=== PATIENT | female | born 1955 | race Caucasian/White ===

== ENCOUNTER 2016-08-27 16:52 | Inpatient (IN) | payer OTHER, MEDICARE ==
[~2016-08-27 16:52] MED LIST: ASEN5TAB SL; AUGM500T7 PO; BUSP5 PO; KCL10 PO; LEVO.125 PO; LIOT25 PO; PRED10 PO; PROT40TA PO; SYMB160A INH; TIGA300C2 PO; TRAZ50TA4 PO; VENL-39 PO
[2016-08-27 17:00] VITALS: BP 125/74; PULSE 86; RESP 18; TEMP 98.4; O2SAT 100
[2016-08-27] MEDS ORDERED: METOCLOPRAMIDE HCL 10 MG/2 ML VIAL IV PUSH ONE (17:30)
[2016-08-27] MEDS ORDERED: THIAMINE HCL 200 MG/2 ML VIAL IM ONE (17:30)
[2016-08-27] MEDS ORDERED: SODIUM CHLORIDE 0.9% FLUSH 10 ML FLUSH IVF PRN (17:30)
[2016-08-27] MEDS ORDERED: SODIUM CHLORID 0.9% 500 ML INJ 500 ML IV ONE (17:30)
--- NOTE | 2016-08-27 17:30 | PD ---
HPI Chief Complaint: Headache Time Seen by Provider: 17:30 Travel History International Travel<30 days: No Contact w/Intl Traveler<30days: No Traveled to known affect area: No PFSH Past Medical History Autoimmune Disease: No Blood Disorders: No Bipolar Disorder: Yes Anxiety: Yes Depression: Yes Cancer: No Cardiovascular Problems: No High Cholesterol: Yes COPD: Yes Diabetes: No Diminished Hearing: No Endocrine: Yes (HYPOTHYROIDISM) Gastrointestinal Disorders: Yes GERD: Yes Genitourinary: Yes Headaches: Yes (MIGRAINES) Hiatal Hernia: Yes Immune Disorder: No Implanted Vascular Access Dvce: Yes Musculoskeletal: Yes Neurologic: Yes Psychiatric: Yes (ETOH ABUSE) Reproductive: No Respiratory: Yes Thyroid Disease: Yes Triglycerides - High: Yes Menopausal: Yes Past Surgical History Abdominal Surgery: Yes (HERNIA REPAIR) AICD: No Appendectomy: Yes Arteriovenous Shunt: No Cardiac Surgery: No Ear Surgery: No Endocrine Surgery: No Eye Surgery: No Genitourinary Surgery: No Gynecologic Surgery: No Insulin Pump: No Joint Replacement: Yes (LEFT KNEE) Oral Surgery: No Pacemaker: No Thoracic Surgery: No Social History Alcohol Use: Yes (1 LITER VODKA Q DAY) Tobacco Use: Yes Substance Use: No Allergies-Medications (Allergen,Severity, Reaction): Coded Allergies: Pamelor (Verified Allergy, Severe, UNKNOWN, 01/28/15) Vistaril (Verified Allergy, Severe, HALLUCINATIONS, 01/28/15) Buspar (Verified Allergy, Intermediate, UNKNOWN, 01/28/15) Reported Meds & Prescriptions Reported Meds & Active Scripts Active Buspar 5 Mg Tab (Buspirone HCl) 5 Mg Tab 5 Mg PO DAILY 7 Days Klor-Con 10 (Potassium Chloride) 10 Meq Tabcr 40 Meq PO Q12HR 7 Days Deltasone 10 Mg Tab (Prednisone) 10 Mg Tab 10 Mg PO DAILY 7 Days Protonix (Pantoprazole Sodium) 40 Mg Tabdr 40 Mg PO Q12HR 30 Days Cytomel (Liothyronine Sodium) 25 Mcg Tab 25 Mcg PO DAILY Synthroid (Levothyroxine Sodium) 125 Mcg Tab 125 Mcg PO DAILY@0600 30 Days Symbicort (Budesonide/Formoterol Fumarate) 60 Puff Aero 2 Puff INH Q12HR 30 Days Augmentin 500MG/125MG (Amoxicillin/Clavulanate Potassium) 500 Mg Tab 500 Mg PO Q8HR 5 Days Reported Buspar 5 Mg Tab (Buspirone HCl) 5 Mg Tab 5 Mg PO BID Tigan (Trimethobenzamide HCl) 300 Mg Cap 300 Mg PO Trazodone Hcl (Trazodone HCl) 50 Mg Tab 50 Mg PO BID Saphris 5 mg (Asenapine Maleate 5 mg) 5 Mg Sub 1 Tab SL BID Venlafaxine Hcl Er 75 Mg Tab (Venlafaxine HCl) 75 Mg Tee 75 Mg PO DAILY Data Data Orders Electrocardiogram (08/27/16 17:29) Prothrombin Time / Inr (Pt) (08/27/16 17:29) Complete Blood Count With Diff (08/27/16 17:29) Comprehensive Metabolic Panel (08/27/16:29) Drug Screen, Random Urine (08/27/16:29) Troponin I (08/27/16 17:29) Urinalysis - C+S If Indicated (08/27/16 17:29) Ct Brain W/O Iv Contrast(Rout) (08/27/16 17:29) Chest, Single Ap (08/27/16 17:29) Ecg Monitoring (08/27/16 17:29) Iv Access Insert/Monitor (08/27/16 17:29) Oximetry (08/27/16 17:29) Sodium Chloride 0.9% Flush (Ns Flush) (08/27/16 17:30) Alcohol (Ethanol) (08/27/16 17:29) Metoclopramide Inj (Reglan Inj) (08/27/16 17:30) Lipase (08/27/16 17:29) Thiamine Inj (Thiamine Inj) (08/27/16 17:30) Ns (Bolus) Inj (08/27/16 17:30) Richie Lemus Aug 27, 2016 17:30
[2016-08-27 17:45] VITALS: BP 125/74; PULSE 86; RESP 18; TEMP 98.4; O2SAT 98; O2SAT 99
--- NOTE | 2016-08-27 17:54 | RADRPT ---
EXAM DATE/TIME: 08/27/2016 17:27 [facility] COMPARISON: CHEST SINGLE AP, February 02, 2015, 3:11. INDICATIONS : Short of breath MEDICAL HISTORY : Cerebrovascular disease. Chronic obstructive pulmonary disease. Asthma SURGICAL HISTORY : None. ENCOUNTER: Initial ACUITY: 2 months PAIN SCORE: 0/10 LOCATION: chest FINDINGS: Mild left lung base atelectasis and/or infiltrate is seen. There is no appreciable pleural effusion f or technique. Heart and mediastinum are unremarkable. There is lucency overlapping the right hemidia phragm probably the patient's colon interposed at this site and there may be slight atelectasis in th e right lung base as well. CONCLUSION: Mild left lung base atelectasis and/or infiltrate is seen. Evgeny Barba MD on August 27, 2016 at 17:51 Board Certified Radiologist. This report was verified electronically.
[2016-08-27 18:26] LABS: AUTOMATED NEUTROPHIL # 4.6 TH/MM3 (1.8-7.7); BASOPHIL % 0.8 % (0.0-2.0); EOSINOPHIL % 0.4 % (0.0-4.0); HEMATOCRIT 41.6 % (35.0-46.0); LYMPH % 19.6 % (9.0-44.0); LYMPHOCYTE # 1.2 TH/MM3 (1.0-4.8); MEAN CELL VOLUME 101.6 FL (80.0-100.0); MEAN CORPUSCULAR HEMOGLOBIN 34.7 PG (27.0-34.0); MEAN CORPUSCULAR HGB CONC 34.2 % (32.0-36.0); MONO % 5.9 % (0.0-8.0); NEUT % 73.3 % (16.0-70.0); PLATELET COUNT 86 TH/MM3 (150-450); RED BLOOD COUNT 4.09 MIL/MM3 (4.00-5.30); RED CELL DISTRIBUTION WIDTH 15.9 % (11.6-17.2); WHITE BLOOD COUNT 6.2 TH/MM3 (4.0-11.0)
[2016-08-27 18:29] LABS: BLOOD, URINE NEG (NEG); GLUCOSE,URINE NEG (NEG); KETONE, URINE NEG (NEG); NITRITE,URINE NEG (NEG); SQUAMOUS EPITHELIAL CELL URINE 1 /hpf (0-5); URINE COLOR LIGHT-YELLOW (YELLW/STRAW)
[2016-08-27 18:29] LABS: HEMO FLAGS AUTO DIFF
[2016-08-27 18:33] LABS: AMPHETAMINE, URINE NEG (NEG); BARBITURATES, URINE NEG (NEG); COCAINE, URINE NEG (NEG)
[2016-08-27 18:35] LABS: COMMENT (UR) CATH-CULT NOT IND; CULTURE IF INDICATED CATH CULTURE NOT IND
[2016-08-27 18:37] LABS: INTERNATIONAL NORMALIZED RATIO 1.1 RATIO
--- NOTE | 2016-08-27 18:37 | RADRPT ---
EXAM DATE/TIME: 08/27/2016 18:17 [facility] COMPARISON: CT BRAIN W/O CONTRAST, January 29, 2015, 10:45. INDICATIONS : Cephalgia. RADIATION DOSE: 46.03 CTDIvol (mGy) MEDICAL HISTORY : None SURGICAL HISTORY : None. ENCOUNTER: Initial ACUITY: 1 day PAIN SCALE: 5/10 LOCATION: cranial TECHNIQUE: Multiple contiguous axial images were obtained of the head. Using automated exposure control and adj ustment of the mA and/or kV according to patient size, radiation dose was kept as low as reasonably a chievable to obtain optimal diagnostic quality images. FINDINGS: There is no evidence for intracranial hemorrhage, mass effect, mass lesions, edema, or extra-axial fl uid collections. The visualized bony structures appear intact. The ventricles are normal size for t he patient's age. There are no signs of acute infarction for technique. CONCLUSION: Unremarkable study. Evgeny Barba MD on August 27, 2016 at 18:34 Board Certified Radiologist. This report was verified electronically.
[2016-08-27 18:49] LABS: ALKALINE PHOSPHATASE 161 U/L (45-117); ALT (GPT) 108 U/L (10-53); ANION GAP 13 MEQ/L (5-15); AST (GOT) 295 U/L (15-37); BICARBONATE 30.7 MEQ/L (21.0-32.0); BLOOD UREA NITROGEN 2 MG/DL (7-18); CHLORIDE 83 MEQ/L (98-107); GLOMERULAR FILTRATION RATE 98 ML/MIN (>89); SODIUM (NA) 127 MEQ/L (136-145); TOTAL BILIRUBIN ADULT 0.9 MG/DL (0.2-1.0)
[2016-08-27] MEDS ORDERED: LACTTAB8 PO (19:19)
[2016-08-27] MEDS ORDERED: BUPR75TA PO (19:19)
[2016-08-27] MEDS ORDERED: OLAN20TA PO (19:19)
[2016-08-27] MEDS ORDERED: FLUO40CA PO (19:19)
[2016-08-27] MEDS ORDERED: LOVA40TA PO (19:19)
[2016-08-27] MEDS ORDERED: GABA600T PO (19:19)
[2016-08-27] MEDS ORDERED: MOBI7.5T PO (19:19)
--- NOTE | 2016-08-27 19:19 | PD ---
HPI Chief Complaint: General Weakness Time Seen by Provider: 17:29 Travel History International Travel<30 days: No Contact w/Intl Traveler<30days: No Traveled to known affect area: No History of Present Illness HPI 60-year-old female came to the emergency room for multiple complaints that are been going on for past couple months. However, her most recent complaint is nausea and vomiting and generalized weakness. Patient was having some slurred speech while she was talking and when I asked if she has been drinking alcohol she said she had some tonight. She says she has not seen her primary care in many years but has an appointment with him tomorrow. Vital signs were relatively stable. PFSH Past Medical History Narrative Medical List of her past medical, surgical, social and family history was reviewed from the nursing note. Autoimmune Disease: No Blood Disorders: No Bipolar Disorder: Yes Anxiety: Yes Depression: Yes Cancer: No Cardiovascular Problems: No High Cholesterol: Yes COPD: Yes Diabetes: No Diminished Hearing: No Endocrine: Yes (HYPOTHYROIDISM) Gastrointestinal Disorders: Yes GERD: Yes Genitourinary: Yes Headaches: Yes (MIGRAINES) Hiatal Hernia: Yes Immune Disorder: No Implanted Vascular Access Dvce: Yes Musculoskeletal: Yes Neurologic: Yes Psychiatric: Yes (ETOH ABUSE) Reproductive: No Respiratory: Yes Thyroid Disease: Yes Triglycerides - High: Yes ?: Not Menopausal: Yes Past Surgical History Abdominal Surgery: Yes (HERNIA REPAIR) AICD: No Appendectomy: Yes Arteriovenous Shunt: No Cardiac Surgery: No Ear Surgery: No Endocrine Surgery: No Eye Surgery: No Genitourinary Surgery: No Gynecologic Surgery: No Insulin Pump: No Joint Replacement: Yes (LEFT KNEE) Neurologic Surgery: No Oral Surgery: No Pacemaker: No Thoracic Surgery: No Other Surgery: No Social History Alcohol Use: Yes (1 LITER VODKA Q DAY) Tobacco Use: Yes Substance Use: No Allergies-Medications (Allergen,Severity, Reaction): Coded Allergies: Pamelor (Verified Allergy, Severe, UNKNOWN, 08/27/16) Vistaril (Verified Allergy, Severe, HALLUCINATIONS, 08/27/16) Buspar (Verified Allergy, Intermediate, UNKNOWN, 08/27/16) Comments List of her allergies reviewed from the nursing note. Reported Meds & Prescriptions Reported Meds & Active Scripts Active Reported Lactobacillus Acidophilus 1 Tab Tab 1 Tab PO DAILY Take with food Bupropion HCl 75 Mg Tab 75 Mg PO DAILY Fluoxetine (Fluoxetine HCl) 40 Mg Cap 40 Cap PO DAILY Olanzapine 20 Mg Tab 20 Mg PO HS Gabapentin 600 Mg Tab 600 Mg PO TID Lovastatin 40 Mg Tab 40 Mg PO DAILY Mobic (Meloxicam) 7.5 Mg Tab 7.5 Mg PO DAILY Narrative Medication List of her home medications reviewed from the nursing note. Review of Systems Except as stated in HPI: all other systems reviewed are Neg Physical Exam Narrative GENERAL: Awake, alert, mild distress, looks older than her age SKIN: Focused skin assessment warm/dry. HEAD: Atraumatic. Normocephalic. EYES: Pupils equal and round. No scleral icterus. No injection or drainage. ENT: No nasal bleeding or discharge. Mucous membranes pink and moist. NECK: Trachea midline. No JVD. CARDIOVASCULAR: Regular rate and rhythm. No murmur appreciated. RESPIRATORY: No accessory muscle use. Clear to auscultation. Breath sounds equal bilaterally. GASTROINTESTINAL: Abdomen soft, non-tender, nondistended. Hepatic and splenic margins not palpable. MUSCULOSKELETAL: No obvious deformities. No clubbing. No cyanosis. No edema. NEUROLOGICAL: Awake and alert. No obvious cranial nerve deficits. Motor grossly within normal limits. Slightly slurred speech. PSYCHIATRIC: Appropriate mood and affect; insight and judgment normal. Data Data Last Documented VS Vital Signs Date Time Temp Pulse Resp B/P Pulse Ox O2 Delivery O2 Flow Rate FiO2 08/27/16 17:45 86 20 99 Room Air 08/27/16 17:45 98.4 125/74 Orders Electrocardiogram (08/27/16 17:29) Prothrombin Time / Inr (Pt) (08/27/16 17:29) Complete Blood Count With Diff (08/27/16 17:29) Comprehensive Metabolic Panel (08/27/16 17:29) Drug Screen, Random Urine (08/27/16 17:29) Troponin I (08/27/16 17:29) Urinalysis - C+S If Indicated (08/27/16 17:29) Ct Brain W/O Iv Contrast(Rout) (08/27/16 17:29) Chest, Single Ap (08/27/16 17:29) Ecg Monitoring (08/27/16 17:29) Iv Access Insert/Monitor (08/27/16 17:29) Oximetry (08/27/16 17:29) Sodium Chloride 0.9% Flush (Ns Flush) (08/27/16 17:30) Alcohol (Ethanol) (08/27/16 17:29) Metoclopramide Inj (Reglan Inj) (08/27/16 17:30) Lipase (08/27/16 17:29) Thiamine Inj (Thiamine Inj) (08/27/16 17:30) Sodium Chlorid 0.9% 500 Ml Inj (Ns 500 M (08/27/16 17:30) Potassium Chlor 20 Meq Premix (Kcl 20 Me (08/27/16 19:30) Admit Order (Ed Use Only) (08/27/16 19:24) Labs Laboratory Tests Test 08/27/16 08/27/16 17:50 18:00 Urine Color LIGHT-YELLOW Urine Turbidity CLEAR Urine pH 6.0 Urine Specific [place] 1.002 Urine Protein NEG mg/dL Urine Glucose (UA) NEG mg/dL Urine Ketones NEG mg/dL Urine Occult Blood NEG Urine Nitrite NEG Urine Bilirubin NEG Urine Urobilinogen LESS THAN 2.0 MG/DL Urine Leukocyte Esterase NEG Urine RBC LESS THAN 1 /hpf Urine WBC LESS THAN 1 /hpf Urine Squamous Epithelial 1 /hpf Cells Microscopic Urinalysis Comment CATH-CULT NOT IND Urine Opiates Screen NEG Urine Barbiturates Screen NEG Urine Amphetamines Screen NEG Urine Benzodiazepines Screen NEG Urine Cocaine Screen NEG Urine Cannabinoids Screen NEG White Blood Count 6.2 TH/MM3 Red Blood Count 4.09 MIL/MM3 Hemoglobin 14.2 GM/DL Hematocrit 41.6 % Mean Corpuscular Volume 101.6 FL Mean Corpuscular Hemoglobin 34.7 PG Mean Corpuscular Hemoglobin 34.2 % Concent Red Cell Distribution Width 15.9 % Platelet Count 86 TH/MM3 Mean Platelet Volume 8.7 FL Neutrophils (%) (Auto) 73.3 % Lymphocytes (%) (Auto) 19.6 % Monocytes (%) (Auto) 5.9 % Eosinophils (%) (Auto) 0.4 % Basophils (%) (Auto) 0.8 % Neutrophils # (Auto) 4.6 TH/MM3 Lymphocytes # (Auto) 1.2 TH/MM3 Monocytes # (Auto) 0.4 TH/MM3 Eosinophils # (Auto) 0.0 TH/MM3 Basophils # (Auto) 0.0 TH/MM3 CBC Comment AUTO DIFF Differential Total Cells 100 Counted Neutrophils % (Manual) 73 % Band Neutrophils % 4 % Lymphocytes % 22 % Monocytes % 1 % Neutrophils # (Manual) 4.8 TH/MM3 Nucleated Red Blood Cells 1 /100 WBC Differential Comment FINAL DIFF MANUAL Platelet Estimate LOW Platelet Morphology Comment NORMAL Target Cells 1+ Stomatocytes 1+ Prothrombin Time 12.0 SEC Prothromb Time International 1.1 RATIO Ratio Sodium Level 127 MEQ/L Potassium Level 3.0 MEQ/L Chloride Level 83 MEQ/L Carbon Dioxide Level 30.7 MEQ/L Anion Gap 13 MEQ/L Blood Urea Nitrogen 2 MG/DL Creatinine 0.62 MG/DL Estimat Glomerular Filtration 98 ML/MIN Rate Random Glucose 94 MG/DL Calcium Level 8.6 MG/DL Total Bilirubin 0.9 MG/DL Aspartate Amino Transf 295 U/L (AST/SGOT) Alanine Aminotransferase 108 U/L (ALT/SGPT) Alkaline Phosphatase 161 U/L Troponin I LESS THAN 0.02 NG/ML Total Protein 7.1 GM/DL Albumin 3.2 GM/DL Lipase 40 U/L Ethyl Alcohol Level LESS THAN 3 MG/DL MDM Medical Decision Making Medical Screen Exam Complete: Yes Emergency Medical Condition: Yes Medical Record Reviewed: Yes Interpretation(s) Twelve-lead EKG was reviewed by me. Normal sinus rhythm, left axis deviation, questionable old inferior MA, poor R-wave progression, nonspecific ST-T wave changes. Heart rate of 83 bpm. Differential Diagnosis Alcohol intoxication, electrolyte abnormality, dehydration Narrative Course 7:13 PM the test results are back. Patient is however the tree make with abnormal LFTs. Her alcohol level is 0. I would like to admit her for hyponatremia. Awaiting for the hospitalist to call back. Critical Care Narrative Aggregate critical care time was 45 minutes. Time to perform other separately billable procedures was not included in the critical care time. My time did not include minutes spent treating any other patients simultaneously or on activities that did not directly contribute to the patient's treatment. The services I provided to this patient were to treat and/or prevent clinically significant deterioration that could result in: Severe hyponatremia, hypokalemia, replacement therapy I provided critical care services requiring my management, as noted below: Chart data review, documentation time, medication orders and management, vital sign assessments/reviewing monitor data, ordering and reviewing lab tests, ordering and interpreting/reviewing x-rays and diagnostic studies, care of the patient and discussion of the patient with the admitting physicians. Procedures EKG Prior to Arrival: No Diagnosis Primary Impression: Hyponatremia Additional Impressions: Elevated LFTs Hypokalemia DT risk Chronic alcoholic brain syndrome Vomiting Qualified Code: R11.2 - Non-intractable vomiting with nausea, unspecified vomiting type Admitting Information Admitting Physician Requests: Admit Aamir Quarles MD Aug 27, 2016 19:19
[2016-08-27] MEDS ORDERED: POTASSIUM CHLOR 20 MEQ PREMIX 100 ML IV ONE (19:30)
[2016-08-27] MEDS ORDERED: ACETAMINOPHEN 325 MG TAB PO PRN (19:45)
[2016-08-27] MEDS ORDERED: MORPHINE SULFATE 4 MG/ML INJ IV PRN (19:45)
[2016-08-27] MEDS ORDERED: FLUMAZENIL 0.5 MG/5 ML VIAL IV PUSH PRN (19:45)
[2016-08-27] MEDS ORDERED: SODIUM CHLORIDE 0.9% FLUSH 10 ML FLUSH IV FLUSH PRN (19:45)
[2016-08-27] MEDS ORDERED: LORazepam 2 MG/ML VIAL IV PUSH PRN ×3 (19:45)
[2016-08-27] MEDS ORDERED: LORazepam 2 MG TAB PO PRN (19:45)
[2016-08-27] MEDS ORDERED: RESP: ALBUTEROL 2.5 MG/IPRATROPIUM 0.5 MG NEB (PRN) NEB (19:45)
[2016-08-27] MEDS ORDERED: BISACODYL 10 MG SUPP RECTAL PRN (19:45)
[2016-08-27] MEDS ORDERED: HALOPERIDOL LACTATE 5 MG/ML AMP IM PRN (19:45)
--- NOTE | 2016-08-27 19:45 | HHI.HP ---
HPI Service [facility] Primary [facility] Physician Fabricio Mcgrath MD Admission Diagnosis chronic alcoholic, vomiting, hyponatremia, hypokalemia Diagnoses: (1) Alcohol abuse Diagnosis: Principal (2) Hypokalemia Diagnosis: Principal (3) Hyponatremia Diagnosis: Principal (4) Elevated LFTs Diagnosis: Principal (5) PNA (pneumonia) Diagnosis: Principal (6) Thrombocytopenia Diagnosis: Principal (7) Tobacco abuse Diagnosis: Principal Travel History International Travel<30 Days: No Contact w/Intl Traveler <30 Da: No Traveled to Known Affected Are: No History of Present Illness This is a 60-year-old female with a PMH of Anxiety, Depression, Bipolar Disorder , COPD, Alcohol Abuse and Tobacco Abuse who presented to the ER with complaints of generalized weakness, nausea and vomiting x1 day in addition to "migraine headache". Denies fever, chills or SOB, does note non-productive cough x2 days. Noted to be acutely intoxicated while in ER, per report pt drinks approx 1L Vodka per day, no alcohol since start of symptoms. Alcohol <3. CBC at baseline. Platelets 86, previously 1:30 on 02/01/15. Na 127. K+ 3.0. LFTs elevated. INR 1.1. Urine Drug Screen negative. UA negative. CXR with mild left lung base infiltrate. CT Head with no acute findings. Review of Systems Except as stated in HPI: all other systems reviewed are Neg ROS: 14 point review of systems otherwise negative. Past Family Social History Past Medical History PMH: Anxiety, Depression, Bipolar Disorder, COPD, Alcohol Abuse and Tobacco Abuse Past Surgical History PAST SURGICAL HISTORY: Hernia Repair, Appendectomy, Left Knee Replacement Allergies: Coded Allergies: Pamelor (Verified Allergy, Severe, UNKNOWN, 08/27/16) Vistaril (Verified Allergy, Severe, HALLUCINATIONS, 08/27/16) Buspar (Verified Allergy, Intermediate, UNKNOWN, 08/27/16) Family History PAST FAMILY HISTORY: Reviewed. No h/o DM or CAD Social History PAST SOCIAL HISTORY: Drinks 1 L Vodka per day. Positive for tobacco. Negative for drugs. Physical Exam Vital Signs Vital Signs Date Time Temp Pulse Resp B/P Pulse Ox O2 Delivery O2 Flow Rate FiO2 08/27/16 17:45 86 20 99 Room Air 08/27/16 17:45 98.4 86 18 125/74 99 Room Air 08/27/16 17:45 86 18 125/74 98 Room Air 08/27/16 17:00 98.4 86 18 125/74 100 Physical Exam PE: GENERAL: Middle-aged white female in no acute distress, sitting up in stretcher. Significant other bedside. HEENT: PERRLA, EOMI. No scleral icterus or conjunctival pallor. No lid lag or facial droop. CARDIOVASCULAR: Regular rate and rhythm. No obvious murmurs to auscultation. No chest tenderness to palpation. RESPIRATORY: No obvious rhonchi or wheezing. Clear to auscultation. Breath sounds equal bilaterally. GASTROINTESTINAL: Abdomen soft, non-tender, nondistended. BS normal. MUSCULOSKELETAL: Extremities without clubbing, cyanosis, or edema. No obvious deformities. NEUROLOGICAL: Awake, alert and oriented x4. No focal neurologic deficits. Moving both upper and lower extremities spontaneously. Laboratory Laboratory Tests Test 08/27/16 08/27/16 17:50 18:00 Urine Color LIGHT-YELLOW Urine Turbidity CLEAR Urine pH 6.0 Urine Specific [place] 1.002 Urine Protein NEG Urine Glucose (UA) NEG Urine Ketones NEG Urine Occult Blood NEG Urine Nitrite NEG Urine Bilirubin NEG Urine Urobilinogen LESS THAN 2.0 Urine Leukocyte Esterase NEG Urine RBC LESS THAN 1 Urine WBC LESS THAN 1 Urine Squamous Epithelial 1 Cells Microscopic Urinalysis Comment CATH-CULT NOT IND Urine Opiates Screen NEG Urine Barbiturates Screen NEG Urine Amphetamines Screen NEG Urine Benzodiazepines Screen NEG Urine Cocaine Screen NEG Urine Cannabinoids Screen NEG White Blood Count 6.2 Red Blood Count 4.09 Hemoglobin 14.2 Hematocrit 41.6 Mean Corpuscular Volume 101.6 Mean Corpuscular Hemoglobin 34.7 Mean Corpuscular Hemoglobin 34.2 Concent Red Cell Distribution Width 15.9 Platelet Count 86 Mean Platelet Volume 8.7 Neutrophils (%) (Auto) 73.3 Lymphocytes (%) (Auto) 19.6 Monocytes (%) (Auto) 5.9 Eosinophils (%) (Auto) 0.4 Basophils (%) (Auto) 0.8 Neutrophils # (Auto) 4.6 Lymphocytes # (Auto) 1.2 Monocytes # (Auto) 0.4 Eosinophils # (Auto) 0.0 Basophils # (Auto) 0.0 CBC Comment AUTO DIFF Prothrombin Time 12.0 Prothromb Time International 1.1 Ratio Sodium Level 127 Potassium Level 3.0 Chloride Level 83 Carbon Dioxide Level 30.7 Anion Gap 13 Blood Urea Nitrogen 2 Creatinine 0.62 Estimat Glomerular Filtration 98 Rate Random Glucose 94 Calcium Level 8.6 Total Bilirubin 0.9 Aspartate Amino Transf 295 (AST/SGOT) Alanine Aminotransferase 108 (ALT/SGPT) Alkaline Phosphatase 161 Troponin I LESS THAN 0.02 Total Protein 7.1 Albumin 3.2 Lipase 40 Ethyl Alcohol Level LESS THAN 3 Result Diagram: 08/27/16 1800 08/27/16 1800 Assessment and Plan Problem List: (1) Alcohol abuse ICD Code: F10.10 Status: Acute (2) Hypokalemia ICD Code: E87.6 Status: Acute (3) Hyponatremia ICD Code: E87.1 Status: Resolved (4) Elevated LFTs ICD Code: R94.5 Status: Acute (5) PNA (pneumonia) ICD Code: J18.9 Status: Acute (6) Thrombocytopenia ICD Code: D69.6 Status: Acute (7) Tobacco abuse ICD Code: Z72.0 Status: Acute Assessment and Plan A/P: 1. Alcohol Abuse: Drinks approx 1L Vodka per day, Alcohol level 0, c/o nausea/ vomiting, high risk for severe withdrawal/DT. CIWA, MVT/Thiamine/Folate replacement, Seizure Precautions. IVF for hydration. CT Head w/ no acute findings, images reviewed by me. 2. Hyponatremia: Na 127. Likely secondary to chronic alcohol abuse compounded by acute dehydration. IVF, repeat labs in am. 3. Hypokalemia: K+ 3.0, s/p replacement in ER, will recheck and replace as needed. 4. Elevated LFTs: Elevated in comparison to labs from 02/02/15, likely secondary to chronic alcohol abuse. Will monitor. Repeat labs in a.m. 5. Thrombocytopenia: Chronic. Platelets 86, previously 130 on 02/01/15. No active bleeding. Hgb stable. Will monitor, repeat labs in am. 6. PNA: CXR w/ mild LLL infiltrate, +cough, afebrile, no leukocytosis. Start IV Rocephin/Zithro, DuoNeb prn. 7. Tobacco Abuse: Pt counselled. Ativan prn if needed. 8. DVT Prophylaxis: SCD/Teds. 9. Social work for d/c planning as needed. 10. Case discussed w/ ER physician at length. Physician Certification 2 Midnight Certification Type: Admission for Inpatient Services Order for Inpatient Services The services are ordered in accordance with Medicare regulations or non- Medicare payer requirements, as applicable. In the case of services not specified as inpatient-only, they are appropriately provided as inpatient services in accordance with the 2-midnight benchmark. Estimated LOS (days): 2 days is the estimated time the patient will need to remain in the hospital, assuming treatment plan goals are met and no additional complications. Post-Hospital Plan: Not yet determined Emilee Stockton MD Aug 27, 2016 19:45
[2016-08-27 19:48] VITALS: BP 106/63; PULSE 110; RESP 22; O2SAT 97
[2016-08-27] MEDS: SODIUM CHLOR 0.9% 1000 ML INJ 1,000 ML IV SCH (20:00)
[2016-08-27] MEDS: LORazepam 2 MG/ML VIAL IV PUSH PRN (20:01)
[2016-08-27 20:02] LABS: BANDS 4 % (0-6); CORRECTED NUCLEATED RBC 1 /100 WBC (0-0); NEUTROPHIL # MANUAL DIFF 4.8 TH/MM3 (1.8-7.7); POLYS (SEG NEUTROPHILS) 73 % (16-70); SCAN/DIFF FINAL DIFF MANUAL; WBC DIFF SAMPLE 100
[2016-08-27 20:03] LABS: TARGET CELLS 1+ (NORMAL)
[2016-08-27 20:05] LABS: PLATELET ESTIMATE SMEAR LOW (NORMAL); PLATELET MORPHOLOGY NORMAL (NORMAL); STOMATOCYTES 1+ (NORMAL)
[2016-08-27] MEDS: AZITHROMYCIN INJ 500 MG in SODIUM CHLOR 0.9% 250 ML INJ 250 ML IV SCH (20:55)
[2016-08-27] MEDS: SODIUM CHLORIDE 0.9% FLUSH 10 ML FLUSH IV FLUSH SCH (20:58)
[2016-08-27] MEDS: MULTIVITAMIN INJ 10 ML, FOLIC ACID INJ 1 MG in SODIUM CHLORID 0.9% 500 ML INJ 500 ML IV SCH (21:00)
[2016-08-27 21:10] VITALS: O2SAT 95
[2016-08-27 21:21] VITALS: BP 104/74; PULSE 96; RESP 16; O2SAT 96
[2016-08-27 21:53] VITALS: BP 133/93; PULSE 87; RESP 16; TEMP 98.1; O2SAT 97
[2016-08-27] MEDS: PANTOPRAZOLE SODIUM 40 MG VIAL IV PUSH SCH (22:15)
[2016-08-27] MEDS: cefTRIAXone INJ 1,000 MG in SODIUM CHLORIDE 0.9% INJ 100 ML IV SCH (22:15)
[2016-08-28 04:05] VITALS: BP 98/72; PULSE 93; RESP 16; TEMP 98; O2SAT 98
[2016-08-28] MEDS: SODIUM CHLOR 0.9% 1000 ML INJ 1,000 ML IV SCH ×2 (05:10→15:24)
[2016-08-28 08:00] VITALS: BP 122/83; PULSE 91; RESP 18; TEMP 97.4; O2SAT 95
[2016-08-28 08:07] LABS: AUTOMATED NEUTROPHIL # 3.2 TH/MM3 (1.8-7.7); BASOPHIL % 0.6 % (0.0-2.0); EOSINOPHIL % 1.1 % (0.0-4.0); HEMATOCRIT 39.3 % (35.0-46.0); LYMPH % 22.1 % (9.0-44.0); MEAN CELL VOLUME 102.6 FL (80.0-100.0); MEAN CORPUSCULAR HEMOGLOBIN 34.6 PG (27.0-34.0); MEAN CORPUSCULAR HGB CONC 33.7 % (32.0-36.0); MONO % 6.1 % (0.0-8.0); NEUT % 70.1 % (16.0-70.0); PLATELET COUNT 79 TH/MM3 (150-450); RED BLOOD COUNT 3.84 MIL/MM3 (4.00-5.30); RED CELL DISTRIBUTION WIDTH 15.7 % (11.6-17.2); WHITE BLOOD COUNT 4.5 TH/MM3 (4.0-11.0)
[2016-08-28 08:10] LABS: HEMO FLAGS AUTO DIFF
[2016-08-28 08:46] LABS: ALKALINE PHOSPHATASE 142 U/L (45-117); ALT (GPT) 87 U/L (10-53); ANION GAP 8 MEQ/L (5-15); AST (GOT) 188 U/L (15-37); BICARBONATE 32.2 MEQ/L (21.0-32.0); BLOOD UREA NITROGEN 2 MG/DL (7-18); CHLORIDE 92 MEQ/L (98-107); GLOMERULAR FILTRATION RATE 103 ML/MIN (>89); POTASSIUM 3.4 MEQ/L (3.5-5.1); SODIUM (NA) 132 MEQ/L (136-145); TOTAL BILIRUBIN ADULT 0.9 MG/DL (0.2-1.0)
[2016-08-28 08:47] LABS: SCAN/DIFF AUTO DIFF CONFIRMED; TARGET CELLS 1+ (NORMAL)
[2016-08-28 08:48] LABS: STOMATOCYTES 1+ (NORMAL)
[2016-08-28] MEDS: ONDANSETRON HCL 4 MG/2 ML VIAL IVP PRN (08:51)
[2016-08-28] MEDS: LORazepam 1 MG TAB PO PRN ×2 (08:51→17:12)
[2016-08-28] MEDS: SODIUM CHLORIDE 0.9% FLUSH 10 ML FLUSH IV FLUSH SCH ×2 (08:52→22:48)
[2016-08-28] MEDS: PANTOPRAZOLE SODIUM 40 MG VIAL IV PUSH SCH ×2 (08:52→22:48)
--- NOTE | 2016-08-28 09:52 | HHI.PR ---
Subjective Remarks Follow-up alcohol intoxication/aspiration pneumonia 08/28/16-patient seen and examined alert and oriented 3 however with hand tremors. Positive for sputum production and cough. currently afebrile Objective Vitals Vital Signs Date Time Temp Pulse Resp B/P Pulse Ox O2 Delivery O2 Flow Rate FiO2 08/28/16 08:00 97.4 91 18 122/83 95 08/28/16 04:05 98.0 93 16 98/72 98 08/27/16 21:53 98.1 87 16 133/93 97 08/27/16 21:21 96 16 104/74 96 Nasal Cannula 2 08/27/16 21:10 95 Nasal Cannula 2 08/27/16 19:48 110 22 106/63 97 Room Air 08/27/16 17:45 86 20 99 Room Air 08/27/16 17:45 98.4 86 18 125/74 99 Room Air 08/27/16 17:45 86 18 125/74 98 Room Air 08/27/16 17:00 98.4 86 18 125/74 100 I/O 08/27/16 08/27/16 08/27/16 08/28/16 08/28/16 08/28/16 07:00 15:00 23:00 07:00 15:00 23:00 Intake Total 480 ml Balance 480 ml Intake Oral 480 ml # Voids 2 Result Diagram: 08/28/16 0737 08/28/16 0737 Imaging Last Impressions Head CT [id number]/27/[id number] Signed Impressions: Service Date/Time: August 18:17 - CONCLUSION: Unremarkable study. Evgeny Barba MD Chest X-Ray [id number] Signed Impressions: Service Date/Time: August 17:27 - CONCLUSION: Mild left lung base atelectasis and/or infiltrate is seen. Evgeny Barba MD Objective Remarks GENERAL: NAD with hands tremors SKIN: Warm and dry. HEAD: Normocephalic. EYES: No scleral icterus. No injection or drainage. NECK: Supple, trachea midline. No JVD or lymphadenopathy. CARDIOVASCULAR: Regular rate and rhythm without murmurs, gallops, or rubs. RESPIRATORY: Breath sounds equal bilaterally. No accessory muscle use. GASTROINTESTINAL: Abdomen soft, non-tender, nondistended. MUSCULOSKELETAL: No cyanosis, or edema. BACK: Nontender without obvious deformity. No CVA tenderness. A/P Problem List: (1) Alcohol abuse ICD Code: F10.10 Status: Acute (2) Hypokalemia ICD Code: E87.6 Status: Acute (3) Hyponatremia ICD Code: E87.1 Status: Resolved (4) Elevated LFTs ICD Code: R94.5 Status: Acute (5) PNA (pneumonia) ICD Code: J18.9 Status: Acute (6) Thrombocytopenia ICD Code: D69.6 Status: Acute (7) Tobacco abuse ICD Code: Z72.0 Status: Chronic (8) Pneumonia, aspiration ICD Code: J69.0 Status: Acute (9) Bacterial pneumonia ICD Code: J15.9 Status: Chronic (10) Anxiety and depression ICD Code: F41.9 Status: Chronic (11) Hyperlipidemia ICD Code: E78.5 Status: Acute Assessment and Plan 60-year-old female with 1. Alcohol Abuse: Alcohol cessation counseling provided. Continue CIWA protocol , MVT/Thiamine/Folate replacement, Seizure Precautions. IVF for hydration and add Librium when necessary for DTs. 2. Hyponatremia: Likely secondary to chronic alcohol abuse compounded by acute dehydration. Continue with IVF and monitor electrolyte 3. Hypokalemia: Replace electrolyte and monitor 4. Elevated LFTs: likely secondary to chronic alcohol abuse however will check hepatitis profile panel. Continue to hold statin 5. Thrombocytopenia: Chronic. Platelets 86, previously 130 on 02/01/15. No active bleeding. Hgb stable. Continue to monitor 6. Bacteria PNA/aspiration pneumonia: CXR w/ mild LLL infiltrate, continue IV Rocephin/Zithro, DuoNeb prn. 7. Tobacco Abuse: Pt counselled. Ativan prn if needed. 8. DVT Prophylaxis: SCD/Teds. 9. Hyperlipidemia: Secondary to elevated LFTs, continue to hold statin 10. Anxiety/depression: Resume Wellbutrin and Prozac Rashel Luna MD Aug 28, 2016 09:52
[2016-08-28 11:48] VITALS: BP 95/66; PULSE 101; RESP 17; TEMP 97.6; O2SAT 95
[2016-08-28 13:57] VITALS: PULSE 102
[2016-08-28 15:27] VITALS: BP 102/74; PULSE 94; RESP 21; TEMP 98.5; O2SAT 98
[2016-08-28 19:00] VITALS: BP 144/89; PULSE 89; RESP 19; TEMP 98.7; O2SAT 97
--- NOTE | 2016-08-28 19:39 | EKG ---
Date Performed: 08/27/2016 Time Performed: 17:15:40 PTAGE: 60 years EKG: Sinus rhythm MARKED LEFT AXIS DEVIATION PATTERN CONSISTENT WITH PULMONARY DISEASE INCOMPLETE RIGHT BUNDLE BRANCH BLOCK Compared to prior tracing no significant change ABNORMAL ECG INTERPRETATION BASED ON A DEFAULT AGE OF 38 YEARS NO PREVIOUS TRACING DOCTOR: Regino Naik Interpretating Date/Time 08/28/2016 19:35:23
--- NOTE | 2016-08-28 20:08 | EKG ---
Date Performed: 08/27/2016 Time Performed: 19:19:22 PTAGE: 60 years EKG: Sinus rhythm WITH OCCASIONAL SUPRAVENTRICULAR PREMATURE COMPLEXES INCOMPLETE RIGHT BUNDLE BRANCH BLOCK Compared t o previous tracing, ST-T wave changes have improved BORDERLINE ECG PREVIOUS TRACING : 01/28/2015 07.54 DOCTOR: Regino Naik Interpretating Date/Time 08/28/2016 20:07:37
[2016-08-28] MEDS: AZITHROMYCIN INJ 500 MG in SODIUM CHLOR 0.9% 250 ML INJ 250 ML IV SCH (20:27)
[2016-08-28] MEDS ORDERED: THIAMINE INJ 100 MG in SODIUM CHLORIDE 0.9% INJ 100 ML IV SCH (21:00)
[2016-08-28] MEDS: cefTRIAXone INJ 1,000 MG in SODIUM CHLORIDE 0.9% INJ 100 ML IV SCH (22:47)
[2016-08-28] MEDS: LORazepam 2 MG/ML VIAL IV PUSH PRN (22:47)
[2016-08-28] MEDS: MULTIVITAMIN INJ 10 ML, FOLIC ACID INJ 1 MG in SODIUM CHLORID 0.9% 500 ML INJ 500 ML IV SCH (22:55)
[2016-08-29] VITALS: BP 149/79; PULSE 83; RESP 16; TEMP 98.6; O2SAT 96
[2016-08-29 04:00] VITALS: BP 140/93; PULSE 90; RESP 17; TEMP 98.3; O2SAT 93
[2016-08-29 06:00] LABS: BASOPHIL % 0.9 % (0.0-2.0); EOSINOPHIL % 0.7 % (0.0-4.0); HEMATOCRIT 35.4 % (35.0-46.0); LYMPH % 21.6 % (9.0-44.0); LYMPHOCYTE # 0.9 TH/MM3 (1.0-4.8); MEAN CELL VOLUME 102.6 FL (80.0-100.0); MEAN CORPUSCULAR HGB CONC 35.1 % (32.0-36.0); MONO % 7.5 % (0.0-8.0); NEUT % 69.3 % (16.0-70.0); PLATELET COUNT 76 TH/MM3 (150-450); RED BLOOD COUNT 3.45 MIL/MM3 (4.00-5.30); RED CELL DISTRIBUTION WIDTH 16.3 % (11.6-17.2); WHITE BLOOD COUNT 4.4 TH/MM3 (4.0-11.0)
[2016-08-29 06:05] LABS: HEMO FLAGS AUTO DIFF
[2016-08-29 06:39] LABS: ALKALINE PHOSPHATASE 143 U/L (45-117); ALT (GPT) 71 U/L (10-53); ANION GAP 8 MEQ/L (5-15); AST (GOT) 125 U/L (15-37); BICARBONATE 32.4 MEQ/L (21.0-32.0); BLOOD UREA NITROGEN 2 MG/DL (7-18); CHLORIDE 95 MEQ/L (98-107); GLOMERULAR FILTRATION RATE 112 ML/MIN (>89); POTASSIUM 3.1 MEQ/L (3.5-5.1); SODIUM (NA) 135 MEQ/L (136-145); TOTAL BILIRUBIN ADULT 0.8 MG/DL (0.2-1.0)
--- NOTE | 2016-08-29 07:24 | HHI.PR ---
Subjective Remarks Follow-up alcohol intoxication/aspiration pneumonia 08/28/16-patient seen and examined alert and oriented 3 however with hand tremors. Positive for sputum production and cough. currently afebrile 08/29/16-AFVSS o/n. Patient c/o [id number] anxiety. She associates this with alcohol WD. She c/o vague, visual hallucinations (cannot specify what she sees) and blurry vision. Feels a little shaky this morning. No other complaints. Cough and sputum production improved. Objective Vitals Vital Signs Date Time Temp Pulse Resp B/P Pulse Ox O2 Delivery O2 Flow Rate FiO2 08/29/16 04:00 98.3 90 17 140/93 93 08/29/16 00:00 98.6 83 16 149/79 96 08/28/16 19:00 98.7 89 19 144/89 97 08/28/16 19:00 98.7 89 19 144/89 97 08/28/16 15:27 98.5 94 21 102/74 98 08/28/16 13:57 102 08/28/16 11:48 97.6 101 17 95/66 95 08/28/16 08:00 97.4 91 18 122/83 95 I/O 08/28/16 08/28/16 08/28/16 08/29/16 08/29/16 08/29/16 07:00 15:00 23:00 07:00 15:00 23:00 Intake Total 480 ml 1518 ml 720 ml Balance 480 ml 1518 ml 720 ml Intake Oral 480 ml 720 ml IV Total 1518 ml # Voids 2 2 3 # Bowel Movements 0 Result Diagram: 08/29/16 0530 08/29/16 0530 Objective Remarks GENERAL: Sitting up in bed. Appears slightly agitated with faint hand tremor. SKIN: Warm and dry. No rashes. HEAD: Normocephalic. EYES: No scleral icterus. No injection or drainage. NECK: Supple, trachea midline. No JVD or lymphadenopathy. CARDIOVASCULAR: Regular rate and rhythm without murmurs, gallops, or rubs. RESPIRATORY: Breath sounds equal bilaterally. No accessory muscle use. CTAB. No adventitious sounds noted this AM. GASTROINTESTINAL: Abdomen soft, non-tender, nondistended. MUSCULOSKELETAL: No cyanosis, or edema. BACK: Nontender without obvious deformity. No CVA tenderness. NEURO: A&O x3. Judgement and insight appear ~ normal. Faint tremor in hands bilaterally when arms extended. No asterixis. A/P Problem List: (1) Alcohol abuse ICD Code: F10.10 Status: Acute (2) Hypokalemia ICD Code: E87.6 Status: Acute (3) Hyponatremia ICD Code: E87.1 Status: Resolved (4) Elevated LFTs ICD Code: R94.5 Status: Acute (5) PNA (pneumonia) ICD Code: J18.9 Status: Acute (6) Thrombocytopenia ICD Code: D69.6 Status: Acute (7) Tobacco abuse ICD Code: Z72.0 Status: Chronic (8) Pneumonia, aspiration ICD Code: J69.0 Status: Acute (9) Bacterial pneumonia ICD Code: J15.9 Status: Chronic (10) Anxiety and depression ICD Code: F41.9 Status: Chronic (11) Hyperlipidemia ICD Code: E78.5 Status: Acute Assessment and Plan 60-year-old female with 1. Alcohol Abuse: Alcohol cessation counseling provided. Continue CIWA protocol , MVT/Thiamine/Folate replacement, Seizure Precautions. IVF for hydration and add Librium when necessary for DTs. Add PRN clonidine for BP elevation (may also help with WD sxs). Check thiamine, B12, folate, ammonia. 2. Hyponatremia: improving. Likely secondary to chronic alcohol abuse compounded by acute dehydration. Continue NS at 100 mls/hr and monitor electrolyte. 3. Hypokalemia: potassium 3.1 today. Replete and monitor. Check Mg/Phos. 4. Elevated LFTs: trending down. Likely secondary to chronic alcohol abuse. Hep panel is pending. Continue to hold statin for now. 5. Thrombocytopenia: Chronic. Platelets 76, previously 130 on 02/01/15. No active bleeding. Hgb stable. Continue to monitor 6. Bacteria PNA/aspiration pneumonia: CXR w/ mild LLL infiltrate, continue IV Rocephin/Zithro (), DuoNeb prn. Add anaerobic coverage if worsens clinically, given risk for aspiration PNA. 7. Tobacco Abuse: Pt counselled. 8. DVT Prophylaxis: Ambulatory. SCD/Teds. 9. Hyperlipidemia: Secondary to elevated LFTs, continue to hold statin 10. Anxiety/depression: cont Wellbutrin and Prozac. Add ativan for anxiety ( only ordered as part of [facility] protocol currently). Shaheen Holman MD R3 Aug 29, 2016 07:24
[2016-08-29 08:00] VITALS: BP 97/74; PULSE 96; RESP 18; TEMP 97.5; O2SAT 94
[2016-08-29] MEDS ORDERED: POTASSIUM CHLORIDE 20 MEQ CONTROLLED RELEASE TAB PO ONE (08:00)
[2016-08-29] MEDS ORDERED: cloNIDine HCL 0.1 MG TAB PO PRN (08:30)
[2016-08-29] MEDS ORDERED: LORazepam 2 MG/ML VIAL IV PUSH PRN (08:30)
[2016-08-29] MEDS: ONDANSETRON HCL 4 MG/2 ML VIAL IVP PRN (08:44)
[2016-08-29] MEDS: SODIUM CHLORIDE 0.9% FLUSH 10 ML FLUSH IV FLUSH SCH (08:49)
[2016-08-29 08:58] LABS: PLATELET ESTIMATE SMEAR LOW (NORMAL); PLATELET MORPHOLOGY NORMAL (NORMAL); SCAN/DIFF AUTO DIFF CONFIRMED; TARGET CELLS 1+ (NORMAL)
[2016-08-29] MEDS ORDERED: FLUoxetine HCL 20 MG CAP PO SCH (09:00)
[2016-08-29] MEDS ORDERED: buPROPion HCL 75 MG TAB PO SCH (09:00)
[2016-08-29] MEDS: PANTOPRAZOLE SODIUM 40 MG VIAL IV PUSH SCH (10:05)
[2016-08-29 12:00] VITALS: BP 127/90; PULSE 99; RESP 21; TEMP 97; O2SAT 95
[2016-08-29] MEDS: SODIUM CHLOR 0.9% 1000 ML INJ 1,000 ML IV SCH (12:00)
[2016-08-29 16:00] VITALS: BP 138/97; PULSE 84; RESP 18; TEMP 97; O2SAT 96
[2016-08-29 16:13] VITALS: PULSE 87
--- NOTE | 2016-08-29 18:56 | PD.AMA ---
Against Medical Advice Note Diagnosis: (1) Sepsis (2) Pneumonia (3) Alcohol dependence Discharge Disposition: Against Medical Advice Pt Condition on Discharge: Stable AMA Statement Called by nursing at approximately 1845. Apparently patient stated she "had had enough and needed to go home". Patient Negra Osorio has decided to leave the hospital against medical advice. This patient has the capacity to refuse care and understands the risks of leaving, including permanent disability and/ or , and has had an opportunity to ask questions about her condition. The patient has been informed that she may return for care at any time, and follow up has been arranged/advised. Shaheen Holman MD R3 Aug 29, 2016 18:56
[2016-08-31] MEDS ORDERED: THIAMINE HCL 100 MG TAB PO SCH (09:00)
== END 2016-08-29 18:38 | disposition left against medical advice (07) | DRG 177 ==
LOC: NEPE 16:52 → NEDA 19:27 → N06B 21:36 → N06A 08-28 18:23
PROVIDERS: ADMIT Family Medicine; ATTEND Family Medicine
DX: J69.0 Pneumonitis due to inhalation of food and vomit (principal); A41.9 Sepsis, unspecified organism; E87.1 Hypo-osmolality and hyponatremia; D69.6 Thrombocytopenia, unspecified; E86.0 Dehydration; J15.9 Unspecified bacterial pneumonia; E87.6 Hypokalemia; R11.2 Nausea with vomiting, unspecified; R47.81 Slurred speech; Z88.8 Allergy status to other drugs, medicaments and biological substances; Z72.0 Tobacco use; Z96.652 Presence of left artificial knee joint; F31.9 Bipolar disorder, unspecified; F41.9 Anxiety disorder, unspecified; G43.909 Migraine, unspecified, not intractable, without status migrainosus; F10.129 Alcohol abuse with intoxication, unspecified; E78.5 Hyperlipidemia, unspecified
CPT/HCPCS: 70450; 71010; 80053; 80074; 80307; 81001; 82140; 82607; 82948; 83690; 83735; 84100; 84425; 84484; 85007; 85025; 85027; 85610; 93005; 96372; 96374; C9113; J0456; J0696; J2060; J2270; J2405; J2765; J3411; J3480; J7030; J7040; J7050

== ENCOUNTER 2017-10-17 19:38 | Inpatient (IN) | payer OTHER, MEDICARE ==
[~2017-10-17] VITALS: Ht 170.2 cm; Wt 86.9 kg
[~2017-10-17 19:38] MED LIST changes: -ASEN5TAB SL; -AUGM500T7 PO; +BUPR75TA PO; -BUSP5 PO; +DEXAMETHASONE SOD PHOS 4 MG/ML VIAL IV ONE; +FLUO40CA PO; +GABA600T PO; -KCL10 PO; +LACTTAB8 PO; -LEVO.125 PO; +LIDOCAINE HCL 1% PF 5 ML SYRINGE OTHER ONE; -LIOT25 PO; +LOVA40TA PO; +MOBI7.5T PO; +OLAN20TA PO; +ONDANSETRON HCL 4 MG/2 ML VIAL IV PUSH ONE; -PRED10 PO; +PROPOFOL 200 MG/20 ML AMP IV ONE; -PROT40TA PO; +ROCURONIUM INJ 50 MG/5 ML SYRINGE IV PUSH ONE; -SYMB160A INH; -TIGA300C2 PO; -TRAZ50TA4 PO; -VENL-39 PO; +ePHEDrine/NS 25 MG/5 ML SYRINGE IV ONE
[2017-10-17 19:46] VITALS: BP 108/62; PULSE 68; RESP 14; TEMP 98.2; O2SAT 99
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
[2017-10-17] MEDS ORDERED: LIDOCAINE HCL 1% PF 30 ML VIAL INFIL ONE (20:00)
[2017-10-17] MEDS ORDERED: TETANUS/DIPHTHERIA TOXOID ADULT 0.5 ML VIAL IM ONE (20:00)
[2017-10-17] MEDS ORDERED: ceFAZolin 2 GM PREMIX 50 ML IV ONE (20:00)
--- NOTE | 2017-10-17 20:15 | RADRPT ---
EXAM DATE: 10/17/2017 8:09 PM EDT AGE/SEX: 61 years / Female INDICATIONS: Laceration lateral aspect right foot, fell CLINICAL DATA: This is the patient's initial encounter. Patient reports that signs and symptoms have been present for 1 day and indicates a pain score of 0/10. MEDICAL/SURGICAL HISTORY: None. None. COMPARISON: No prior exams available for comparison. FINDINGS: Bones are osteopenic. There is a fracture proximal phalanx fifth toe which may be subacute. No other fracture identified. Moderate osteoarthritis. CONCLUSION: Fracture proximal phalanx right fifth toe. Electronically signed by: Carlito Hutton MD 10/17/2017 8:14 PM EDT
[2017-10-17] MEDS ORDERED: DEXTROSE 50% IN WATER 50 ML SYRINGE IV PUSH ONE (20:30)
[2017-10-17 20:31] LABS: AUTOMATED NEUTROPHIL # 2.1 TH/MM3 (1.8-7.7); BASOPHIL # 0.1 TH/MM3 (0-0.2); BASOPHIL % 1.2 % (0.0-2.0); EOSINOPHIL # 0.1 TH/MM3 (0-0.4); EOSINOPHIL % 1.6 % (0.0-4.0); HEMATOCRIT 39.1 % (35.0-46.0); HEMOGLOBIN 13.2 GM/DL (11.6-15.3); LYMPH % 45.1 % (9.0-44.0); LYMPHOCYTE # 2.2 TH/MM3 (1.0-4.8); MEAN CORPUSCULAR HEMOGLOBIN 34.8 PG (27.0-34.0); MEAN CORPUSCULAR HGB CONC 33.8 % (32.0-36.0); MEAN PLATELET VOLUME 7.9 FL (7.0-11.0); MONO % 9.9 % (0.0-8.0); MONOCYTE # 0.5 TH/MM3 (0-0.9); NEUT % 42.2 % (16.0-70.0); PLATELET COUNT 265 TH/MM3 (150-450); RED CELL DISTRIBUTION WIDTH 16.5 % (11.6-17.2)
[2017-10-17 20:43] LABS: ALT (GPT) 75 U/L (10-53)
--- NOTE | 2017-10-17 20:43 | PD ---
Physical Exam Date Seen by Provider: Oct 17, 2017 Narrative This patient is here for the evaluation of injury sustained in a fall. Specifically, she has injured her right fifth toe. Data Data Last Documented VS Vital Signs Date Time Temp Pulse Resp B/P (MAP) Pulse Ox O2 Delivery O2 Flow Rate FiO2 10/17/17 19:50 14 10/17/17 19:46 98.2 68 108/62 (77) 99 Orders Orders Complete Blood Count With Diff (10/17/17 19:48) Comprehensive Metabolic Panel (10/17/17 19:48) Ct Brain W/O Iv Contrast(Rout) (10/17/17 19:48) Blood Glucose (10/17/17 19:48) Ecg Monitoring (10/17/17 19:48) Iv Access Insert/Monitor (10/17/17 19:48) Alcohol (Ethanol) (10/17/17 19:48) Foot, Complete ([id number]) (10/17/17 ) Tetanus/Diphtheria Tox Adult (Tetanus/Di (10/17/17 20:00) Lidocaine Pf 1% Inj (Xylocaine-Mpf 1% In (10/17/17 20:00) Cefazolin 2 Gm Premix (Ancef 2 Gm Premix (10/17/17 20:00) NPO (10/17/17 20:23) Act Partial Throm Time (Ptt) (10/17/17 20:30) Prothrombin Time / Inr (Pt) (10/17/17 20:30) Electrocardiogram (10/17/17 ) Consult Podiatry (10/17/17 ) Dextrose 50% In Sabrina (Syr) Inj (D50w (Syr (10/17/17 20:30) (Hub Use Only)Inp Phy Cons/Ref (10/17/17 ) Labs Laboratory Tests Test 10/17/17 20:00 White Blood Count 5.0 TH/MM3 Red Blood Count 3.80 MIL/MM3 Hemoglobin 13.2 GM/DL Hematocrit 39.1 % Mean Corpuscular Volume 103.0 FL Mean Corpuscular Hemoglobin 34.8 PG Mean Corpuscular Hemoglobin Concent 33.8 % Red Cell Distribution Width 16.5 % Platelet Count 265 TH/MM3 Mean Platelet Volume 7.9 FL Neutrophils (%) (Auto) 42.2 % Lymphocytes (%) (Auto) 45.1 % Monocytes (%) (Auto) 9.9 % Eosinophils (%) (Auto) 1.6 % Basophils (%) (Auto) 1.2 % Neutrophils # (Auto) 2.1 TH/MM3 Lymphocytes # (Auto) 2.2 TH/MM3 Monocytes # (Auto) 0.5 TH/MM3 Eosinophils # (Auto) 0.1 TH/MM3 Basophils # (Auto) 0.1 TH/MM3 CBC Comment DIFF FINAL Differential Comment MDM Supervised Visit with JULES: Yes Narrative Course I, Dr. Schmid, have reviewed the advance practice practitioner's documentation and am in agreement, met with the patient face to face, made the diagnosis, and the medical decision making was done by me. *My assessment and Findings: Laceration at the base of the right fifth toe. Last Impressions Foot X-Ray 10/17/17 0000 Signed Impressions: CONCLUSION: Fracture proximal phalanx right fifth toe. This patient is being treated for an open fracture. Podiatry has been consulted. Please see Morales Pacheco PA-C's note for a more detailed H&P, final diagnosis and disposition Edwina Schmid MD Oct 17, 2017 20:43
[2017-10-17 20:45] LABS: ALKALINE PHOSPHATASE 259 U/L (45-117); TOTAL BILIRUBIN ADULT 0.7 MG/DL (0.2-1.0); TOTAL PROTEIN 6.9 GM/DL (6.4-8.2)
[2017-10-17 20:48] LABS: ALBUMIN 2.5 GM/DL (3.4-5.0); AST (GOT) 91 U/L (15-37); BICARBONATE 22.8 MEQ/L (21.0-32.0); BLOOD UREA NITROGEN 3 MG/DL (7-18); CALCIUM 8.4 MG/DL (8.5-10.1); CHLORIDE 95 MEQ/L (98-107); GLOMERULAR FILTRATION RATE 161 ML/MIN (>89); GLUCOSE,RANDOM 67 MG/DL (74-106); SODIUM (NA) 132 MEQ/L (136-145)
--- NOTE | 2017-10-17 21:17 | RADRPT ---
EXAM DATE: 10/17/2017 8:58 PM EDT AGE/SEX: 61 years / Female INDICATIONS: Trauma. Fell and hit head on bathtub. CLINICAL DATA: This is the patient's initial encounter. Patient reports that signs and symptoms have been present for 1 day and indicates a pain score of Nonresponsive. MEDICAL/SURGICAL HISTORY: Cardiovascular disease. Hypertension. Gastroesophageal reflux disease. Alcohol abuse Appendectomy. RADIATION DOSE: 35.03 CTDI (mGy) COMPARISON: [facility] [place], CT BRAIN W/O CONTRAST, 08/27/2016. . TECHNIQUE: CT of the head without contrast. Using automated exposure control and adjustment of the mA and/or kV according to patient size, radiation dose was kept as low as reasonably achievable to ob tain optimal diagnostic quality images. FINDINGS: Cerebrum: The ventricles are normal for age. No evidence of midline shift, mass lesion, hemorrhage or acute infarction. No extraaxial fluid collections are seen. Posterior Fossa: The cerebellum and brainstem are intact. The 4th ventricle is midline. The cerebe llopontine angle is unremarkable. Extracranial: The visualized portion of the orbits is intact. Skull: The calvaria is intact. No evidence of skull fracture. CONCLUSION: 1. No acute intracranial abnormalities. Electronically signed by: Carlito Hutton MD 10/17/2017 9:15 PM EDT
[2017-10-17] MEDS: SODIUM CHLOR 0.9% 1000 ML INJ 1,000 ML IV SCH (21:22)
--- NOTE | 2017-10-17 21:24 | HHI.HP ---
HPI Service [facility] Primary Care Physician Fabricio Mcgrath MD Admission Diagnosis Open toe fracture, alcohol intoxication Diagnoses: (1) Fall Diagnosis: Principal (2) Open fracture of toe of right foot Diagnosis: Principal (3) Alcohol intoxication Diagnosis: Principal (4) Elevated LFTs Diagnosis: Principal Travel History International Travel<30 Days: No Contact w/Intl Traveler <30 Da: No Traveled to Known Affected Are: No History of Present Illness This is a 60-year-old female with a PMH of Anxiety, Depression, Bipolar Disorder , HTN, Hyperlipidemia, COPD and Alcohol Abuse who is brought to the ER by EMS after a fall with apparent toe injury. Patient is acutely intoxicated. Per report patient was at a friend's house and had gone to the bathroom at which time she had a slip and fall. Reports hitting her head on bathtub. Denies LOC. Reports significant pain to right fifth toe. Pain is constant, severe, 8/ 10. On arrival, BP 108/62, HR 68, O2 sat 99% on RA, Afebrile. CBC at baseline. Chemistry essentially at baseline. LFTs elevated, improved in comparison to previous labs. Alcohol 269. Foot X-ray with fracture proximal phalanx right fifth toe. CT Head with no acute findings. Dr. Benedict consulted , plan is for surgical intervention this evening, pt will need at least 24hrs of IV Abx after surgery. Review of Systems Except as stated in HPI: all other systems reviewed are Neg ROS: 14 point review of systems otherwise negative. Past Family Social History Past Medical History PMH: Anxiety, Depression, Bipolar Disorder, HTN, Hyperlipidemia, COPD and Alcohol Abuse Past Surgical History PAST SURGICAL HISTORY: Hernia Repair, Appendectomy, Left Knee Surgery Allergies: Coded Allergies: hydroxyzine (Unverified Allergy, Severe, HALLUCINATIONS, 10/17/17) nortriptyline (Unverified Allergy, Severe, UNKNOWN, 10/17/17) buspirone (Unverified Allergy, Intermediate, UNKNOWN, 10/17/17) Family History PAST FAMILY HISTORY: Reviewed. No h/o DM or CAD Social History PAST SOCIAL HISTORY: Drinks 1 L of vodka per day. Positive for tobacco. Negative for drugs. Physical Exam Vital Signs Vital Signs Date Time Temp Pulse Resp B/P (MAP) Pulse Ox O2 Delivery O2 Flow Rate FiO2 10/17/17 19:50 14 10/17/17 19:46 98.2 68 14 108/62 (77) 99 Physical Exam PE: GENERAL: Middle-aged white female in no acute distress. Heavily intoxicated but answering questions appropriately. HEENT: PERRLA, EOMI. No scleral icterus or conjunctival pallor. No lid lag or facial droop. CARDIOVASCULAR: Regular rate and rhythm. No obvious murmurs to auscultation. No chest tenderness to palpation. RESPIRATORY: No obvious rhonchi or wheezing. Clear to auscultation. Breath sounds equal bilaterally. GASTROINTESTINAL: Abdomen soft, non-tender, nondistended. BS normal. MUSCULOSKELETAL: Extremities without clubbing, cyanosis, or edema. No obvious deformities. Right fifth toe w/ laceration, open fx. NEUROLOGICAL: Awake, alert and oriented x4. No focal neurologic deficits. Moving both upper and lower extremities spontaneously. Laboratory Laboratory Tests Test 10/17/17 20:00 White Blood Count 5.0 Red Blood Count 3.80 Hemoglobin 13.2 Hematocrit 39.1 Mean Corpuscular Volume 103.0 Mean Corpuscular Hemoglobin 34.8 Mean Corpuscular Hemoglobin Concent 33.8 Red Cell Distribution Width 16.5 Platelet Count 265 Mean Platelet Volume 7.9 Neutrophils (%) (Auto) 42.2 Lymphocytes (%) (Auto) 45.1 Monocytes (%) (Auto) 9.9 Eosinophils (%) (Auto) 1.6 Basophils (%) (Auto) 1.2 Neutrophils # (Auto) 2.1 Lymphocytes # (Auto) 2.2 Monocytes # (Auto) 0.5 Eosinophils # (Auto) 0.1 Basophils # (Auto) 0.1 CBC Comment DIFF FINAL Differential Comment Blood Urea Nitrogen 3 Creatinine 0.40 Random Glucose 67 Total Protein 6.9 Albumin 2.5 Calcium Level 8.4 Alkaline Phosphatase 259 Aspartate Amino Transf (AST/SGOT) 91 Alanine Aminotransferase (ALT/SGPT) 75 Total Bilirubin 0.7 Sodium Level 132 Potassium Level 4.4 Chloride Level 95 Carbon Dioxide Level 22.8 Anion Gap 14 Estimat Glomerular Filtration Rate 161 Ethyl Alcohol Level 269 Result Diagram: 10/17/17199910/17/171999 Caprini VTE Risk Assessment Caprini VTE Risk Assessment: No/Low Risk (score <= 1) Caprini Risk Assessment Model Point Value = 1 Point Value = 2 Point Value = 3 Point Value = 5 Age 41-60 Minor surgery BMI > 25 kg/m2 Swollen legs Varicose veins or History of unexplained or recurrent spontaneous Oral contraceptives or hormone replacement Sepsis (< 1 month) Serious lung disease, including pneumonia (< 1 month) Abnormal pulmonary function Acute myocardial infarction Congestive heart failure (< 1 month) History of inflammatory bowel disease Medical patient at bed rest Age 61-74 Arthroscopic surgery Major open surgery (> 45 min) Laparoscopic surgery (> 45 min) Malignancy Confined to bed (> 72 hours) Immobilizing plaster cast Central venous access Age >= 75 History of VTE Family history of VTE Factor V Leiden Prothrombin [id number] Lupus anticoagulant Anticardiolipin antibodies Elevated serum homocysteine Heparin-induced thrombocytopenia Other congenital or acquired thrombophilia Stroke (< 1 month) Elective arthroplasty Hip, pelvis, or leg fracture Acute spinal cord injury (< 1 month) Prophylaxis Regimen Total Risk Factor Score Risk Level Prophylaxis Regimen 0-1 Low Early ambulation 2 Moderate Order ONE of the following: *Sequential Compression Device (SCD) *Heparin 5000 units SQ BID 3-4 Higher Order ONE of the following medications: *Heparin 5000 units SQ TID *Enoxaparin/Lovenox 40 mg SQ daily (WT < 150 kg, CrCl > 30 mL/min) *Enoxaparin/Lovenox 30 mg SQ daily (WT < 150 kg, CrCl > 10-29 mL/min) *Enoxaparin/Lovenox 30 mg SQ BID (WT < 150 kg, CrCl > 30 mL/min) AND/OR *Sequential Compression Device (SCD) 5 or more Highest Order ONE of the following medications: *Heparin 5000 units SQ TID (Preferred with Epidurals) *Enoxaparin/Lovenox 40 mg SQ daily (WT < 150 kg, CrCl > 30 mL/min) *Enoxaparin/Lovenox 30 mg SQ daily (WT < 150 kg, CrCl > 10-29 mL/min) *Enoxaparin/Lovenox 30 mg SQ BID (WT < 150 kg, CrCl > 30 mL/min) AND *Sequential Compression Device (SCD) Assessment and Plan Problem List: (1) Fall ICD Code: W19.XXXA - Unspecified fall, initial encounter (2) Open fracture of toe of right foot ICD Code: S92.911B - Unspecified fracture of right toe(s), initial encounter for open fracture Status: Acute (3) Alcohol intoxication ICD Code: F10.929 - Alcohol use, unspecified with intoxication, unspecified Status: Acute (4) Elevated LFTs ICD Code: R94.5 - Abnormal results of liver function studies Status: Acute Assessment and Plan A/P: 1. Fall: secondary to intoxication, reports fall in bathroom w/ head trauma on bathtub, no LOC. CT Head w/ no acute findings, images reviewed by me. 2. Open Toe Fx: Right 5th toe, s/p fall. X-ray w/ fracture proximal phalanx right fifth toe, images reviewed by me. Dr. Benedict consulted, plan is for surgical intervention this evening w/ 24 hours of IV Abx anticipated post-op. NPO, IVF, analgesics/antiemetics as needed. 3. Alcohol Abuse: w/ Acute Alcohol Intoxication, Alcohol 269. Drinks 1L Vodka per day, high risk for withdrawal, CIWA, Seizure Precautions, MVT/Thiamine /Folate replacement. 4. Elevated LFTs: Chronic, secondary to long-standing heavy alcohol abuse, LFTs improved in comparison to previous labs, will recheck labs in am. Limit Tylenol. 5. DVT Prophylaxis: Mechanical contraindication due to toe fracture, Pharmacologic contraindication at this time due to planned surgical intervention. 6. Social work for DC planning as needed. 7. Case discussed at length with the ER physician, lab/record/imaging reviewed by me. Physician Certification 2 Midnight Certification Type: Admission for Inpatient Services Order for Inpatient Services The services are ordered in accordance with Medicare regulations or non- Medicare payer requirements, as applicable. In the case of services not specified as inpatient-only, they are appropriately provided as inpatient services in accordance with the 2-midnight benchmark. Estimated LOS (days): 2 days is the estimated time the patient will need to remain in the hospital, assuming treatment plan goals are met and no additional complications. Post-Hospital Plan: Not yet determined Emilee Stockton MD Oct 17, 2017 21:24
[2017-10-17] MEDS ORDERED: BISACODYL 10 MG SUPP RECTAL PRN (21:30)
[2017-10-17] MEDS: THIAMINE HCL 100 MG TAB PO SCH (21:30)
[2017-10-17] MEDS ORDERED: HALOPERIDOL LACTATE 5 MG/ML AMP IM PRN (21:30)
[2017-10-17] MEDS ORDERED: SENNOSIDES 8.6 MG TAB PO PRN (21:30)
[2017-10-17] MEDS ORDERED: LORazepam 2 MG TAB PO PRN (21:30)
[2017-10-17] MEDS ORDERED: LORazepam 2 MG/ML VIAL IV PUSH PRN ×4 (21:30)
[2017-10-17] MEDS ORDERED: SODIUM CHLORIDE 0.9% FLUSH 10 ML FLUSH IV FLUSH PRN (21:30)
[2017-10-17] MEDS ORDERED: LORazepam 1 MG TAB PO PRN (21:30)
[2017-10-17] MEDS ORDERED: LACTULOSE SYRUP 20 GM/30 ML CUP PO PRN (21:30)
[2017-10-17] MEDS ORDERED: MORPHINE SULFATE 4 MG/ML INJ IV PUSH PRN (21:30)
[2017-10-17] MEDS ORDERED: FLUMAZENIL 0.5 MG/5 ML VIAL IV PUSH PRN (21:30)
[2017-10-17] MEDS ORDERED: ACETAMINOPHEN 325 MG TAB PO PRN (21:30)
[2017-10-17] MEDS ORDERED: MAGNESIUM HYDROXIDE SUSP 30 ML CUP PO PRN (21:30)
[2017-10-17] MEDS ORDERED: BUPIVACAINE HCL PF 0.5% 30 ML VIAL ONE (22:16)
[2017-10-17] MEDS ORDERED: GENTAMICIN SULFATE 80 MG/2 ML VIAL ONE (22:16)
[2017-10-17 22:17] LABS: INTERNATIONAL NORMALIZED RATIO 1.1 RATIO; PROTHROMBIN TIME - PATIENT 11.6 SEC (9.8-11.6)
--- NOTE | 2017-10-17 22:19 | PD.CONS ---
History of Present Illness Service Foot and ankle surgery/podiatry Consult Requested By Reason for Consult Right fifth digit open fracture Primary Care Physician Fabricio Mcgrath MD Diagnoses: History of Present Illness Foot and ankle surgery/podiatry consulted for this 60-year-old female with past medical history of anxiety, depression, bipolar disorder, hypertension, hyperlipidemia, to the ER by EMS after a fall into bathtub and apparent COPD and alcohol abuse who was by EMS to the ER for apparent right open fracture to right fifth digit. Patient states she had her last drink of alcohol 4 hours ago. Patient states she was at a friend's house she went to the bathroom at which time she had a slip and fall, she reports hitting her head but denies any loss of consciousness. The only pain she reports is to right fifth toe. Review of Systems ROS Limitations: Intoxication Constitutional: DENIES: Fatigue, Fever Ears, nose, mouth, throat: DENIES: Vertigo Respiratory: DENIES: Shortness of breath Cardiovascular: DENIES: Chest pain, Palpitations Psychiatric: DENIES: Anxiety, Confusion Past Family Social History Allergies: Coded Allergies: hydroxyzine (Unverified Allergy, Severe, HALLUCINATIONS, 10/17/17) nortriptyline (Unverified Allergy, Severe, UNKNOWN, 10/17/17) buspirone (Unverified Allergy, Intermediate, UNKNOWN, 10/17/17) Past Medical History As per HPI Active Ordered Medications Current Medications Medications (Trade) Dose Ordered Sig/Lennox Route Start Time Stop Time Status Last Admin (Folate) 1 mg DAILY PO 10/18/17 09:00 10/23/17 08:59 (Vitamin B1) 100 mg DAILY PO 10/17/17 21:30 (Theragran M Tab) 1 tab DAILY PO 10/18/17 09:00 10/23/17 08:59 (Romazicon Inj) 0.2 mg Q1M PRN IV PUSH 10/17/17 21:30 (Ativan) 1 mg Q4H PRN PO 10/17/17 21:30 (Ativan Inj) 1 mg Q4H PRN IV PUSH 10/17/17 21:30 (Ativan) 2 mg Q2H PRN PO 10/17/17 21:30 (Ativan Inj) 2 mg Q2H PRN IV PUSH 10/17/17 21:30 (Ativan Inj) 2 mg Q1H PRN IV PUSH 10/17/17 21:30 (Ativan Inj) 2 mg Q15M PRN IV PUSH 10/17/17 21:30 (Haldol Inj) 2 mg Q15M PRN IM 10/17/17 21:30 Sodium Chloride 1,000 ml @ 100 mls/hr Q10H IV 10/17/17 21:22 (NS Flush) 2 ml UNSCH PRN IV FLUSH 10/17/17 21:30 (NS Flush) 2 ml BID IV FLUSH 10/18/17 09:00 (Tylenol) 650 mg Q6H PRN PO 10/17/17 21:30 (Morphine Inj) 2 mg Q3H PRN IV PUSH 10/17/17 21:30 (Roxicodone) 5 mg Q4H PRN PO 10/17/17 21:30 (Genny-Colace) 1 tab BID PO 10/18/17 09:00 (Milk Of Magnesia Liq) 30 ml Q12H PRN PO 10/17/17 21:30 (Senokot) 17.2 mg Q12H PRN PO 10/17/17 21:30 (Dulcolax Supp) 10 mg DAILY PRN RECTAL 10/17/17 21:30 (Lactulose Liq) 30 ml DAILY PRN PO 10/17/17 21:30 Social History Smokes 2 packs per day Physical Exam Vital Signs Vital Signs Date Time Temp Pulse Resp B/P (MAP) Pulse Ox O2 Delivery O2 Flow Rate FiO2 10/17/17 19:50 14 10/17/17 19:46 98.2 68 14 108/62 (77) 99 Physical Exam GENERAL: This is a well-nourished, well-developed patient, in no apparent distress. SKIN: Laceration noted to fifth digit HEAD: Atraumatic. EYES: Pupils equal round and reactive. ENT: Airway patent. NECK: Trachea midline. RESPIRATORY: Nonlabored breathing. MUSCULOSKELETAL:. Negative Homans sign bilaterally. NEUROLOGICAL: Awake and alert. Normal speech. Lower extremity physical exam: Vascular: Dorsalis pedis 1/4, posterior tibial nonpalpable right lower extremity. Capillary refill time within normal limits to digits 5 bilateral foot. Edema present right foot Neuro: Gross sensation intact to bilateral lower extremity. Pinpoint sensation intact. No hyperalgesia noted to bilateral lower extremity Dermatology: Normal temperature and turgor to bilateral lower extremity. Right fifth digit laceration noted with flexor tendon laceration, laceration probes deep to bone and is plantar almost circumferential around the entire right fifth digit. Active sanguinous drainage present. Musculoskeletal: Tender to palpation to right fifth digit. Laboratory Laboratory Tests Test 10/17/17 20:00 White Blood Count 5.0 Red Blood Count 3.80 Hemoglobin 13.2 Hematocrit 39.1 Mean Corpuscular Volume 103.0 Mean Corpuscular Hemoglobin 34.8 Mean Corpuscular Hemoglobin Concent 33.8 Red Cell Distribution Width 16.5 Platelet Count 265 Mean Platelet Volume 7.9 Neutrophils (%) (Auto) 42.2 Lymphocytes (%) (Auto) 45.1 Monocytes (%) (Auto) 9.9 Eosinophils (%) (Auto) 1.6 Basophils (%) (Auto) 1.2 Neutrophils # (Auto) 2.1 Lymphocytes # (Auto) 2.2 Monocytes # (Auto) 0.5 Eosinophils # (Auto) 0.1 Basophils # (Auto) 0.1 CBC Comment DIFF FINAL Differential Comment Blood Urea Nitrogen 3 Creatinine 0.40 Random Glucose 67 Total Protein 6.9 Albumin 2.5 Calcium Level 8.4 Alkaline Phosphatase 259 Aspartate Amino Transf (AST/SGOT) 91 Alanine Aminotransferase (ALT/SGPT) 75 Total Bilirubin 0.7 Sodium Level 132 Potassium Level 4.4 Chloride Level 95 Carbon Dioxide Level 22.8 Anion Gap 14 Estimat Glomerular Filtration Rate 161 Ethyl Alcohol Level 269 Result Diagram: 10/17/17199910/17/171999 Imaging Last Impressions Head CT 10/17/17 1948 Signed Impressions: CONCLUSION: 1. No acute intracranial abnormalities. Foot X-Ray 10/17/17 0000 Signed Impressions: CONCLUSION: Fracture proximal phalanx right fifth toe. Assessment and Plan Assessment and Plan 61-year-old female status post fall secondary to intoxication with right fifth digit proximal phalanx fracture Patient examined evaluated with all questions answered To OR for emergent open fracture debridement and irrigation Discussed with nursing while patient is still potentially intoxicated she runs an increased risk of infection and loss of toe if debridement and irrigation with laceration repair and fracture reduction is not performed, therefore decision is made to proceed with surgical intervention, patient states she is in agreement Patient able to consent, alert awake and oriented 3 Consent obtained Right lower extremity marked Discussed with patient she is at high risk for possible ischemic/gangrene/ losing fifth digit secondary to how many cigarettes she smokes a day Smoking cessation discussed with patient, discussed with patient smoking significantly decreases healing soft tissue and bone Will obtain ABIs prior to DC 5 doses of IV antibiotics prior to DC Patient will follow-up in office once discharged within 1 week Idalmis Benedict DPM Oct 17, 2017 22:18
--- NOTE | 2017-10-17 22:21 | HHI.PR ---
Immediate Post Op Note Procedure Date: Oct 17, 2017 Pre Op Diagnosis: Right fifth digit open proximal phalanx fracture Post Op Diagnosis: Right fifth digit open proximal phalanx fracture Surgeon: Idalmis Benedict Typesetting Machine Operator/Tender(s): None Procedure: Right fifth digit debridement and irrigation of open fracture with laceration repair Findings: None Additional Information: None Complications: None Specimen(s) removed: Wound culture 2 Estimated blood loss: Less than 5 cc Anesthesia: General Drains: None IVF Patient to: PACU Patient Condition: Good (Vital signs stable and neurovascular status intact right foot) Idalmis Benedict DPM Oct 17, 2017 22:21
[2017-10-17] MEDS ORDERED: Post-op Orders (for Pharmacy) XX ONE (22:30)
[2017-10-17] MEDS ORDERED: LIDOCAINE HCL 1% 50 ML VIAL ONE (22:45)
[2017-10-17] MEDS ORDERED: CLINDAMYCIN PHOS 600 MG/4 ML VIAL ONE (22:52)
[2017-10-17] MEDS ORDERED: SUGAMMADEX SODIUM 200 MG/2 ML VIAL IV PUSH ONE (23:09)
[2017-10-17] MEDS ORDERED: MIDAZOLAM HCL 2 MG/2 ML VIAL ONE (23:27)
[2017-10-17] MEDS ORDERED: DO NOT ADM ANY ANTICOAGULANT DRUGS PRN (23:30)
[2017-10-17] MEDS: CLINDAMYCIN INJ 600 MG in SODIUM CHLORIDE 0.9% INJ 50 ML IV SCH (23:55)
[2017-10-18] VITALS (8 sets, daily range): BP systolic 83–125; BP diastolic 56–84; PULSE 80–96; RESP 18–20; TEMP 97.2–98.1; O2SAT 93–99
--- NOTE | 2017-10-18 00:01 | MP ---
cc: Idalmis Benedict DPM DATE OF OPERATION: 10/17/2017 SURGEON: Idalmis Benedict DPM COMMODITIES REQUIREMENTS ANALYST: None. PROCEDURE PERFORMED: Right fifth, open, proximal phalanx fracture debridement and irrigation with laceration repair. PREOPERATIVE DIAGNOSIS: Right fifth proximal phalanx, open, fracture. POSTOPERATIVE DIAGNOSIS: Right fifth proximal phalanx, open, fracture. ANESTHESIA: General. ESTIMATED BLOOD LOSS: Less than 3 mL MATERIALS: 3-0 Monocryl, 3-0 Prolene. INJECTABLES: 10 mL of 1% lidocaine plain. COMPLICATIONS: None. INDICATIONS FOR PROCEDURE: The patient is a 61-year old female who was reportedly intoxicated and fell off the toilet into the tub, fracturing her fifth digit and lacerating it. The patient was brought to the ED, where she was acutely intoxicated secondary to an open fracture. The patient was brought back for emergent debridement and irrigation. The patient was able to sign consent. She is alert, awake and oriented x 3. She understands all risks procedures, alternatives and benefits and states she would like to proceed with surgical intervention. Recommended against smoking, smoking cessation with the patient will discuss all these with the patient again tomorrow. DESCRIPTION OF PROCEDURE: The patient was brought to the operating room, placed on the operating table in supine position. General anesthesia was induced. Right foot was then prepped and draped in the usual sterile fashion. Three liters of normal saline with gentamicin were then used to irrigate the right fifth digit laceration. All nonviable tissue was removed, as well as debris. Following debridement and irrigation, 3-0 Monocryl was utilized to reapproximate subcutaneous tissue, 3-0 Prolene was used to reapproximate the skin. Xeroform, 4 x 4's, cast padding and Daniele were then applied to the right foot. The patient tolerated the procedure and anesthesia well. She was transferred from the OR to PACU with vital signs stable and neurovascular status intact. YOHAN Juarez/AMOL , 11:21 PM , 11:59 PM
--- NOTE | 2017-10-18 00:36 | RADRPT ---
EXAM DATE: 10/18/2017 12:06 AM EDT AGE/SEX: 61 years / Female INDICATIONS: Post op; I&D right foot. CLINICAL DATA: This is the patient's subsequent encounter. Patient reports that signs and symptoms h ave been present for 1 day and indicates a pain score of Nonresponsive. MEDICAL/SURGICAL HISTORY: Non-responsive. Non-responsive. COMPARISON: [facility] [place] RIGHT COMPLETE ([id number]), 10/17/2017. . FINDINGS: 3 views of the right foot. Fifth toe proximal phalanx fracture again seen. No significant interval ch loi. No new bone erosion. No new fracture. CONCLUSION: 1. Fifth toe proximal phalanx fracture again seen. 2. No significant interval change. Electronically signed by: Eduard Faye MD 10/18/2017 12:35 AM EDT
[2017-10-18] MEDS: ceFAZolin 2 GM PREMIX 50 ML IV SCH ×3 (03:56→21:39)
[2017-10-18] MEDS ORDERED: ONDANSETRON ODT 4 MG TAB SL PRN (04:45)
--- NOTE | 2017-10-18 08:32 | HHI.PR ---
Subjective Remarks Right foot pain is well controlled, severe nausea with vomiting which patient states is normal. Objective Vital Signs Date Time Temp Pulse Resp B/P (MAP) Pulse Ox O2 Delivery O2 Flow Rate FiO2 10/18/17 04:00 98.1 86 18 119/64 (82) 98 10/18/17 00:30 97.2 80 18 100/68 (79) 99 10/18/17 00:00 97.2 80 18 100/63 (75) 99 10/17/17 23:45 97.4 83 15 108/71 (83) 99 Nasal Cannula 3 10/17/17 23:30 108 15 101/70 (80) 94 Nasal Cannula 3 10/17/17 23:23 97.4 85 15 106/69 (81) 93 Nasal Cannula 3 10/17/17 19:50 14 10/17/17 19:46 98.2 68 14 108/62 (77) 99 I/O 10/17/17 10/17/17 10/17/17 10/18/17 10/18/17 10/18/17 07:00 15:00 23:00 07:00 15:00 23:00 Intake Total 50 ml 850 ml Output Total 3 ml Balance 50 ml 847 ml Intake IV Total 50 ml 850 ml Output Estimated Blood Loss 3 ml # Voids 6 Result Diagram: 10/17/17199910/17/171999 Procedures SP right 5th digit repair of laceration, I and D Objective Remarks A and O x3 NAD non labored respirations. Right foot bandage clean dry and intact. toes are pink. Medications and IVs Administered Medications Medications (Trade) Dose Ordered Sig/Lennox Route PRN Reason Start Time Stop Time Status Last Admin Dose Admin Sodium Chloride 1,000 ml @ 100 mls/hr Q10H IV 10/17/17 21:22 10/17/17 21:22 Oxycodone HCl (Roxicodone) 5 mg Q4H PRN PO PAIN SCALE 3 TO 5 10/17/17 21:30 10/18/17 00:56 Cefazolin Sodium/ Dextrose 50 ml @ 100 mls/hr Q8H IV 10/18/17 04:00 10/18/17 03:56 Clindamycin Phosphate 600 mg/ Sodium Chloride 54 ml @ 108 mls/hr Q8H IV 10/18/17 00:00 10/17/17 23:55 Ondansetron HCl (Zofran Odt) 4 mg Q6H PRN SL NAUSEA OR VOMITING 10/18/17 04:45 10/18/17 04:51 Assessment and Plan Assessment and Plan Right 5th digit open fracture laceration SP repair above per Dr Benedict. Heavy smoker, OLGA's ordered recommend 1-2 days of IV ABX, will assess wound tomorrow, ok for out of bed to chair. Mynor Caballero DPM Oct 18, 2017 08:32
[2017-10-18] MEDS: SODIUM CHLORIDE 0.9% FLUSH 10 ML FLUSH IV FLUSH SCH ×2 (09:00→21:39)
[2017-10-18] MEDS: THIAMINE HCL 100 MG TAB PO SCH (09:04)
[2017-10-18] MEDS: FOLIC ACID 1 MG TAB PO SCH (09:04)
[2017-10-18] MEDS: DOCUSATE SODIUM 50 MG/SENNA 8.6 MG TAB PO SCH ×2 (09:04→21:37)
[2017-10-18] MEDS: MULTIVITAMINS/MINERALS THERAPEUTIC TAB PO SCH (09:04)
[2017-10-18] MEDS: CLINDAMYCIN INJ 600 MG in SODIUM CHLORIDE 0.9% INJ 50 ML IV SCH ×2 (09:07→16:43)
[2017-10-18 10:52] LABS: AUTOMATED NEUTROPHIL # 5.5 TH/MM3 (1.8-7.7); BASOPHIL % 0.4 % (0.0-2.0); HEMATOCRIT 36.5 % (35.0-46.0); HEMOGLOBIN 12.5 GM/DL (11.6-15.3); LYMPH % 12.6 % (9.0-44.0); LYMPHOCYTE # 0.9 TH/MM3 (1.0-4.8); MEAN CELL VOLUME 103.8 FL (80.0-100.0); MEAN CORPUSCULAR HEMOGLOBIN 35.4 PG (27.0-34.0); MEAN CORPUSCULAR HGB CONC 34.1 % (32.0-36.0); MEAN PLATELET VOLUME 8.2 FL (7.0-11.0); MONO % 6.3 % (0.0-8.0); MONOCYTE # 0.4 TH/MM3 (0-0.9); NEUT % 80.7 % (16.0-70.0); PLATELET COUNT 253 TH/MM3 (150-450); RED BLOOD COUNT 3.52 MIL/MM3 (4.00-5.30); RED CELL DISTRIBUTION WIDTH 16.9 % (11.6-17.2); WHITE BLOOD COUNT 6.8 TH/MM3 (4.0-11.0)
--- NOTE | 2017-10-18 10:58 | HHI.PR ---
Subjective Remarks Patient complains some nausea. She also wants her bipolar medication restarted. She wants some Xanax for anxiety. Overall her pain is controlled adequately. Objective Vitals Vital Signs Date Time Temp Pulse Resp B/P (MAP) Pulse Ox O2 Delivery O2 Flow Rate FiO2 10/18/17 08:00 97.4 93 19 121/84 (96) 97 10/18/17 04:00 98.1 86 18 119/64 (82) 98 10/18/17 00:30 97.2 80 18 100/68 (79) 99 10/18/17 00:00 97.2 80 18 100/63 (75) 99 10/17/17 23:45 97.4 83 15 108/71 (83) 99 Nasal Cannula 3 10/17/17 23:30 108 15 101/70 (80) 94 Nasal Cannula 3 10/17/17 23:23 97.4 85 15 106/69 (81) 93 Nasal Cannula 3 10/17/17 19:50 14 10/17/17 19:46 98.2 68 14 108/62 (77) 99 I/O 10/17/17 10/17/17 10/17/17 10/18/17 10/18/17 10/18/17 07:00 15:00 23:00 07:00 15:00 23:00 Intake Total 50 ml 850 ml Output Total 3 ml Balance 50 ml 847 ml Intake IV Total 50 ml 850 ml Output Estimated Blood Loss 3 ml # Voids 6 Result Diagram: 10/17/17199910/17/171999 Objective Remarks GENERAL: This is a well-nourished, well-developed patient, in no apparent distress. CARDIOVASCULAR: Regular rate and rhythm. RESPIRATORY: Clear to auscultation. Breath sounds equal bilaterally. No wheezes , rales, or rhonchi. MUSCULOSKELETAL: Right foot bandage clean dry intact NEURO: Alert & Oriented x4 to person, place, time, situation. Moves all ext x4 A/P Problem List: (1) Fall ICD Code: W19.XXXA - Unspecified fall, initial encounter Status: Acute (2) Open fracture of toe of right foot ICD Code: S92.911B - Unspecified fracture of right toe(s), initial encounter for open fracture Status: Acute (3) Alcohol intoxication ICD Code: F10.929 - Alcohol use, unspecified with intoxication, unspecified Status: Acute (4) Elevated LFTs ICD Code: R94.5 - Abnormal results of liver function studies Status: Acute Assessment and Plan 1. Fall: secondary to intoxication, reports fall in bathroom w/ head trauma on bathtub, no LOC. -Neurologically has been stable 2. Open Toe Fx: Right proximal 5th toe, s/p fall. Status post operative day # 1 ORIFcontinue postoperative care, pain control per podiatry. Patient will need IV antibiotics for a total of 5 doses and continued p.o. antibiotics for 10 more days upon discharge to home with outpatient follow-up with podiatry 3. Alcohol Abuse: w/ Acute Alcohol Intoxication, Alcohol 269. Drinks 1L Vodka per day, high risk for withdrawal, [facility] protocol 5. Pro-, Seizure Precautions, MVT/Thiamine/Folate replacement. 4. Elevated LFTs: Chronic, secondary to long-standing heavy alcohol abuse, LFTs improved in comparison to previous labs, will recheck labs in am. Limit Tylenol. 5. bipolar disorder continue home medication Prozac and Zyprexa 6. DVT Prophylaxis: SCDs Discharge Planning Possible discharge to home in the morning. Problem Qualifiers (1) Fall: Qualified Codes: W19.XXXA - Unspecified fall, initial encounter (2) Open fracture of toe of right foot: Qualified Codes: S92.414B - Nondisplaced fracture of proximal phalanx of right great toe, initial encounter for open fracture Melanie Padgett MD Oct 18, 2017 10:58
[2017-10-18 11:04] LABS: ALBUMIN 2.4 GM/DL (3.4-5.0); ALT (GPT) 65 U/L (10-53); AST (GOT) 75 U/L (15-37); BICARBONATE 25.3 MEQ/L (21.0-32.0); BLOOD UREA NITROGEN 4 MG/DL (7-18); CALCIUM 7.8 MG/DL (8.5-10.1); CHLORIDE 99 MEQ/L (98-107); CREATININE 0.45 MG/DL (0.50-1.00); GLOMERULAR FILTRATION RATE 141 ML/MIN (>89); GLUCOSE,RANDOM 106 MG/DL (74-106); SODIUM (NA) 136 MEQ/L (136-145)
[2017-10-18 11:06] LABS: ALKALINE PHOSPHATASE 235 U/L (45-117); TOTAL BILIRUBIN ADULT 0.7 MG/DL (0.2-1.0); TOTAL PROTEIN 6.6 GM/DL (6.4-8.2)
[2017-10-18] MEDS: METOCLOPRAMIDE HCL 10 MG/2 ML VIAL IV PUSH PRN (11:46)
[2017-10-18] MEDS: GABAPENTIN 300 MG CAP PO SCH ×2 (11:46→18:00)
--- NOTE | 2017-10-18 12:29 | RADRPT ---
EXAM DATE: 10/18/2017 12:15 PM EDT AGE/SEX: 61 years / Female INDICATIONS: Open toe fracture CLINICAL DATA: This is the patient's initial encounter. Patient reports that signs and symptoms have been present for 2 days and indicates a pain score of 10/10. MEDICAL/SURGICAL HISTORY: . Anxiety, depression, bipolar disorder, hypertension, hyperlipidemia , COPD, alcohol abuse . Hernia repair, appendectomy, left knee surgery, I & D fractured fifth digit distal phalanax COMPARISON: No prior exams available for comparison. TECHNIQUE: Four-cuff ankle and brachial pressures were obtained. Pulse cuff waveform tracings of the ankles were recorded, and ankle-brachial indices were calculated. PRESSURES (mmHg): Brachial (arm) : RIGHT: IV SITE, LEFT: 100 Ankle : RIGHT: 94, LEFT: 78 OLGA : RIGHT: 0.94, LEFT: 0.78 TBI : RIGHT: 1.13, LEFT: .064 CONCLUSION: 1. There is moderate vascular occlusive disease on the left and further characterization with CT ang iography and runoff is recommended. Electronically signed by: Kati Barba MD 10/18/2017 12:27 PM EDT
--- NOTE | 2017-10-18 14:44 | EKG ---
Date Performed: 10/17/2017 Time Performed: 21:35:54 PTAGE: 61 years EKG: Sinus rhythm BORDERLINE LEFT AXIS DEVIATION BORDERLINE ECG Since the PREVIOUS TRACING , no significant change noted PREVIOUS TRACIN08/27/2016 19.19 DOCTOR: Kvng Horton Interpretating Date/Time 10/18/2017 14:42:31
[2017-10-18] MEDS: SODIUM CHLOR 0.9% 1000 ML INJ 1,000 ML IV SCH (17:22)
[2017-10-18] MEDS: ALPRAZolam 0.5 MG TAB PO SCH (21:00)
[2017-10-18] MEDS: OLANZapine 10 MG TAB PO SCH (21:37)
[2017-10-19] VITALS (8 sets, daily range): BP systolic 91–142; BP diastolic 63–93; PULSE 70–101; RESP 18–20; TEMP 97.5–99.2; O2SAT 92–98
[2017-10-19] MEDS: CLINDAMYCIN INJ 600 MG in SODIUM CHLORIDE 0.9% INJ 50 ML IV SCH ×3 (00:55→15:26)
[2017-10-19] MEDS: ceFAZolin 2 GM PREMIX 50 ML IV SCH ×3 (03:04→22:08)
[2017-10-19] MEDS: SODIUM CHLOR 0.9% 1000 ML INJ 1,000 ML IV SCH ×3 (03:22→23:48)
[2017-10-19] MEDS ORDERED: THIA100 PO (07:54)
[2017-10-19] MEDS ORDERED: THERM PO (07:54)
[2017-10-19] MEDS ORDERED: FOLI1TAB6 PO (07:54)
--- NOTE | 2017-10-19 07:55 | HHI.DCPOC ---
Discharge Care Plan Diagnosis: (1) Elevated LFTs (2) Open fracture of toe of right foot Your Health Problems Are: Anxiety Difficulty with ADL Inflammation Goals to Promote Your Health * To prevent worsening of your condition and complications * To maintain your health at the optimal level Directions to Meet Your Goals Take your medications as prescribed Follow your dietary instruction Follow activity as directed Keep your appointments as scheduled Take your immunizations and boosters as scheduled If your symptoms worsen call your PCP, if no PCP go to Urgent Care Center or Emergency Room Smoking is Dangerous to Your Health. Avoid second hand smoke Call the 24-hour hour crisis hotline for domestic abuse at Ming Anand Oct 19, 2017 07:55
[2017-10-19] MEDS: LACTOBACILLUS ACIDOPHILUS TAB PO SCH (08:11)
[2017-10-19] MEDS: FLUoxetine HCL 20 MG CAP PO SCH (08:11)
[2017-10-19] MEDS: PRAVASTATIN SOD 40 MG TAB PO SCH (08:11)
[2017-10-19] MEDS: DOCUSATE SODIUM 50 MG/SENNA 8.6 MG TAB PO SCH ×2 (08:11→21:00)
[2017-10-19] MEDS: MULTIVITAMINS/MINERALS THERAPEUTIC TAB PO SCH (08:11)
[2017-10-19] MEDS: GABAPENTIN 300 MG CAP PO SCH ×3 (08:11→18:27)
[2017-10-19] MEDS: THIAMINE HCL 100 MG TAB PO SCH (08:11)
[2017-10-19] MEDS: ALPRAZolam 0.5 MG TAB PO SCH (08:11)
[2017-10-19] MEDS: FOLIC ACID 1 MG TAB PO SCH (08:11)
[2017-10-19] MEDS: SODIUM CHLORIDE 0.9% FLUSH 10 ML FLUSH IV FLUSH SCH ×2 (08:12→21:00)
--- NOTE | 2017-10-19 08:48 | HHI.PR ---
Subjective Remarks Follow-up visit status post right fifth toe, open, proximal phalanx fracture debridement and irrigation with laceration repair, EtOH, transaminitis. Patient seen and examined today. States that she has right knee, leg pain, 10/ 10, sharp, nagging, unrelieved by pain medication, aggravated by movement. Patient states that the medications Roxicodone is not working. Discussed with patient her EtOH use, pain medication, elevated liver enzymes, and pain medication use. Verbalized understanding. We will get patient on baclofen for the meantime. Patient states that she wanted to go home but she has steps to go up her apartment. She does not know if she wants to go to rehab facility. Otherwise, denies SOB/ dyspnea. Denies chest pain, palpitations, headaches, dizziness. Denies fevers, chills, n/v/d. Denies dysuria. Objective Vitals Vital Signs Date Time Temp Pulse Resp B/P (MAP) Pulse Ox O2 Delivery O2 Flow Rate FiO2 10/19/17 08:12 97.6 96 18 134/91 (105) 98 10/19/17 04:00 97.5 77 18 106/63 (77) 95 10/19/17 00:00 98.0 71 18 91/63 (72) 95 10/18/17 20:00 97.8 86 20 83/56 (65) 95 10/18/17 16:00 98.0 96 18 93/58 (70) 93 10/18/17 14:18 97 21 10/18/17 12:00 97.5 95 18 125/82 (96) 98 I/O 10/18/17 10/18/17 10/18/17 10/19/17 10/19/17 10/19/17 07:00 15:00 23:00 07:00 15:00 23:00 Intake Total 850 ml 240 ml Output Total 3 ml Balance 847 ml 240 ml Intake Oral 240 ml IV Total 850 ml Output Estimated Blood Loss 3 ml # Voids 6 4 2 # Bowel Movements 1 0 Result Diagram: 10/18/1720 10/18/1720 Imaging Last Impressions Extremity Arterial Study 10/18/17 0000 Signed Impressions: CONCLUSION: 1. There is moderate vascular occlusive disease on the left and further charac terization with CT angiography and runoff is recommended. Head CT 6/10/18 1948 Signed Impressions: CONCLUSION: 1. No acute intracranial abnormalities. Foot X-Ray 10/17/17 0000 Signed Impressions: CONCLUSION: 1. Fifth toe proximal phalanx fracture again seen. 2. No significant interval change. Objective Remarks GENERAL: This is a well-nourished, well-developed patient, in no apparent distress. SKIN: Warm and dry. HEENT: Normocephalic. Pupils equal round and reactive. Nose without bleeding. Airway patent. NECK: Trachea midline. CARDIOVASCULAR: Regular rate and rhythm without murmurs, gallops, or rubs. RESPIRATORY: Clear to auscultation. Breath sounds equal bilaterally. No wheezes , rales, or rhonchi. GASTROINTESTINAL: Abdomen soft, non-tender, nondistended. Bowel Sounds normoactive x4. MUSCULOSKELETAL: Extremities without clubbing, cyanosis. Bilateral lower extremity edema, Rt knee edema +2, Rt Foot dsg CDI NEUROLOGICAL: Awake and alert. Oriented to place, person. No focal neuro deficit. Moves all extremities. Normal speech. Procedures status post right fifth toe, open, proximal phalanx fracture debridement and irrigation with laceration repair A/P Problem List: (1) Fall ICD Code: W19.XXXA - Unspecified fall, initial encounter Status: Acute (2) Open fracture of toe of right foot ICD Code: S92.911B - Unspecified fracture of right toe(s), initial encounter for open fracture Status: Acute (3) Alcohol intoxication ICD Code: F10.929 - Alcohol use, unspecified with intoxication, unspecified Status: Acute (4) Elevated LFTs ICD Code: R94.5 - Abnormal results of liver function studies Status: Acute Assessment and Plan 60-year-old female with a PMH of Anxiety, Depression, Bipolar Disorder, HTN, Hyperlipidemia, COPD and Alcohol Abuse who is brought to the ER by EMS after a fall with apparent toe injury Status post fall Open toe fracture Status post right proximal fifth toe ORIF, I&D and repair of the laceration by Dr. Benedict -Pain medication oxycodone, will provide baclofen, will increase oxycodone 10 mg every 6 hours -Physical therapy to eval and treat -May benefit with home health PT, nursing Right knee pain -Xray ordered, f/u result Alcohol abuse, acute alcohol intoxication Elevated LFTs -Patient is counseled on alcohol use. Patient states she lives in a not so good environment, naming it as "ghetto" that is why she drinks. -Continue CIWA Protocol -Start Librium 10 mg 3 times daily , september DC x3 days -Trend LFTs Bipolar disorder -Continue Prozac, Zyprexa DVT prop SCDs Discharge Planning Plan to DC home after physical therapy evaluation and cleared by podiatry. Problem Qualifiers (1) Fall: Qualified Codes: W19.XXXA - Unspecified fall, initial encounter (2) Open fracture of toe of right foot: Qualified Codes: S92.414B - Nondisplaced fracture of proximal phalanx of right great toe, initial encounter for open fracture iMng Anand Oct 19, 2017 08:48
--- NOTE | 2017-10-19 09:11 | HHI.FF ---
Face to Face Verification Diagnosis: (1) Fall (2) Elevated LFTs (3) Open fracture of toe of right foot (4) Alcohol intoxication (5) Alcohol abuse Physical Therapy Order: Evaluate and Treat Home Health Nursing Order: Medical education Signs/symptoms of disease process Medication education-adverse effect Wound care and dressing changes Nursing assessment with vital signs I have seen patient Negra Osorio on 10/19/17. My clinical findings support the need for the requested home health care services because: Med compliance is questionable Limited ability to care for self Impaired cognition/judgement High risk of falls Infection w/ risk of complications I certify that my clinical findings support that this patient is homebound because: Impaired cognitive ability/safety Unsteady gait/balance Ming Anand Oct 19, 2017 09:11
[2017-10-19] MEDS: BACLOFEN 10 MG TAB PO SCH ×3 (09:36→22:09)
--- NOTE | 2017-10-19 16:49 | RADRPT ---
EXAM DATE: 10/19/2017 2:38 PM EDT AGE/SEX: 61 years / Female INDICATIONS: Evaluate pain in right knee. Fall three days ago. CLINICAL DATA: This is the patient's subsequent encounter. Patient reports that signs and symptoms h ave been present for 3 days and indicates a pain score of 9/10. MEDICAL/SURGICAL HISTORY: None. Total knee replacement, left. COMPARISON: No prior exams available for comparison. FINDINGS: The examination demonstrates severe tricompartmental osteoarthritis with a large joint effusion. Ther e is calcification within the meniscus suggesting CPPD. No acute fracture is seen. No destructive les ion is identified. CONCLUSION: Severe tricompartmental osteoarthritis with a large joint effusion. No definite acute fracture identi fied. Electronically signed by: Eddie Lopez MD 10/19/2017 4:48 PM EDT
--- NOTE | 2017-10-19 17:09 | HHI.PR ---
Subjective Remarks Right foot pain is well controlled, mainly having knee pain Objective Vital Signs Date Time Temp Pulse Resp B/P (MAP) Pulse Ox O2 Delivery O2 Flow Rate FiO2 10/19/17 16:44 18 10/19/17 16:27 97.5 82 18 142/93 (109) 95 10/19/17 12:05 98.5 70 19 136/90 (105) 97 10/19/17 08:48 96 21 10/19/17 08:12 97.6 96 18 134/91 (105) 98 10/19/17 04:00 97.5 77 18 106/63 (77) 95 10/19/17 00:00 98.0 71 18 91/63 (72) 95 10/18/17 20:00 97.8 86 20 83/56 (65) 95 I/O 10/18/17 10/18/17 10/18/17 10/19/17 10/19/17 10/19/17 07:00 15:00 23:00 07:00 15:00 23:00 Intake Total 850 ml 240 ml Output Total 3 ml Balance 847 ml 240 ml Intake Oral 240 ml IV Total 850 ml Output Estimated Blood Loss 3 ml # Voids 6 4 2 # Bowel Movements 1 0 Result Diagram: 10/18/1720 10/18/17 0920 Imaging Last 72 hours Impressions Knee X-Ray 10/19/17 Signed Impressions: CONCLUSION: Severe tricompartmental osteoarthritis with a large joint effusion. No definite acute fracture identified. Extremity Arterial Study 10/18/17 Signed Impressions: CONCLUSION: 1. There is moderate vascular occlusive disease on the left and further charac terization with CT angiography and runoff is recommended. Head CT 10/17/171947 Signed Impressions: CONCLUSION: 1. No acute intracranial abnormalities. Foot X-Ray 10/17/17 Signed Impressions: CONCLUSION: 1. Fifth toe proximal phalanx fracture again seen. 2. No significant interval change. Foot X-Ray 10/17/17 Signed Impressions: CONCLUSION: Fracture proximal phalanx right fifth toe. Procedures SP right 5th digit repair of laceration, I and D Objective Remarks A and O x3 NAD non labored respirations. Right foot laceration with sutures intact 5th digit no ischemic changes Foot is warm sensation intact, pulses are palpable Assessment and Plan Assessment and Plan Right 5th digit open fracture laceration SP repair above per Dr Benedict. ABIs appear adequate for healing right, ok to DC to SNF, Bandage changed Fu 7- [address] Benedict, Woundcare every 3 days, Xeroform jarocho and derek wrap, must walk with post op shoe to prevent reinjury. Mynor Caballero DPM Oct 19, 2017 17:09
[2017-10-19] MEDS: OLANZapine 10 MG TAB PO SCH (21:00)
[2017-10-19] MEDS: RESP: ALBUTEROL 2.5 MG/IPRATROPIUM 0.5 MG NEB (PRN) NEB (22:15)
--- NOTE | 2017-10-19 22:42 | RADRPT ---
EXAM DATE: 10/19/2017 10:18 PM EDT AGE/SEX: 61 years / Female INDICATIONS: Short of breath. CLINICAL DATA: This is the patient's initial encounter. Patient reports that signs and symptoms have been present for 1 day and indicates a pain score of 0/10. MEDICAL/SURGICAL HISTORY: None. None. COMPARISON: [facility] [place], [place]. . FINDINGS: Abnormal soft tissue left lateral chest. Right lung clear. Heart minimally enlarged. No pneumothorax. No pleural effusion. CONCLUSION: Abnormal soft tissue mass left chest. CT scan would be of benefit. Electronically signed by: Lamont Lopez MD 10/19/2017 10:40 PM EDT
[2017-10-19 22:54] LABS: AUTOMATED NEUTROPHIL # 5.6 TH/MM3 (1.8-7.7); BASOPHIL % 0.2 % (0.0-2.0); EOSINOPHIL % 0.4 % (0.0-4.0); HEMATOCRIT 34.1 % (35.0-46.0); HEMOGLOBIN 11.7 GM/DL (11.6-15.3); LYMPH % 14.3 % (9.0-44.0); MEAN CORPUSCULAR HEMOGLOBIN 36.2 PG (27.0-34.0); MEAN CORPUSCULAR HGB CONC 34.5 % (32.0-36.0); MEAN PLATELET VOLUME 8.1 FL (7.0-11.0); MONO % 7.8 % (0.0-8.0); MONOCYTE # 0.6 TH/MM3 (0-0.9); NEUT % 77.3 % (16.0-70.0); PLATELET COUNT 186 TH/MM3 (150-450); RED BLOOD COUNT 3.24 MIL/MM3 (4.00-5.30); RED CELL DISTRIBUTION WIDTH 16.2 % (11.6-17.2); WHITE BLOOD COUNT 7.3 TH/MM3 (4.0-11.0)
[2017-10-19 22:55] LABS: BICARBONATE 25.6 MEQ/L (21.0-32.0); CALCIUM 7.1 MG/DL (8.5-10.1); CREATININE 0.63 MG/DL (0.50-1.00)
[2017-10-19 23:05] LABS: CALCIUM-PROTEIN CORRECTED 7.8 MG/DL (8.5-10.1); TOTAL BILIRUBIN ADULT 0.7 MG/DL (0.2-1.0); TOTAL PROTEIN 5.8 GM/DL (6.4-8.2)
[2017-10-19] MEDS ORDERED: POTASSIUM CHLORIDE 10 MEQ CONTROLLED RELEASE TAB PO ONE (23:15)
[2017-10-20] VITALS (9 sets, daily range): BP systolic 108–135; BP diastolic 66–83; PULSE 85–111; RESP 17–24; TEMP 97.4–98.9; O2SAT 92–99
[2017-10-20] MEDS ORDERED: IOHEXOL 350 MG/ML 10 ML VIAL (for RAD DIAG) IVCONTRAST ONE (00:33)
--- NOTE | 2017-10-20 00:48 | RADRPT ---
EXAM DATE: 10/20/2017 12:38 AM EDT AGE/SEX: 61 years / Female INDICATIONS: Short of breath. CLINICAL DATA: This is the patient's initial encounter. Patient reports that signs and symptoms have been present for 1 day and indicates a pain score of 5/10. MEDICAL/SURGICAL HISTORY: Hypertension. Chronic obstructive pulmonary disease. ETOH None. RADIATION DOSE: 8.6 CTDI (mGy) COMPARISON: No prior exams available for comparison. TECHNIQUE: Volumetric scanning was performed using a multi-row detector CT scanner during bolus infu nena of 75 ml Omnipaque 350 (iohexol) nonionic water-soluble contrast as a single exam dose. The milo a was post processed with a variety of visualization algorithms including full volume maximum intensi ty projection and sliding thin slab reformation. Using automated exposure control and adjustment of the mA and/or kV according to patient size, radiation dose was kept as low as reasonably achievable t o obtain optimal diagnostic quality images. FINDINGS: Pulmonary Arteries: No filling defects are seen in the pulmonary arteries out to the subsegmental ve ssels. The left and right pulmonary arteries are normal in diameter. Lung: Areas of patchy mixed groundglass opacity and consolidation seen in the left upper lobe and po sterior right lower lobe. Opacity at the dependent portions of the lower lobes indicating atelectasis . Small bilateral pleural effusions. Bronchiectasis noted in the right lower lobe. Effusion: None. Mediastinum: Moderate sized hiatal hernia. Nonspecific mild diffuse esophageal wall thickening. No e nlarged lymph nodes. Coronary artery calcification noted. Other: The axilla is unremarkable. Hepatic steatosis. Multiple old left-sided rib fractures. CONCLUSION: 1. No evidence of pulmonary embolus. 2. Patchy mixed groundglass opacity and consolidation in the lungs bilaterally may represent infecti on or asymmetric edema. 3. Small bilateral pleural effusions. 4. Coronary artery calcifications. 5. Moderate-sized hiatal hernia nonspecific mild diffuse esophageal wall thickening. Electronically signed by: Eduard Faye MD 10/20/2017 12:47 AM EDT
[2017-10-20] MEDS: CLINDAMYCIN INJ 600 MG in SODIUM CHLORIDE 0.9% INJ 50 ML IV SCH ×2 (01:36→09:33)
[2017-10-20] MEDS: AZITHROMYCIN INJ 500 MG in SODIUM CHLOR 0.9% 250 ML INJ 250 ML IV SCH (02:15)
[2017-10-20] MEDS: RESP: ALBUTEROL 2.5 MG/IPRATROPIUM 0.5 MG NEB (SCH) NEB ×4 (03:08→22:18)
[2017-10-20] MEDS: PIPERACIL-TAZO 4.5 GM PREMIX 100 ML IV SCH ×4 (03:44→20:18)
[2017-10-20] MEDS: ceFAZolin 2 GM PREMIX 50 ML IV SCH (04:24)
[2017-10-20] MEDS: BACLOFEN 10 MG TAB PO SCH ×3 (06:00→20:20)
--- NOTE | 2017-10-20 07:08 | PD.OP ---
Operative Report Date of Surgery: Oct 20, 2017 Preoperative Diagnosis: (1) Arthritis of knee, right Postoperative Diagnosis: Procedure: Needle aspiration of right knee Surgeon: Leeroy Cuevas Senior Controls Technician(s): None Operation and Findings: The right knee was sterilely prepped with alcohol and Betadine. The lateral border of the patella was palpated into the lateral joint line was found. A 20- gauge spinal needle was used to aspirate the right knee. Approximately 60 cc of bloody serous fluid was drained from the right knee. The area was then cleaned with alcohol and sterilely draped with a Primapore dressing Leeroy Cuevas/First Sadie TEAGUE Oct 20, 2017 07:08
[2017-10-20 08:43] LABS: WBC, SYNOVIAL FLUID 23000 /MM3 (0-200)
[2017-10-20] MEDS: GABAPENTIN 300 MG CAP PO SCH ×3 (09:19→18:34)
[2017-10-20] MEDS: FLUoxetine HCL 20 MG CAP PO SCH (09:19)
[2017-10-20] MEDS: FOLIC ACID 1 MG TAB PO SCH (09:19)
[2017-10-20] MEDS: LACTOBACILLUS ACIDOPHILUS TAB PO SCH (09:19)
[2017-10-20] MEDS: DOCUSATE SODIUM 50 MG/SENNA 8.6 MG TAB PO SCH ×2 (09:19→20:18)
[2017-10-20] MEDS: THIAMINE HCL 100 MG TAB PO SCH (09:19)
[2017-10-20] MEDS: PRAVASTATIN SOD 40 MG TAB PO SCH (09:28)
[2017-10-20] MEDS: MULTIVITAMINS/MINERALS THERAPEUTIC TAB PO SCH (09:28)
[2017-10-20] MEDS: SODIUM CHLORIDE 0.9% FLUSH 10 ML FLUSH IV FLUSH SCH ×2 (09:34→20:17)
[2017-10-20] MEDS: SODIUM CHLOR 0.9% 1000 ML INJ 1,000 ML IV SCH ×2 (09:35→19:22)
--- NOTE | 2017-10-20 09:50 | HHI.PR ---
Subjective Remarks Follow-up visit status post right fifth toe, open, proximal phalanx fracture debridement and irrigation with laceration repair, EtOH, transaminitis, right knee joint effusion. Patient seen and examined today. Reports right knee is slightly better. States that they took out a lot of fluid in it. Pain is manageable. Reports increasing cough, denies SOB/ dyspnea. Denies chest pain, palpitations, headaches, dizziness. Denies fevers, chills, n/v/d. Denies dysuria. Objective Vitals Vital Signs Date Time Temp Pulse Resp B/P (MAP) Pulse Ox O2 Delivery O2 Flow Rate FiO2 10/20/17 08:27 98.3 91 19 108/76 (87) 94 10/20/17 04:00 98.1 111 24 114/70 (85) 99 10/20/17 03:12 93 Nasal Cannula 4.00 10/20/17 00:00 98.2 98 22 112/70 (84) 98 10/19/17 22:22 94 Nasal Cannula 4.00 10/19/17 20:00 99.2 101 20 111/73 (86) 92 10/19/17 16:44 18 10/19/17 16:27 97.5 82 18 142/93 (109) 95 10/19/17 12:05 98.5 70 19 136/90 (105) 97 I/O 10/19/17 10/19/17 10/19/17 10/20/17 10/20/17 10/20/17 07:00 15:00 23:00 07:00 15:00 23:00 Intake Total 240 ml 750 ml 120 ml Balance 240 ml 750 ml 120 ml Intake Oral 240 ml 750 ml 120 ml # Voids 2 3 4 # Bowel Movements 0 0 0 Result Diagram: 10/19/17222510/19/[address] Angiography 10/20/17 0000 Signed Impressions: CONCLUSION: 1. No evidence of pulmonary embolus. 2. Patchy mixed groundglass opacity and consolidation in the lungs bilaterally may represent infection or asymmetric edema. 3. Small bilateral pleural effusions. 4. Coronary artery calcifications. 5. Moderate-sized hiatal hernia nonspecific mild diffuse esophageal wall thick ening. Knee X-Ray 10/19/17 0000 Signed Impressions: CONCLUSION: Severe tricompartmental osteoarthritis with a large joint effusion. No definite acute fracture identified. Chest X-Ray 10/19/17 Signed Impressions: CONCLUSION: Abnormal soft tissue mass left chest. CT scan would be of benefit. Extremity Arterial Study 10/18/17 Signed Impressions: CONCLUSION: 1. There is moderate vascular occlusive disease on the left and further charac terization with CT angiography and runoff is recommended. Head CT 10/17/171947 Signed Impressions: CONCLUSION: 1. No acute intracranial abnormalities. Foot X-Ray 10/17/17 Signed Impressions: CONCLUSION: 1. Fifth toe proximal phalanx fracture again seen. 2. No significant interval change. Objective Remarks GENERAL: This is a well-nourished, well-developed patient, in no apparent distress. SKIN: Warm and dry. HEENT: Normocephalic. Pupils equal round and reactive. Nose without bleeding. Airway patent. NECK: Trachea midline. CARDIOVASCULAR: Regular rate and rhythm without murmurs, gallops, or rubs. RESPIRATORY: Coarse breath sounds, rhonchi. No wheezes, rales. GASTROINTESTINAL: Abdomen soft, non-tender, nondistended. Bowel Sounds normoactive x4. MUSCULOSKELETAL: Extremities without clubbing, cyanosis. Bilateral lower extremity edema, Rt knee edema +2, Rt Foot dsg CDI NEUROLOGICAL: Awake and alert. Oriented to place, person. No focal neuro deficit. Moves all extremities. Normal speech. Procedures status post right fifth toe, open, proximal phalanx fracture debridement and irrigation with laceration repair A/P Problem List: (1) Fall ICD Code: W19.XXXA - Unspecified fall, initial encounter Status: Acute (2) Open fracture of toe of right foot ICD Code: S92.911B - Unspecified fracture of right toe(s), initial encounter for open fracture Status: Acute (3) Alcohol intoxication ICD Code: F10.929 - Alcohol use, unspecified with intoxication, unspecified Status: Acute (4) Elevated LFTs ICD Code: R94.5 - Abnormal results of liver function studies Status: Acute Assessment and Plan 60-year-old female with a PMH of Anxiety, Depression, Bipolar Disorder, HTN, Hyperlipidemia, COPD and Alcohol Abuse who is brought to the ER by EMS after a fall with apparent toe injury Pneumonia, acute Possible underlying COPD, patient is smoker -Reports of shortness of breath -CT angio no evidence of pulmonary embolus. Patchy mild groundglass opacity and consolidation in the lungs bilaterally may represent infection or asymmetric edema. Small bilateral pleural effusions. Coronary artery calcifications. Moderate-sized hiatal hernia nonspecific mild diffuse esophageal wall thickening. -Started on IV Zosyn and azithromycin. -We will do duo nebs, Symbicort -We will switch over to Levaquin if patient is going to SNF Status post fall Open toe fracture Status post right proximal fifth toe ORIF, I&D and repair of the laceration by Dr. Benedict -Pain medication oxycodone 5 and 10mg, baclofen -Physical therapy to eval and treat -Discussed with patient plan for DC to rehab instead of home for maximum benefit Right knee pain Right knee effusion -Xray ordered, joint effusion -Orthopedic consulted, joint aspiration has been done. -Gram stain culture moderate WBCs no organisms seen. -Continue knee elevation leg elevation. Pain management Alcohol abuse, acute alcohol intoxication Elevated LFTs -Patient is counseled on alcohol use. Patient states she lives in a not so good environment, naming it as "[place]hetto" that is why she drinks. -Continue CIWA Protocol -Start Librium 10 mg 3 times daily , september DC x3 days -Trend LFTs Bipolar disorder -Continue Prozac, Zyprexa DVT prop SCDs Discharge Planning Plan to DC to fpc facility. Case management working on placement. Problem Qualifiers (1) Fall: Qualified Codes: W19.XXXA - Unspecified fall, initial encounter (2) Open fracture of toe of right foot: Qualified Codes: S92.414B - Nondisplaced fracture of proximal phalanx of right great toe, initial encounter for open fracture Ming Anand Oct 20, 2017 09:50
[2017-10-20] MEDS: BUDESONIDE-FORMOTEROL 160/4.5 MCG INHALER INH SCH ×2 (10:30→20:57)
[2017-10-20] MEDS ORDERED: BACL10TA PO (10:31)
[2017-10-20] MEDS ORDERED: Albuterol-Ipratropium Neb NEB (10:31)
[2017-10-20] MEDS ORDERED: Budeson-Formot 160-4.5 Mcg Inh INH (10:31)
[2017-10-20] MEDS ORDERED: OXYC-392 PO (10:31)
[2017-10-20] MEDS ORDERED: guaiFENesin ER PO (10:31)
[2017-10-20] MEDS ORDERED: LEVA750T9 PO (10:31)
--- NOTE | 2017-10-20 10:38 | MB ---
cc: Leeroy Cuevas PA/Land Leasing Examiner Raj Christina MD DATE: 10/20/2017 CHIEF COMPLAINT: Right knee pain status post fall. HISTORY OF PRESENT ILLNESS: The patient is a 60-year-old white female who presented to the emergency department on 10/17/2017 status post fall at a friend's house. She states that she was walking out of the bathroom when she slipped and fell. She had immediate pain to the right toe on her right foot. She said she was bleeding. She does report that she hit her head on the bathtub. She had been drinking alcohol at the time. She denies any loss of consciousness. She states she has a history of anxiety, depression, bipolar, hypertension, hyperlipidemia, COPD, and alcohol abuse. Other than pain to the right toe, she denies any other discomfort. She reported the pain was 8/10. Podiatry was consulted and she was taken to the operating room for irrigation and debridement and fixation of the right toe. Subsequently, as she has been on the floor, she has developed right knee pain. She states that it has gotten worse over the past couple days. She reports she has a history of osteoarthritis of the right knee. She reports she has never had pain this bad, however. She states that she has had difficulty bending the knee and is unable to bear weight. She says she notices significant swelling. She denies any warmth or erythema of the knee. Denies any numbness, tingling or radiation of symptoms. REVIEW OF SYSTEMS: A 12-point review of systems is negative except for the HPI. PAST MEDICAL HISTORY: Positive for anxiety, depression, bipolar disorder, hypertension, hyperlipidemia, COPD, and alcohol abuse. PAST SURGICAL HISTORY: Positive for hernia repair, appendectomy and a left arthroplasty by Dr. Carlos Giles. ALLERGIES: POSITIVE TO HYDROXYZINE, NORTRIPTYLINE AND BUSPIRONE. FAMILY HISTORY: Reviewed. No history of diabetes or coronary artery disease. SOCIAL HISTORY: States that she drinks 1 liter of vodka per day. She states that she also uses tobacco, but denies any drug use. PHYSICAL EXAMINATION: VITAL SIGNS: Temperature 98.3, pulse 91, blood pressure 108/76, respiratory rate 19, O2 saturation 94 on room air. GENERAL: A well-developed, well-nourished, slightly obese 61-year-old white female, resting comfortably in no acute distress. She was sleeping upon examination, but was awoken easily. HEAD: Head is normocephalic, atraumatic. EARS: Hearing intact bilaterally. EYES: Extraocular motion is intact and pupils were equal, round, reactive to light. NEUROLOGIC: Cranial nerves 2-12 are grossly intact. NECK: Supple with no evidence of lymphadenopathy. ABDOMEN: Soft and nontender. LUNGS: No use of accessory muscles while breathing and no wheezes at bedside. However, she has a significant productive cough sporadically. HEART: No grade 4 murmur present. MUSCULOSKELETAL: Examination of the right leg reveals 2-3+ swelling of the knee. She is nontender to palpation. However, she does have limited motion of the knee secondary to stiffness and pain. She will only allowing me to bend the knee approximately 20 degrees. She is unable to reach full extension. The ligamentous exam is negative. She has full sensation distally. There is no erythema present. LEFT LEG: Examination of the left leg reveals no acute bony abnormality. No deformity noted. Full motion with no pain. There is a scar present from a previous total knee arthroplasty. IMAGING: X-rays of the right knee were reviewed from [facility], which show no acute bony abnormality and shows tricompartmental osteoarthritis of the right knee. LABORATORY DATA: Hemoglobin 11.7, hematocrit 34.1, platelet count 186. INR of 1.1. Sodium of 136, potassium of 3.2, glucose of 110. Toxicology is positive for alcohol at 269. ASSESSMENT: Right knee osteoarthritis with joint effusion. PLAN: Treatment options were discussed with the patient. I believe this is a flare-up of her osteoarthritis secondary to her fall. I believe this should resolve with time. However, due to her swelling and her pain, it is reasonable for an aspirate of the right knee. The patient consented and we will plan for a knee aspirate this morning. We will send the knee aspirate for a cell count, crystals, AFB culture, and Gram stain and culture. We will decide method of treatment pending the results. If it is positive for any kind of infection, she will need infectious disease consult with IV antibiotics. However, if cultures are negative, she will require conservative treatment. We will do the aspirate this morning and we will proceed accordingly pending those results. We will be following along. If it is indeed osteoarthritis, she can followup on an outpatient basis with Dr. Giles since he is taking care of her left knee. We will follow along. The above patient was reviewed and discussed with Dr. Christina and he agrees with the above dictation. HO Ruiz, PA/First Raj Christina MD Assist TYB/SHAYLEE , 09:56 AM , 10:37 AM
--- NOTE | 2017-10-20 10:53 | HHI.DS ---
Discharge Summary Admission Date Oct 17, 2017 at 9:22 pm Discharge Date: Oct 20, 2017 Admitting Diagnosis Open toe fracture, alcohol intoxication (1) Fall ICD Code: W19.XXXA - Unspecified fall, initial encounter Status: Acute (2) Open fracture of toe of right foot ICD Code: S92.911B - Unspecified fracture of right toe(s), initial encounter for open fracture Status: Acute (3) Alcohol intoxication ICD Code: F10.929 - Alcohol use, unspecified with intoxication, unspecified Status: Acute (4) Elevated LFTs ICD Code: R94.5 - Abnormal results of liver function studies Status: Acute Procedures status post right fifth toe, open, proximal phalanx fracture debridement and irrigation with laceration repair Brief History - From Admission This is a 60-year-old female with a PMH of Anxiety, Depression, Bipolar Disorder , HTN, Hyperlipidemia, COPD and Alcohol Abuse who is brought to the ER by EMS after a fall with apparent toe injury. Patient is acutely intoxicated. Per report patient was at a friend's house and had gone to the bathroom at which time she had a slip and fall. Reports hitting her head on bathtub. Denies LOC. Reports significant pain to right fifth toe. Pain is constant, severe, 8/ 10. On arrival, BP 108/62, HR 68, O2 sat 99% on RA, Afebrile. CBC at baseline. Chemistry essentially at baseline. LFTs elevated, improved in comparison to previous labs. Alcohol 269. Foot X-ray with fracture proximal phalanx right fifth toe. CT Head with no acute findings. Dr. Benedict consulted , plan is for surgical intervention this evening, pt will need at least 24hrs of IV Abx after surgery. CBC/BMP: 10/19/176 10/19/172225 Significant Findings Laboratory Tests Test 10/17/17 20:00 10/18/17 09:20 10/19/17 22:26 10/20/17 05:34 Red Blood Count 3.80 MIL/MM3 (4.00-5.30) 3.52 MIL/MM3 (4.00-5.30) 3.24 MIL/MM3 (4.00-5.30) Mean Corpuscular Volume 103.0 FL (80.0-100.0) 103.8 FL (80.0-100.0) 105.0 FL (80.0-100.0) Mean Corpuscular Hemoglobin 34.8 PG (27.0-34.0) 35.4 PG (27.0-34.0) 36.2 PG (27.0-34.0) Lymphocytes (%) (Auto) 45.1 % (9.0-44.0) Monocytes (%) (Auto) 9.9 % (0.0-8.0) Blood Urea Nitrogen 3 MG/DL (7-18) 4 MG/DL (7-18) 6 MG/DL (7-18) Creatinine 0.40 MG/DL (0.50-1.00) 0.45 MG/DL (0.50-1.00) Random Glucose 67 MG/DL (74-106) 110 MG/DL (74-106) Albumin 2.5 GM/DL (3.4-5.0) 2.4 GM/DL (3.4-5.0) 2.0 GM/DL (3.4-5.0) Calcium Level 8.4 MG/DL (8.5-10.1) 7.8 MG/DL (8.5-10.1) 7.1 MG/DL (8.5-10.1) Alkaline Phosphatase 259 U/L (45-117) 235 U/L (45-117) 213 U/L (45-117) Aspartate Amino Transf (AST/SGOT) 91 U/L (15-37) 75 U/L (15-37) 96 U/L (15-37) Alanine Aminotransferase (ALT/SGPT) 75 U/L (10-53) 65 U/L (10-53) Sodium Level 132 MEQ/L (136-145) Chloride Level 95 MEQ/L (98-107) Ethyl Alcohol Level 269 MG/DL (0-5) Neutrophils (%) (Auto) 80.7 % (16.0-70.0) 77.3 % (16.0-70.0) Lymphocytes # (Auto) 0.9 TH/MM3 (1.0-4.8) Hematocrit 34.1 % (35.0-46.0) Total Protein 5.8 GM/DL (6.4-8.2) Potassium Level 3.2 MEQ/L (3.5-5.1) Protein Corrected Calcium 7.8 MG/DL (8.5-10.1) Test 10/20/17 07:05 Synovial Fluid Appearance MARKED (CLEAR) Synovial Fluid WBC 95040 /MM3 (0-200) Synovial Fluid RBC 2500 /MM3 (0-0) Synovial Fluid Neutrophils 96 % (0-25) Imaging Last Impressions CT Angiography 10/20/17 0000 Signed Impressions: CONCLUSION: 1. No evidence of pulmonary embolus. 2. Patchy mixed groundglass opacity and consolidation in the lungs bilaterally may represent infection or asymmetric edema. 3. Small bilateral pleural effusions. 4. Coronary artery calcifications. 5. Moderate-sized hiatal hernia nonspecific mild diffuse esophageal wall thick ening. Knee X-Ray 10/19/17 0000 Signed Impressions: CONCLUSION: Severe tricompartmental osteoarthritis with a large joint effusion. No definite acute fracture identified. Chest X-Ray 10/19/17 Signed Impressions: CONCLUSION: Abnormal soft tissue mass left chest. CT scan would be of benefit. Extremity Arterial Study 10/18/17 0000 Signed Impressions: CONCLUSION: 1. There is moderate vascular occlusive disease on the left and further charac terization with CT angiography and runoff is recommended. Head CT 10/17/171947 Signed Impressions: CONCLUSION: 1. No acute intracranial abnormalities. Foot X-Ray 10/17/17 0000 Signed Impressions: CONCLUSION: 1. Fifth toe proximal phalanx fracture again seen. 2. No significant interval change. PE at Discharge GENERAL: This is a well-nourished, well-developed patient, in no apparent distress. SKIN: Warm and dry. HEENT: Normocephalic. Pupils equal round and reactive. Nose without bleeding. Airway patent. NECK: Trachea midline. CARDIOVASCULAR: Regular rate and rhythm without murmurs, gallops, or rubs. RESPIRATORY: Coarse breath sounds, rhonchi. No wheezes, rales. GASTROINTESTINAL: Abdomen soft, non-tender, nondistended. Bowel Sounds normoactive x4. MUSCULOSKELETAL: Extremities without clubbing, cyanosis. Bilateral lower extremity edema, Rt knee edema +2, Rt Foot dsg CDI NEUROLOGICAL: Awake and alert. Oriented to place, person. No focal neuro deficit. Moves all extremities. Normal speech. Pt update on day of discharge Follow-up visit status post right fifth toe, open, proximal phalanx fracture debridement and irrigation with laceration repair, EtOH, transaminitis, right knee joint effusion. Patient seen and examined today. Reports right knee is slightly better. States that they took out a lot of fluid in it. Pain is manageable. Reports increasing cough, denies SOB/ dyspnea. Denies chest pain, palpitations, headaches, dizziness. Denies fevers, chills, n/v/d. Denies dysuria. Hospital Course 60-year-old female with a PMH of Anxiety, Depression, Bipolar Disorder, HTN, Hyperlipidemia, COPD and Alcohol Abuse who is brought to the ER by EMS after a fall with apparent toe injury. Patient had an open toe fracture were and she is status post right proximal fifth ORIF, I&D and repair of the laceration by Dr. Benedict. She is given pain medication and was treated with physical therapy. Patient had complications during her hospitalization including right knee pain, right knee effusion. Orthopedic team has seen the patient and did joint aspiration, cultures were done and has growth of WBCs. She received IV antibiotics clindamycin, Ancef. She also has developing pneumonia, or in she was given IV Zosyn and azithromycin. CT angio no evidence of pulmonary embolus. Patchy mild groundglass opacity and consolidation in the lungs bilaterally may represent infection or asymmetric edema. Small bilateral pleural effusions. Coronary artery calcifications. Moderate-sized hiatal hernia nonspecific mild diffuse esophageal wall thickening. She will be discharged with IV Levaquin for pneumonia coverage and also this can cover anaerobes for her wound. Patient has extensive alcohol use, and she was started on Librium. She may continue delivery of in few days. She is advice and recommended to go to rehabilitation facility for further treatment. Patient has met maximal benefits of hospitalization. Clinically stable for discharge. She is to follow -up with podiatry and her PCP on discharge. Pt Condition on Discharge: Stable Discharge Disposition: Discharge to SNF Discharge Time: > 30 minutes Discharge Instructions DIET: Follow Instructions for: Heart Healthy Diet Activities you can perform: Weight Bearing as Leann Follow up Referrals: PCP Follow-up Podiatry - 1 Week with Idalmis Benedict DPM New Medications: Levofloxacin (Levaquin) 750 Mg Tablet 750 MG PO DAILY for Infection for 5 Days, #5 TAB 0 Refills Baclofen (Baclofen) 10 Mg Tab 10 MG PO Q8HR for Muscle Spasm, #15 TAB Folic Acid (Folic Acid) 1 Mg Tablet 1 MG PO DAILY for Nutritional Supplement, #30 TAB Multiple Vitamins W/ Minerals (Thera M Plus) 1 Tab 1 TAB PO DAILY for Nutritional Supplement, #30 TAB Oxycodone (Oxycodone) 5 Mg Tab 5 MG PO Q4H PRN for PAIN, #12 TAB Thiamine HCl (Gnp Vitamin B-1) 100 Mg Tab 100 MG PO DAILY for Nutritional Supplement, #30 TAB [Albuterol-Ipratropium Neb] () 1 AMPULE NEBU 1 AMPULE NEB Q6HR NEB for Shortness of Breath, #30 [Budeson-Formot 160-4.5 Mcg Inh] () 60 PUFF AERO 1 PUFF INH Q12HR for COPD, #1 INHALER [guaiFENesin ER] () 600 MG TABCR 600 MG PO BID for Cough, #12 TAB Continued Medications: Bupropion HCl (Bupropion HCl) 75 Mg Tab 75 MG PO DAILY for Control Depression, TAB 0 Refills Fluoxetine (Fluoxetine) 40 Mg Cap 40 CAP PO DAILY, #30 CAP 0 Refills Gabapentin (Gabapentin) 600 Mg Tab 600 MG PO TID, #90 TAB 0 Refills Lactobacillus Acidophilus (Lactobacillus Acidophilus) 1 Tab Tab 1 TAB PO DAILY for Nutritional Supplement, #30 TAB 0 Refills Take with food Lovastatin (Lovastatin) 40 Mg Tab 40 MG PO DAILY for Cholesterol Management, #30 TAB 0 Refills Meloxicam (Mobic) 7.5 Mg Tab 7.5 MG PO DAILY for ARTHRITIS, TAB 0 Refills Olanzapine (Olanzapine) 20 Mg Tab 20 MG PO HS, #30 TAB 0 Refills Ming Anand Oct 20, 2017 10:53
[2017-10-20] MEDS: guaiFENesin E.R. 600 MG TAB PO SCH ×2 (13:57→20:19)
[2017-10-20] MEDS: OLANZapine 10 MG TAB PO SCH (20:19)
[2017-10-21] VITALS (10 sets, daily range): BP systolic 92–135; BP diastolic 63–88; PULSE 88–111; RESP 18–28; TEMP 97.2–98; O2SAT 88–98
[2017-10-21] MEDS: RESP: ALBUTEROL 2.5 MG/IPRATROPIUM 0.5 MG NEB (PRN) NEB (01:47)
[2017-10-21] MEDS: AZITHROMYCIN INJ 500 MG in SODIUM CHLOR 0.9% 250 ML INJ 250 ML IV SCH (02:18)
--- NOTE | 2017-10-21 02:28 | RADRPT ---
EXAM DATE: 10/21/2017 2:21 AM EDT AGE/SEX: 61 years / Female INDICATIONS: Congestion. CLINICAL DATA: This is the patient's subsequent encounter. Patient reports that signs and symptoms h ave been present for 4 - 6 days and indicates a pain score of 0/10. MEDICAL/SURGICAL HISTORY: Hypertension. Chronic obstructive pulmonary disease. None. COMPARISON: [facility] [place], CHEST SINGLE AP, 10/19/2017. . FINDINGS: Single AP view of the chest. Marked increase in left greater than right pulmonary opacity indicating pulmonary consolidation. Cardiomediastinal silhouette unchanged. No evidence of pleural effusion or p neumothorax. CONCLUSION: Marked increase in left greater than right on her parenchymal opacity. Differential diagnosis is asym metric pulmonary edema versus infection. Electronically signed by: Eduard Faye MD 10/21/2017 2:27 AM EDT
[2017-10-21] MEDS: RESP: ALBUTEROL 2.5 MG/IPRATROPIUM 0.5 MG NEB (SCH) NEB ×4 (02:30→21:04)
[2017-10-21] MEDS ORDERED: Vancomycin Consult Pharmacy 1 EA OTHER SCH (03:00)
[2017-10-21] MEDS ORDERED: POTASSIUM CHLOR 20 MEQ PREMIX 100 ML IV SCH (03:00)
[2017-10-21] MEDS ORDERED: FUROSEMIDE 40 MG/4 ML VIAL IV PUSH ONE (03:00)
[2017-10-21] MEDS ORDERED: VANCOMYCIN INJ 1,000 MG in SODIUM CHLOR 0.9% 250 ML INJ 250 ML IV ONE (03:00)
[2017-10-21] MEDS ORDERED: VANCOMYCIN 1,500 MG/NS 500 ML IV ONE ×2 (03:15)
[2017-10-21 03:50] LABS: HEMATOCRIT 36.5 % (35.0-46.0); HEMOGLOBIN 12.3 GM/DL (11.6-15.3); MEAN CELL VOLUME 105.5 FL (80.0-100.0); MEAN CORPUSCULAR HEMOGLOBIN 35.6 PG (27.0-34.0); MEAN CORPUSCULAR HGB CONC 33.8 % (32.0-36.0); MEAN PLATELET VOLUME 8.1 FL (7.0-11.0); PLATELET COUNT 176 TH/MM3 (150-450); RED BLOOD COUNT 3.46 MIL/MM3 (4.00-5.30); RED CELL DISTRIBUTION WIDTH 16.4 % (11.6-17.2); WHITE BLOOD COUNT 8.2 TH/MM3 (4.0-11.0)
[2017-10-21 04:03] LABS: BICARBONATE 29.9 MEQ/L (21.0-32.0); CALCIUM 7.9 MG/DL (8.5-10.1); CREATININE 0.55 MG/DL (0.50-1.00)
[2017-10-21] MEDS: SODIUM CHLOR 0.9% 1000 ML INJ 1,000 ML IV SCH ×2 (05:22→15:22)
[2017-10-21] MEDS: BACLOFEN 10 MG TAB PO SCH ×3 (05:51→21:23)
--- NOTE | 2017-10-21 07:15 | PD.ORT.PN ---
Subjective Subjective Remarks s/p Right knee aspirate doing well. states pain has not improved much. Objective Vitals Vital Signs Date Time Temp Pulse Resp B/P (MAP) Pulse Ox O2 Delivery O2 Flow Rate FiO2 10/21/17 05:58 Simple Mask 6.00 10/21/17 04:25 98.0 88 21 128/78 (95) 95 10/21/17 02:57 Simple Mask 8.00 10/21/17 02:20 Simple Mask 10.00 10/21/17 02:19 95 Simple Mask 10.00 10/21/17 01:35 Nasal Cannula 5.00 10/21/17 01:00 98.0 104 19 130/88 (102) 92 10/20/17 23:37 Nasal Cannula 3.00 10/20/17 20:56 18 10/20/17 20:25 98.3 110 18 135/83 (100) 92 10/20/17 16:13 97.4 85 17 124/66 (85) 92 10/20/17 15:46 92 Nasal Cannula 4.00 10/20/17 12:05 98.9 94 19 108/80 (89) 99 10/20/17 10:45 98 Nasal Cannula 4.00 10/20/17 08:27 98.3 91 19 108/76 (87) 94 I/O 10/20/17 10/20/17 10/20/17 10/21/17 10/21/17 10/21/17 07:00 15:00 23:00 07:00 15:00 23:00 Intake Total 120 ml 900 ml 480 ml Balance 120 ml 900 ml 480 ml Intake Oral 120 ml 900 ml 480 ml # Voids 4 4 6 # Bowel Movements 0 1 0 Result Diagram: 10/21/17 0335 10/21/17 0335 Imaging Last 24 hours Impressions Chest X-Ray 10/21/17 0000 Signed Impressions: CONCLUSION: Marked increase in left greater than right on her parenchymal opacity. Differen tial diagnosis is asymmetric pulmonary edema versus infection. Objective Remarks RLE: +swelling. pain with motion of knee. no erythema. nvi Assessment & Plan Assessment and Plan 1) Right Knee Psuedogout -aspirate shows calcium pyrophosphate crystals -WBAT -medical mgmt with NSAIDs -no further ortho workup or treatment needed -f/u PRN -ortho signing off Leeroy Cuevas/Consignee PA Oct 21, 2017 07:15
[2017-10-21] MEDS: PIPERACIL-TAZO 4.5 GM PREMIX 100 ML IV SCH (08:34)
[2017-10-21] MEDS: POTASSIUM CHLORIDE 20 MEQ CONTROLLED RELEASE TAB PO SCH (08:39)
[2017-10-21] MEDS: FLUoxetine HCL 20 MG CAP PO SCH (08:39)
[2017-10-21] MEDS: DOCUSATE SODIUM 50 MG/SENNA 8.6 MG TAB PO SCH ×2 (08:40→21:23)
[2017-10-21] MEDS: PRAVASTATIN SOD 40 MG TAB PO SCH (08:40)
[2017-10-21] MEDS: THIAMINE HCL 100 MG TAB PO SCH (08:40)
[2017-10-21] MEDS: LACTOBACILLUS ACIDOPHILUS TAB PO SCH (08:40)
[2017-10-21] MEDS: MULTIVITAMINS/MINERALS THERAPEUTIC TAB PO SCH (08:40)
[2017-10-21] MEDS: guaiFENesin E.R. 600 MG TAB PO SCH ×2 (08:40→21:22)
[2017-10-21] MEDS: FOLIC ACID 1 MG TAB PO SCH (08:40)
[2017-10-21] MEDS: GABAPENTIN 300 MG CAP PO SCH ×3 (08:40→17:52)
[2017-10-21] MEDS: BUDESONIDE-FORMOTEROL 160/4.5 MCG INHALER INH SCH ×2 (08:41→21:37)
[2017-10-21] MEDS: FUROSEMIDE 40 MG/4 ML VIAL IV PUSH SCH (08:41)
[2017-10-21] MEDS: SODIUM CHLORIDE 0.9% FLUSH 10 ML FLUSH IV FLUSH SCH ×2 (08:42→21:36)
[2017-10-21] MEDS: methylPREDNISolone SOD SUCC 40 MG/1 ML VIAL IV PUSH SCH ×3 (08:42→21:26)
--- NOTE | 2017-10-21 09:37 | HHI.PR ---
Subjective Remarks Follow-up visit status post right fifth toe, open, proximal phalanx fracture debridement and irrigation with laceration repair, EtOH, transaminitis, right knee joint effusion, COPD with exacerbation, possible CHF. Patient seen and examined today. Patient had episode of severe shortness of breath with desaturation and her oxygen. She was placed on facial mask with oxygen to approximately 10 L/min. She given vancomycin, Lasix. Chest x-ray showed marked increase in left greater than right on her parenchymal opacity. Differential diagnosis is a symmetric pulmonary edema versus infection. Patient states she got severely short of breath yesterday and she was told that his saturation was low. Patient reports she continues to have shortness of breath but not worsening. Patient is very loud and very talkative without even pausing for breath when she talk. She is now on 5 L nasal cannula saturating 92 -94%. Patient states right lower extremity pain has improved. She will get out of bed to chair today. Discussed with patient plan for use of steroids and Lasix. Patient complains of Lasix making her urinate and not able to go to the bathroom right away. Discussed importance of the medication with her current condition. DDenies chest pain, palpitations, headaches, dizziness. Denies fevers, chills, n/v/d. Denies dysuria. Decreased to 3L and will monitor Objective Vitals Vital Signs Date Time Temp Pulse Resp B/P (MAP) Pulse Ox O2 Delivery O2 Flow Rate FiO2 10/21/17 08:00 98.0 101 20 135/83 (100) 91 10/21/17 05:58 Simple Mask 6.00 10/21/17 04:25 98.0 88 21 128/78 (95) 95 10/21/17 02:57 Simple Mask 8.00 10/21/17 02:20 Simple Mask 10.00 10/21/17 02:19 95 Simple Mask 10.00 10/21/17 01:35 Nasal Cannula 5.00 10/21/17 01:00 98.0 104 19 130/88 (102) 92 10/20/17 23:37 Nasal Cannula 3.00 10/20/17 20:56 18 10/20/17 20:25 98.3 110 18 135/83 (100) 92 10/20/17 16:13 97.4 85 17 124/66 (85) 92 10/20/17 15:46 92 Nasal Cannula 4.00 10/20/17 12:05 98.9 94 19 108/80 (89) 99 10/20/17 10:45 98 Nasal Cannula 4.00 I/O 10/20/17 10/20/17 10/20/17 10/21/17 10/21/17 10/21/17 07:00 15:00 23:00 07:00 15:00 23:00 Intake Total 120 ml 1000 ml 730 ml Balance 120 ml 1000 ml 730 ml Intake Oral 120 ml 900 ml 480 ml IV Total 100 ml 250 ml # Voids 4 4 6 # Bowel Movements 0 1 0 Result Diagram: 10/21/17 0335 10/21/17 0335 Imaging Last Impressions Chest X-Ray 10/21/17 Signed Impressions: CONCLUSION: Marked increase in left greater than right on her parenchymal opacity. Differen tial diagnosis is asymmetric pulmonary edema versus infection. CT Angiography 10/20/17 Signed Impressions: CONCLUSION: 1. No evidence of pulmonary embolus. 2. Patchy mixed groundglass opacity and consolidation in the lungs bilaterally may represent infection or asymmetric edema. 3. Small bilateral pleural effusions. 4. Coronary artery calcifications. 5. Moderate-sized hiatal hernia nonspecific mild diffuse esophageal wall thick ening. Knee X-Ray 10/19/17 Signed Impressions: CONCLUSION: Severe tricompartmental osteoarthritis with a large joint effusion. No definite acute fracture identified. Extremity Arterial Study 10/18/17 Signed Impressions: CONCLUSION: 1. There is moderate vascular occlusive disease on the left and further charac terization with CT angiography and runoff is recommended. Head CT 10/17/171947 Signed Impressions: CONCLUSION: 1. No acute intracranial abnormalities. Foot X-Ray 10/17/17 Signed Impressions: CONCLUSION: 1. Fifth toe proximal phalanx fracture again seen. 2. No significant interval change. Objective Remarks GENERAL: This is a well-nourished, well-developed patient, in no apparent distress. SKIN: Warm and dry. HEENT: Normocephalic. Pupils equal round and reactive. Nose without bleeding. Airway patent. NECK: Trachea midline. CARDIOVASCULAR: Regular rate and rhythm without murmurs, gallops, or rubs. RESPIRATORY: Coarse breath sounds, rhonchi, mild crackles at the bases. No wheezes, rales. GASTROINTESTINAL: Abdomen soft, non-tender, nondistended. Bowel Sounds normoactive x4. MUSCULOSKELETAL: Extremities without clubbing, cyanosis. Bilateral lower extremity edema, Rt knee edema +2, Rt Foot dsg CDI NEUROLOGICAL: Awake and alert. Oriented to place, person. No focal neuro deficit. Moves all extremities. Normal speech. Procedures status post right fifth toe, open, proximal phalanx fracture debridement and irrigation with laceration repair A/P Problem List: (1) Fall ICD Code: W19.XXXA - Unspecified fall, initial encounter Status: Acute (2) Open fracture of toe of right foot ICD Code: S92.911B - Unspecified fracture of right toe(s), initial encounter for open fracture Status: Acute (3) Alcohol intoxication ICD Code: F10.929 - Alcohol use, unspecified with intoxication, unspecified Status: Acute (4) Elevated LFTs ICD Code: R94.5 - Abnormal results of liver function studies Status: Acute Assessment and Plan 60-year-old female with a PMH of Anxiety, Depression, Bipolar Disorder, HTN, Hyperlipidemia, COPD and Alcohol Abuse who is brought to the ER by EMS after a fall with apparent toe injury Pneumonia, acute COPD exacerbation, patient is 2PPD smoker >20 years -Reports of shortness of breath -CT angio no evidence of pulmonary embolus. Patchy mild groundglass opacity and consolidation in the lungs bilaterally may represent infection or asymmetric edema. Small bilateral pleural effusions. Coronary artery calcifications. Moderate-sized hiatal hernia nonspecific mild diffuse esophageal wall thickening. -Chest x-ray showed marked increase in left greater than right on her parenchymal opacity. Differential diagnosis is asymmetric pulmonary edema versus infection -She was on IV Azithro and Zosyn. She also received vancomycin 1 dose. Lasix IV given. Switch to IV Levaquin, DC other antibiotics. Will switch to p.o. Levaquin tomorrow -Continue Lasix IV today and tomorrow. Switch to p.o. if continues to need the medication. Will add Solu-Medrol 40 mg IV every 8 hours. Switch to p.o. prednisone 40 mg daily 7 day tomorrow if going toSNF -Continue O2 nasal cannula or simple mask keep O2 sat greater than 88%. Duo nebs, Symbicort, tiotropium -We will switch over to Levaquin if patient is going to SNF -Will start Ativan 0.5mg low dose for anxiety which can exacerbate SOB Status post fall Open toe fracture Status post right proximal fifth toe ORIF, I&D and repair of the laceration by Dr. Benedict -Pain medication oxycodone 5 and 10mg, baclofen -Physical therapy to eval and treat -Discussed with patient plan for DC to rehab instead of home for maximum benefit Right knee pain Right knee effusion -Xray ordered, joint effusion -Orthopedic consulted, joint aspiration has been done. Appreciate recommendations. -Gram stain culture moderate WBCs no organisms seen. No acid-fast bacilli seen, no fungal elements seen -Aspirate showed calcium pyrophosphate crystals. Recommend NSAIDs -Continue knee elevation leg elevation. Pain management Alcohol abuse, acute alcohol intoxication Elevated LFTs -Patient is counseled on alcohol use. Patient states she lives in a not so good environment, naming it as "[place]hetto" that is why she drinks. -Continue CIWA Protocol -DC Librium. Patient does not appear to be in withdrawals -Trend LFTs Bipolar disorder -Continue Prozac, Zyprexa DVT prop SCDs Discharge Planning Plan to DC to senior living facility when clinically improved tomorrow. Authorization to go to [facility] has been approved. Problem Qualifiers (1) Fall: Qualified Codes: W19.XXXA - Unspecified fall, initial encounter (2) Open fracture of toe of right foot: Qualified Codes: S92.414B - Nondisplaced fracture of proximal phalanx of right great toe, initial encounter for open fracture Ming Anand Oct 21, 2017 09:37
[2017-10-21] MEDS: LEVOFLOXACIN 750 MG PREMIX INJ 150 ML IV SCH (12:17)
[2017-10-21] MEDS ORDERED: Albuterol-Ipratropium Neb NEB (16:35)
[2017-10-21] MEDS ORDERED: SPIRCAP INH (16:35)
[2017-10-21] MEDS ORDERED: PRED20 PO (16:37)
[2017-10-21] MEDS ORDERED: LORazepam 0.5 MG TAB PO PRN (16:45)
--- NOTE | 2017-10-21 17:47 | HHI.PR ---
Subjective Remarks not seen Objective Vitals Vital Signs Date Time Temp Pulse Resp B/P (MAP) Pulse Ox O2 Delivery O2 Flow Rate FiO2 10/21/17 15:49 96 Nasal Cannula 6.00 10/21/17 12:00 97.2 88 22 100/65 (77) 96 10/21/17 10:55 91 Nasal Cannula 6.00 10/21/17 08:33 89 Nasal Cannula 6.00 Simple Mask 10/21/17 08:00 98.0 101 20 135/83 (100) 91 10/21/17 05:58 Simple Mask 6.00 10/21/17 04:25 98.0 88 21 128/78 (95) 95 10/21/17 02:57 Simple Mask 8.00 10/21/17 02:20 Simple Mask 10.00 10/21/17 02:19 95 Simple Mask 10.00 10/21/17 01:35 Nasal Cannula 5.00 10/21/17 01:00 98.0 104 19 130/88 (102) 92 10/20/17 23:37 Nasal Cannula 3.00 10/20/17 20:56 18 10/20/17 20:25 98.3 110 18 135/83 (100) 92 I/O 10/20/17 10/20/17 10/20/17 10/21/17 10/21/17 10/21/17 07:00 15:00 23:00 07:00 15:00 23:00 Intake Total 120 ml 1000 ml 730 ml 100 ml Output Total 150 ml Balance 120 ml 1000 ml 730 ml -50 ml Intake Oral 120 ml 900 ml 480 ml IV Total 100 ml 250 ml 100 ml Output Urine Total 150 ml # Voids 4 4 6 # Bowel Movements 0 1 0 Result Diagram: 10/21/17 0335 10/21/17 0335 Imaging Last Impressions Chest X-Ray 10/21/17 0000 Signed Impressions: CONCLUSION: Marked increase in left greater than right on her parenchymal opacity. Differen tial diagnosis is asymmetric pulmonary edema versus infection. CT Angiography 10/20/17 0000 Signed Impressions: CONCLUSION: 1. No evidence of pulmonary embolus. 2. Patchy mixed groundglass opacity and consolidation in the lungs bilaterally may represent infection or asymmetric edema. 3. Small bilateral pleural effusions. 4. Coronary artery calcifications. 5. Moderate-sized hiatal hernia nonspecific mild diffuse esophageal wall thick ening. Knee X-Ray 10/19/17 Signed Impressions: CONCLUSION: Severe tricompartmental osteoarthritis with a large joint effusion. No definite acute fracture identified. Extremity Arterial Study 10/18/17 Signed Impressions: CONCLUSION: 1. There is moderate vascular occlusive disease on the left and further charac terization with CT angiography and runoff is recommended. Head CT 10/17/171947 Signed Impressions: CONCLUSION: 1. No acute intracranial abnormalities. Foot X-Ray 10/17/17 Signed Impressions: CONCLUSION: 1. Fifth toe proximal phalanx fracture again seen. 2. No significant interval change. Objective Remarks GENERAL: This is a well-nourished, well-developed patient, in no apparent distress. SKIN: Warm and dry. HEENT: Normocephalic. Pupils equal round and reactive. Nose without bleeding. Airway patent. NECK: Trachea midline. CARDIOVASCULAR: Regular rate and rhythm without murmurs, gallops, or rubs. RESPIRATORY: Coarse breath sounds, rhonchi, mild crackles at the bases. No wheezes, rales. GASTROINTESTINAL: Abdomen soft, non-tender, nondistended. Bowel Sounds normoactive x4. MUSCULOSKELETAL: Extremities without clubbing, cyanosis. Bilateral lower extremity edema, Rt knee edema +2, Rt Foot dsg CDI NEUROLOGICAL: Awake and alert. Oriented to place, person. No focal neuro deficit. Moves all extremities. Normal speech. Procedures status post right fifth toe, open, proximal phalanx fracture debridement and irrigation with laceration repair A/P Problem List: (1) Fall ICD Code: W19.XXXA - Unspecified fall, initial encounter Status: Acute (2) Open fracture of toe of right foot ICD Code: S92.911B - Unspecified fracture of right toe(s), initial encounter for open fracture Status: Acute (3) Alcohol intoxication ICD Code: F10.929 - Alcohol use, unspecified with intoxication, unspecified Status: Acute (4) Elevated LFTs ICD Code: R94.5 - Abnormal results of liver function studies Status: Acute Assessment and Plan 60-year-old female with a PMH of Anxiety, Depression, Bipolar Disorder, HTN, Hyperlipidemia, COPD and Alcohol Abuse who is brought to the ER by EMS after a fall with apparent toe injury Pneumonia, acute COPD exacerbation, patient is 2PPD smoker >20 years -Reports of shortness of breath -CT angio no evidence of pulmonary embolus. Patchy mild ground glass opacity and consolidation in the lungs bilaterally may represent infection or asymmetric edema. Small bilateral pleural effusions. Coronary artery calcifications. Moderate-sized hiatal hernia nonspecific mild diffuse esophageal wall thickening. -Chest x-ray showed marked increase in left greater than right on her parenchymal opacity. Differential diagnosis is asymmetric pulmonary edema versus infection -Switch to PO azithromycin, continue on IV Zosyn. She also received vancomycin 1 dose. Lasix IV given -Duo nebportia Symbicort. Continue Lasix IV today and tomorrow. Switch to p.o. if continues to need IV. Will add Solu-Medrol 40 mg IV every 8 hours. Switch to p.o. prednisone 40 mg daily 7 day tomorrow if going to SNF -We will switch over to Levaquin if patient is going to SNF -Will start Ativan 0.5mg low dose for anxiety which can exacerbate SOB Status post fall Open toe fracture Status post right proximal fifth toe ORIF, I&D and repair of the laceration by Dr. Benedict -Pain medication oxycodone 5 and 10mg, baclofen -Physical therapy to eval and treat -Discussed with patient plan for DC to rehab instead of home for maximum benefit Right knee pain Right knee effusion -Xray ordered, joint effusion -Orthopedic consulted, joint aspiration has been done. Appreciate recommendations. -Gram stain culture moderate WBCs no organisms seen. No acid-fast bacilli seen, no fungal elements seen -Aspirate showed calcium pyrophosphate crystals. Recommend NSAIDs -Continue knee elevation leg elevation. Pain management Alcohol abuse, acute alcohol intoxication Elevated LFTs -Patient is counseled on alcohol use. Patient states she lives in a not so good environment, naming it as "[place]hetto" that is why she drinks. -Continue CIWA Protocol -DC Librium. Patient does not appear to be in withdrawals -Trend LFTs Bipolar disorder -Continue Prozac, Zyprexa DVT prop SCDs Discharge Planning Plan to DC [facility] when clinically improved . Authorization to go to [facility] has been approved. Problem Qualifiers (1) Fall: Qualified Codes: W19.XXXA - Unspecified fall, initial encounter (2) Open fracture of toe of right foot: Qualified Codes: S92.414B - Nondisplaced fracture of proximal phalanx of right great toe, initial encounter for open fracture Rk Sagastume MD Oct 21, 2017 17:47
[2017-10-21] MEDS: TIOTROPIUM BROMIDE 18 MCG INH INH SCH (17:53)
--- NOTE | 2017-10-21 19:58 | ECHRPT ---
Indication: SHORTNESS OF BREATH CONCLUSIONS The left ventricular systolic function is mildly reduced with an estimated ejection fraction in the range of 45- 50%. Trace mitral valve regurgitation. There is mild tricuspid valve regurgitation. BP: 135 / 83 HR: 101 Rhythm: Sinus MEASUREMENTS (Male / Female) Normal Values Technical Quality:Technically difficult study 2D ECHO LV Diastolic Diameter PLAX 4.0 cm 4.2 - 5.9 / 3.9 - 5.3 cm LV Systolic Diameter PLAX 2.5 cm IVS Diastolic Thickness 1.0 cm 0.6 - 1.0 / 0.6 - 0.9 cm LVPW Diastolic Thickness 1.0 cm 0.6 - 1.0 / 0.6 - 0.9 cm LV Relative Wall Thickness 0.5 RV Internal Dim ED PLAX 2.2 cm LVOT Diameter 2.1 cm Aortic Root Diameter 3.0 cm M-MODE AV Cusp Separation MM 2.0 cm DOPPLER AV Peak Velocity 97.9 cm/s AV Peak Gradient 3.8 mmHg AV Mean Gradient 2.0 mmHg AV Velocity Time Integral 12.5 cm LVOT Peak Velocity 56.4 cm/s LVOT Peak Gradient 1.3 mmHg LVOT Velocity Time Integral 8.7 cm AV Area Cont Eq vti 2.4 cm AV Area Cont Eq pk 2.0 cm Mitral E Point Velocity 62.7 cm/s Mitral A Point Velocity 57.3 cm/s Mitral E to A Ratio 1.1 LV E' Lateral Velocity 6.3 cm/s Mitral E to LV E' Lateral Ratio 9.9 LV E' Septal Velocity 6.9 cm/s Mitral E to LV E' Septal Ratio 9.1 TR Peak Velocity 252.0 cm/s TR Peak Gradient 25.4 mmHg Right Atrial Pressure 10.0 mmHg Pulmonary Artery Systolic Pressu 35.4 mmHg Right Ventricular Systolic Press 35.4 mmHg PV Peak Velocity 63.2 cm/s PV Peak Gradient 1.6 mmHg FINDINGS LEFT VENTRICLE Normal left ventricular size. Wall thickness is normal. The left ventricular systolic function is mildly reduced with an estimated ejection fraction in the range of 45- 50%. There was limited left ventricular wall motion assessment due to poor endocardial visualization. RIGHT VENTRICLE Grossly normal LEFT ATRIUM The left atrial size is normal. RIGHT ATRIUM The right atrium is not well visualized. ATRIAL SEPTUM The interatrial septum not well visualized. AORTA The aortic root and proximal ascending aorta are normal in size on limited imaging. MITRAL VALVE Grossly normal No mitral valve stenosis. Trace mitral valve regurgitation. AORTIC VALVE Aortic valve sclerosis is present. Mild thickening of the aortic valve leaflets. No aortic valve regurgitation. No aortic valve stenosis. TRICUSPID VALVE Grossly normal There is mild tricuspid valve regurgitation. The estimated pulmonary arterial pressure is 35.4 mmHg. PULMONARY VALVE No pulmonary valve regurgitation or stenosis. VESSELS The inferior vena cava was not well visualized. PERICARDIUM A prominent epicardial fat pad is present. No pericardial effusion. Caesar Fall DO (Electronically Signed) Final Date:21 October 2017 19:57
[2017-10-21] MEDS: OLANZapine 10 MG TAB PO SCH (21:23)
[2017-10-21] MEDS: METOCLOPRAMIDE HCL 10 MG/2 ML VIAL IV PUSH PRN (21:28)
[2017-10-22] MEDS: SODIUM CHLOR 0.9% 1000 ML INJ 1,000 ML IV SCH (01:22)
[2017-10-22] MEDS: RESP: ALBUTEROL 2.5 MG/IPRATROPIUM 0.5 MG NEB (SCH) NEB ×4 (03:11→21:09)
[2017-10-22 03:45] VITALS: BP 99/65; PULSE 89; RESP 18; TEMP 98.1; O2SAT 88
[2017-10-22] MEDS: BACLOFEN 10 MG TAB PO SCH ×3 (07:04→21:30)
[2017-10-22] MEDS: methylPREDNISolone SOD SUCC 40 MG/1 ML VIAL IV PUSH SCH ×2 (07:04→12:49)
[2017-10-22 07:10] LABS: BASOPHIL % 0.2 % (0.0-2.0); EOSINOPHIL % 0.1 % (0.0-4.0); HEMATOCRIT 31.4 % (35.0-46.0); HEMOGLOBIN 10.7 GM/DL (11.6-15.3); LYMPH % 10.7 % (9.0-44.0); LYMPHOCYTE # 0.8 TH/MM3 (1.0-4.8); MEAN CELL VOLUME 105.4 FL (80.0-100.0); MEAN CORPUSCULAR HEMOGLOBIN 35.9 PG (27.0-34.0); MEAN CORPUSCULAR HGB CONC 34.1 % (32.0-36.0); MEAN PLATELET VOLUME 8.9 FL (7.0-11.0); MONO % 6.3 % (0.0-8.0); MONOCYTE # 0.5 TH/MM3 (0-0.9); NEUT % 82.7 % (16.0-70.0); PLATELET COUNT 162 TH/MM3 (150-450); RED BLOOD COUNT 2.97 MIL/MM3 (4.00-5.30); RED CELL DISTRIBUTION WIDTH 16.4 % (11.6-17.2); WHITE BLOOD COUNT 7.2 TH/MM3 (4.0-11.0)
[2017-10-22 08:00] VITALS: BP 96/65; PULSE 86; RESP 26; TEMP 98.4; O2SAT 91
[2017-10-22 08:05] LABS: ALBUMIN 1.8 GM/DL (3.4-5.0); ALKALINE PHOSPHATASE 164 U/L (45-117); ALT (GPT) 22 U/L (10-53); AST (GOT) 52 U/L (15-37); BICARBONATE 29.3 MEQ/L (21.0-32.0); BLOOD UREA NITROGEN 6 MG/DL (7-18); CALCIUM 8.2 MG/DL (8.5-10.1); CHLORIDE 98 MEQ/L (98-107); GLOMERULAR FILTRATION RATE 161 ML/MIN (>89); GLUCOSE,RANDOM 134 MG/DL (74-106); SODIUM (NA) 139 MEQ/L (136-145); TOTAL BILIRUBIN ADULT 0.6 MG/DL (0.2-1.0); TOTAL PROTEIN 6.1 GM/DL (6.4-8.2)
[2017-10-22] MEDS: BUDESONIDE-FORMOTEROL 160/4.5 MCG INHALER INH SCH ×2 (09:15→21:00)
[2017-10-22] MEDS: TIOTROPIUM BROMIDE 18 MCG INH INH SCH (09:15)
[2017-10-22] MEDS: THIAMINE HCL 100 MG TAB PO SCH (09:17)
[2017-10-22] MEDS: DOCUSATE SODIUM 50 MG/SENNA 8.6 MG TAB PO SCH ×2 (09:18→21:30)
[2017-10-22] MEDS: PRAVASTATIN SOD 40 MG TAB PO SCH (09:18)
[2017-10-22] MEDS: guaiFENesin E.R. 600 MG TAB PO SCH ×2 (09:18→21:30)
[2017-10-22] MEDS: POTASSIUM CHLORIDE 20 MEQ CONTROLLED RELEASE TAB PO SCH (09:18)
[2017-10-22] MEDS: LACTOBACILLUS ACIDOPHILUS TAB PO SCH (09:18)
[2017-10-22] MEDS: FLUoxetine HCL 20 MG CAP PO SCH (09:18)
[2017-10-22] MEDS: MULTIVITAMINS/MINERALS THERAPEUTIC TAB PO SCH (09:18)
[2017-10-22] MEDS: GABAPENTIN 300 MG CAP PO SCH ×4 (09:18→21:31)
[2017-10-22] MEDS: SODIUM CHLORIDE 0.9% FLUSH 10 ML FLUSH IV FLUSH SCH ×2 (09:19→21:32)
[2017-10-22] MEDS: FUROSEMIDE 40 MG/4 ML VIAL IV PUSH SCH (09:19)
[2017-10-22] MEDS: FOLIC ACID 1 MG TAB PO SCH (09:22)
[2017-10-22 09:25] VITALS: O2SAT 92
[2017-10-22] MEDS ORDERED: POTASSIUM CHLORIDE 20 MEQ CONTROLLED RELEASE TAB PO ONE (09:30)
--- NOTE | 2017-10-22 09:40 | HHI.PR ---
Subjective Remarks F/u hypoxia. Still on 4-6 L NC dw Pulmo Objective Vitals Vital Signs Date Time Temp Pulse Resp B/P (MAP) Pulse Ox O2 Delivery O2 Flow Rate FiO2 10/22/17 09:25 92 Nasal Cannula 6.00 10/22/17 08:00 98.4 86 26 96/65 (75) 91 10/22/17 03:45 98.1 89 18 99/65 (76) 88 10/22/17 00:16 Nasal Cannula 4.00 10/21/17 23:30 97.6 111 18 125/63 (83) 98 10/21/17 19:25 97.3 90 18 97/71 (80) 88 10/21/17 16:00 97.4 94 28 92/66 (75) 90 10/21/17 15:49 96 Nasal Cannula 6.00 10/21/17 12:00 97.2 88 22 100/65 (77) 96 10/21/17 10:55 91 Nasal Cannula 6.00 I/O 10/21/17 10/21/17 10/21/17 10/22/17 10/22/17 10/22/17 07:00 15:00 23:00 07:00 15:00 23:00 Intake Total 730 ml 700 ml 620 ml Output Total 150 ml Balance 730 ml 550 ml 620 ml Intake Oral 480 ml 600 ml 620 ml IV Total 250 ml 100 ml Output Urine Total 150 ml # Voids 6 5 4 # Bowel Movements 0 Result Diagram: 10/22/17 0447 10/22/177 Imaging Last Impressions Chest X-Ray 10/21/17 0000 Signed Impressions: CONCLUSION: Marked increase in left greater than right on her parenchymal opacity. Differen tial diagnosis is asymmetric pulmonary edema versus infection. CT Angiography 10/20/17 0000 Signed Impressions: CONCLUSION: 1. No evidence of pulmonary embolus. 2. Patchy mixed groundglass opacity and consolidation in the lungs bilaterally may represent infection or asymmetric edema. 3. Small bilateral pleural effusions. 4. Coronary artery calcifications. 5. Moderate-sized hiatal hernia nonspecific mild diffuse esophageal wall thick ening. Knee X-Ray 10/19/17 0000 Signed Impressions: CONCLUSION: Severe tricompartmental osteoarthritis with a large joint effusion. No definite acute fracture identified. Extremity Arterial Study 10/18/17 0000 Signed Impressions: CONCLUSION: 1. There is moderate vascular occlusive disease on the left and further charac terization with CT angiography and runoff is recommended. Head CT 10/17/17 1948 Signed Impressions: CONCLUSION: 1. No acute intracranial abnormalities. Foot X-Ray 10/17/17 0000 Signed Impressions: CONCLUSION: 1. Fifth toe proximal phalanx fracture again seen. 2. No significant interval change. Objective Remarks GENERAL: This is a well-nourished, well-developed patient, in no apparent distress. SKIN: Warm and dry. HEENT: Normocephalic. Pupils equal round and reactive. Nose without bleeding. Airway patent. NECK: Trachea midline. CARDIOVASCULAR: Regular rate and rhythm without murmurs, gallops, or rubs. RESPIRATORY: Coarse breath sounds, rhonchi. No wheezes, rales. GASTROINTESTINAL: Abdomen soft, non-tender, nondistended. Bowel Sounds normoactive x4. MUSCULOSKELETAL: Extremities without clubbing, cyanosis. Bilateral lower extremity edema, Rt knee edema +2, Rt Foot dsg CDI NEUROLOGICAL: Awake and alert. Oriented to place, person. No focal neuro deficit. Moves all extremities. Normal speech. Procedures status post right fifth toe, open, proximal phalanx fracture debridement and irrigation with laceration repair A/P Problem List: (1) Fall ICD Code: W19.XXXA - Unspecified fall, initial encounter Status: Acute (2) Open fracture of toe of right foot ICD Code: S92.911B - Unspecified fracture of right toe(s), initial encounter for open fracture Status: Acute (3) Alcohol intoxication ICD Code: F10.929 - Alcohol use, unspecified with intoxication, unspecified Status: Acute (4) Elevated LFTs ICD Code: R94.5 - Abnormal results of liver function studies Status: Acute Assessment and Plan 60-year-old female with a PMH of Anxiety, Depression, Bipolar Disorder, HTN, Hyperlipidemia, COPD and Alcohol Abuse who is brought to the ER by EMS after a fall with apparent toe injury Pneumonia, acute COPD exacerbation, patient is 2PPD smoker >20 years still requiring 4-6L NC -Reports of shortness of breath -CT angio no evidence of pulmonary embolus. Patchy mild ground glass opacity and consolidation in the lungs bilaterally may represent infection or asymmetric edema. Small bilateral pleural effusions. Coronary artery calcifications. Moderate-sized hiatal hernia nonspecific mild diffuse esophageal wall thickening. -Chest x-ray showed marked increase in left greater than right on her parenchymal opacity. Differential diagnosis is asymmetric pulmonary edema versus infection -Duo nebs, Symbicort. Continue Lasix IV today and tomorrow. Switch to p.o. if continues to need IV. Systolic function mildly reduced EF 45%. Dw DR Turcios, increase Solu-Medrol to 60 mg IV every 8 hours. -Ct Levaquin -Will start Ativan 0.5mg low dose for anxiety which can exacerbate SOB Status post fall Open toe fracture Status post right proximal fifth toe ORIF, I&D and repair of the laceration by Dr. Benedict -Pain medication oxycodone 5 and 10mg, baclofen -Physical therapy to eval and treat -Discussed with patient plan for DC to rehab instead of home for maximum benefit Right knee pain Right knee effusion -Xray ordered, joint effusion -Orthopedic consulted, joint aspiration has been done. Appreciate recommendations. -Gram stain culture moderate WBCs no organisms seen. No acid-fast bacilli seen, no fungal elements seen -Aspirate showed calcium pyrophosphate crystals. Recommend NSAIDs -Continue knee elevation leg elevation. Pain management Alcohol abuse, acute alcohol intoxication Elevated LFTs -Patient is counseled on alcohol use. Patient states she lives in a not so good environment, naming it as "[place]hetto" that is why she drinks. -Continue CIWA Protocol -DC Librium. Patient does not appear to be in withdrawals -Trend LFTs improving Bipolar disorder -Continue Prozac, Zyprexa DVT prop SCDs. Start Lovenox Discharge Planning Plan to DC to [facility] facility when clinically improved . Authorization to go to [facility] has been approved. Problem Qualifiers (1) Fall: Qualified Codes: W19.XXXA - Unspecified fall, initial encounter (2) Open fracture of toe of right foot: Qualified Codes: S92.414B - Nondisplaced fracture of proximal phalanx of right great toe, initial encounter for open fracture Rk Sagastume MD Oct 22, 2017 09:40
[2017-10-22 12:00] VITALS: BP 103/58; PULSE 96; RESP 22; TEMP 98.1; O2SAT 88
[2017-10-22] MEDS: RESP: ALBUTEROL 2.5 MG/IPRATROPIUM 0.5 MG NEB (PRN) NEB (12:48)
[2017-10-22] MEDS: LEVOFLOXACIN 750 MG PREMIX INJ 150 ML IV SCH (12:49)
[2017-10-22] MEDS: ENOXAPARIN SODIUM 40 MG/0.4 ML SYRINGE SQ SCH (16:34)
--- NOTE | 2017-10-22 19:14 | MB ---
cc: James Turcios MD, Arjun D MD DATE: 10/22/2017 REQUESTING PHYSICIAN: Dr. Sagastume REASON FOR CONSULTATION: Shortness of breath and hypoxia. HISTORY OF PRESENT ILLNESS: Ms. Osorio is a 61-year-old female with long history of smoking up to 2 packs a day and she drinks 8 or 9 beers a day, 3-4 times a week. Patient said that she was visiting her friend and she went to bathroom. At that time, she was drunk and she tripped and fell. She had injury to the toe. She was brought to the hospital. She was also noted to have effusion in the knee later on. The patient has shortness of breath. There is no fever or chills. No night sweats. Has occasional cough. She had a workup done. Her initial chest x-ray showed no acute infiltrate. She had a CTA of the chest done, which shows no evidence of pulmonary embolus. She has mixed patchy ground glass opacities and consolidation in the lungs bilaterally with small bilateral pleural effusions. Repeat chest x-ray done 10/21 showed worsening of her lung infiltrate, more on the left than the right lung. Her CBC showed WBC count 7.2, hemoglobin 10.7, hematocrit 31.4, MCV 105, platelet count 162. Sodium 139, potassium 3.0, chloride 90, CO2 of 29, BUN 6, creatinine 0.40. Blood gas on simple mask: PH 7.44, pCO2 of 41, pO2 of 65. INR is 1.1. Synovial fluid cultures are negative. PAST MEDICAL HISTORY: Significant for history of COPD, anxiety, depression, bipolar disorder, history of appendectomy and left knee surgery., shattered left arm, history of hernia surgery. CURRENT MEDICATIONS: 1. Solu-Medrol 60 mg q.8 hours. 2. Potassium 40 mEq a day. 3. Lovenox 40 mg a day. 4. Lorazepam 0.5 mg q.6 hours. 5. Levaquin 750 mg a day. 6. 7. Lasix 40 mg a day. 8. Symbicort 160/4.5 two puffs twice a day. 9. Mucinex 600 mg twice a day. 10. Albuterol Atrovent nebulizer treatment. 11. Oxycodone for pain, 12. Prozac 40 mg a day, 13. Pravastatin 40 mg a day 14. Baclofen 10 mg every 8 hours. 15. Zyprexa 20 mg 3 times a day. 16. Neurontin 600 mg 3 times a day. 17. Folic acid 1 mg a day. 18. Multivitamin once a day. 19. Thiamine 100 mg a day. ALLERGIES: ALLERGIC TO BUPROPION, HYDROXYZINE, NORTRIPTYLINE SOCIAL HISTORY: The patient has long history of smoking. Smokes 2 pack of cigarettes a day and drinks up to 9 beers. No drug abuse. 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 She is disabled. FAMILY HISTORY: She has two grown children. REVIEW OF SYSTEMS: Normally she is up, around and active. Denies any history of seizure or stroke. No DVT. She has bipolar disorder. She sees Dr. Vieira, psychiatrist. PHYSICAL EXAMINATION: GENERAL: Elderly female, mildly short of breath. VITAL SIGNS: Blood pressure 103/58, heart rate 96, respirations 22, temperature 98.1. HEENT: Pupils are equal and reactive to light. Oral mucosa and nasal mucosa normal. NECK: Supple. JVP not raised. CHEST: She has bilateral rales. HEART: S1, S2 normal. ABDOMEN: Benign. EXTREMITIES: No edema. IMPRESSION: 1. Bilateral patchy infiltrate, possible alveolitis or atypical pneumonia. She has significant hypoxia, unlikely congestive heart failure. Her ejection fraction is normal and her BNP is 167. 2. Chronic obstructive pulmonary disease. 3. Nicotine use. 4. Alcohol use. 5. Bipolar disorder. 6. Recent fall and knee effusion. PLAN: We will continue with IV Solu-Medrol. We will continue present antibiotics, supplement her oxygen, aerosol treatment. Subcutaneous Lovenox. I will check her mycoplasma and legionella titer. If she gets worse or does not improve, then we will consider bronchoscopy. Further treatment will depend on the course in the hospital. Thank you, Dr. Sagastume, for this consult. MD HEMANT García/ , 06:44 PM , 07:12 PM
[2017-10-22 19:25] VITALS: BP 94/63; PULSE 94; RESP 18; TEMP 98.2; O2SAT 90
[2017-10-22 21:10] VITALS: O2SAT 93
[2017-10-22] MEDS: OLANZapine 10 MG TAB PO SCH (21:30)
[2017-10-22] MEDS: methylPREDNISolone SOD SUCC 125 MG/2 ML VIAL IV PUSH SCH (21:31)
[2017-10-23] VITALS (8 sets, daily range): BP systolic 100–134; BP diastolic 63–91; PULSE 61–93; RESP 17–19; TEMP 97.2–98.2; O2SAT 88–97
[2017-10-23] MEDS: RESP: ALBUTEROL 2.5 MG/IPRATROPIUM 0.5 MG NEB (SCH) NEB ×4 (04:28→21:21)
[2017-10-23] MEDS: BACLOFEN 10 MG TAB PO SCH ×3 (05:46→22:50)
[2017-10-23] MEDS: methylPREDNISolone SOD SUCC 125 MG/2 ML VIAL IV PUSH SCH ×3 (05:48→22:53)
--- NOTE | 2017-10-23 08:02 | HHI.PR ---
Subjective Remarks Follow-up hypoxia. I am not any better on 5 L nasal cannula Objective Vitals Vital Signs Date Time Temp Pulse Resp B/P (MAP) Pulse Ox O2 Delivery O2 Flow Rate FiO2 10/23/17 04:00 98.1 76 18 108/65 (79) 88 10/23/17 00:15 97.2 66 18 134/89 (104) 94 10/22/17 21:10 93 Nasal Cannula 6.00 10/22/17 19:25 98.2 94 18 94/63 (73) 90 10/22/17 19:19 Nasal Cannula 4.00 10/22/17 12:00 98.1 96 22 103/58 (73) 88 10/22/17 09:25 92 Nasal Cannula 6.00 10/22/17 09:15 89 Nasal Cannula 4.00 I/O 10/22/17 10/22/17 10/22/17 10/23/17 10/23/17 10/23/17 07:00 15:00 23:00 07:00 15:00 23:00 Intake Total 620 ml 900 ml Output Total 1600 ml Balance 620 ml -1600 ml 900 ml Intake Oral 620 ml 600 ml IV Total 300 ml Output Urine Total 1600 ml # Voids 4 8 6 Result Diagram: 10/22/177 10/22/177 Imaging Last Impressions Chest X-Ray 10/21/17 0000 Signed Impressions: CONCLUSION: Marked increase in left greater than right on her parenchymal opacity. Differen tial diagnosis is asymmetric pulmonary edema versus infection. CT Angiography 10/20/17 0000 Signed Impressions: CONCLUSION: 1. No evidence of pulmonary embolus. 2. Patchy mixed groundglass opacity and consolidation in the lungs bilaterally may represent infection or asymmetric edema. 3. Small bilateral pleural effusions. 4. Coronary artery calcifications. 5. Moderate-sized hiatal hernia nonspecific mild diffuse esophageal wall thick ening. Knee X-Ray 10/19/17 0000 Signed Impressions: CONCLUSION: Severe tricompartmental osteoarthritis with a large joint effusion. No definite acute fracture identified. Extremity Arterial Study 10/18/17 0000 Signed Impressions: CONCLUSION: 1. There is moderate vascular occlusive disease on the left and further charac terization with CT angiography and runoff is recommended. Head CT 10/17/17 194 Signed Impressions: CONCLUSION: 1. No acute intracranial abnormalities. Foot X-Ray 10/17/17 0000 Signed Impressions: CONCLUSION: 1. Fifth toe proximal phalanx fracture again seen. 2. No significant interval change. Objective Remarks GENERAL: This is a well-nourished, well-developed patient, in no apparent distress. SKIN: Warm and dry. HEENT: Normocephalic. Pupils equal round and reactive. Nose without bleeding. Airway patent. NECK: Trachea midline. CARDIOVASCULAR: Regular rate and rhythm without murmurs, gallops, or rubs. RESPIRATORY: Coarse breath sounds, rhonchi. No wheezes GASTROINTESTINAL: Abdomen soft, non-tender, nondistended. Bowel Sounds normoactive x4. MUSCULOSKELETAL: Extremities without clubbing, cyanosis. Mild bilateral lower extremity edema, Rt knee edema +2, Rt Foot dsg CDI NEUROLOGICAL: Awake and alert. Oriented to place, person. No focal neuro deficit. Moves all extremities. Normal speech. Procedures status post right fifth toe, open, proximal phalanx fracture debridement and irrigation with laceration repair A/P Problem List: (1) Fall ICD Code: W19.XXXA - Unspecified fall, initial encounter Status: Acute (2) Open fracture of toe of right foot ICD Code: S92.911B - Unspecified fracture of right toe(s), initial encounter for open fracture Status: Acute (3) Alcohol intoxication ICD Code: F10.929 - Alcohol use, unspecified with intoxication, unspecified Status: Acute (4) Elevated LFTs ICD Code: R94.5 - Abnormal results of liver function studies Status: Acute Assessment and Plan 60-year-old female with a PMH of Anxiety, Depression, Bipolar Disorder, HTN, Hyperlipidemia, COPD and Alcohol Abuse who is brought to the ER by EMS after a fall with apparent toe injury Pneumonia, acute COPD exacerbation, patient is 2PPD smoker >20 years still requiring 4-6L NC -Reports of shortness of breath -CT angio no evidence of pulmonary embolus. Patchy mild ground glass opacity and consolidation in the lungs bilaterally may represent infection or asymmetric edema. Small bilateral pleural effusions. Coronary artery calcifications. Moderate-sized hiatal hernia nonspecific mild diffuse esophageal wall thickening. -Chest x-ray showed marked increase in left greater than right on her parenchymal opacity. Differential diagnosis is asymmetric pulmonary edema versus infection. Follow-up repeat chest x-ray -Duo nebs, Symbicort. Continue Lasix IV until tomorrow. Switch to p.o. if continues to need IV. Systolic function mildly reduced EF 45%. Dw DR Turcios, increased Solu-Medrol to 60 mg IV every 8 hours. May need bronchoscopy -Ct Levaquin check pneumococcal and Legionella urinary antigen. -Will start Ativan 0.5mg low dose for anxiety which can exacerbate SOB Status post fall Open toe fracture Status post right proximal fifth toe ORIF, I&D and repair of the laceration by Dr. Benedict -Pain medication oxycodone 5 and 10mg, baclofen -Physical therapy to eval and treat -Discussed with patient plan for DC to rehab instead of home for maximum benefit Right knee pain Right knee effusion -Xray ordered, joint effusion -Orthopedic consulted, joint aspiration has been done. Appreciate recommendations. -Gram stain culture moderate WBCs no organisms seen. No acid-fast bacilli seen, no fungal elements seen -Aspirate showed calcium pyrophosphate crystals. Recommend NSAIDs -Continue knee elevation leg elevation. Pain management Alcohol abuse, acute alcohol intoxication Elevated LFTs -Patient is counseled on alcohol use. Patient states she lives in a not so good environment, naming it as "ghetto" that is why she drinks. -Continue CIWA Protocol -DC Librium. Patient does not appear to be in withdrawals -Trend LFTs improving Bipolar disorder -Continue Prozac, Zyprexa DVT prop SCDs. Start Lovenox Discharge Planning Plan to DC to residential facility when clinically improved . Authorization to go to [facility] has been approved. Problem Qualifiers (1) Fall: Qualified Codes: W19.XXXA - Unspecified fall, initial encounter (2) Open fracture of toe of right foot: Qualified Codes: S92.414B - Nondisplaced fracture of proximal phalanx of right great toe, initial encounter for open fracture Rk Sagastume MD Oct 23, 2017 08:02
[2017-10-23 08:12] LABS: AUTOMATED NEUTROPHIL # 4.2 TH/MM3 (1.8-7.7); BASOPHIL % 0.2 % (0.0-2.0); EOSINOPHIL % 0.1 % (0.0-4.0); HEMATOCRIT 34.1 % (35.0-46.0); HEMOGLOBIN 11.4 GM/DL (11.6-15.3); LYMPH % 17.4 % (9.0-44.0); MEAN CELL VOLUME 105.4 FL (80.0-100.0); MEAN CORPUSCULAR HEMOGLOBIN 35.3 PG (27.0-34.0); MEAN CORPUSCULAR HGB CONC 33.5 % (32.0-36.0); MEAN PLATELET VOLUME 9.1 FL (7.0-11.0); MONOCYTE # 0.4 TH/MM3 (0-0.9); NEUT % 75.3 % (16.0-70.0); PLATELET COUNT 188 TH/MM3 (150-450); RED BLOOD COUNT 3.24 MIL/MM3 (4.00-5.30); RED CELL DISTRIBUTION WIDTH 16.4 % (11.6-17.2); WHITE BLOOD COUNT 5.6 TH/MM3 (4.0-11.0)
[2017-10-23 08:43] LABS: BICARBONATE 34.2 MEQ/L (21.0-32.0); CALCIUM 8.8 MG/DL (8.5-10.1); CREATININE 0.44 MG/DL (0.50-1.00)
[2017-10-23] MEDS: GABAPENTIN 300 MG CAP PO SCH ×3 (09:47→17:33)
[2017-10-23] MEDS: LACTOBACILLUS ACIDOPHILUS TAB PO SCH (09:47)
[2017-10-23] MEDS: guaiFENesin E.R. 600 MG TAB PO SCH ×2 (09:48→22:50)
[2017-10-23] MEDS: DOCUSATE SODIUM 50 MG/SENNA 8.6 MG TAB PO SCH ×2 (09:48→22:50)
[2017-10-23] MEDS: FLUoxetine HCL 20 MG CAP PO SCH (09:48)
[2017-10-23] MEDS: PRAVASTATIN SOD 40 MG TAB PO SCH (09:48)
[2017-10-23] MEDS: THIAMINE HCL 100 MG TAB PO SCH (09:48)
[2017-10-23] MEDS: POTASSIUM CHLORIDE 20 MEQ CONTROLLED RELEASE TAB PO SCH (09:48)
[2017-10-23] MEDS: SODIUM CHLORIDE 0.9% FLUSH 10 ML FLUSH IV FLUSH SCH ×2 (09:49→20:13)
[2017-10-23] MEDS: FUROSEMIDE 40 MG/4 ML VIAL IV PUSH SCH (09:49)
[2017-10-23] MEDS: TIOTROPIUM BROMIDE 18 MCG INH INH SCH (10:12)
[2017-10-23] MEDS: BUDESONIDE-FORMOTEROL 160/4.5 MCG INHALER INH SCH ×2 (10:12→22:56)
--- NOTE | 2017-10-23 10:19 | HHI.PR ---
Subjective Remarks Patient reports worsening SO, chest congestion on 5L oxygen. Objective Vital Signs Vital Signs Date Time Temp Pulse Resp B/P (MAP) Pulse Ox O2 Delivery O2 Flow Rate FiO2 10/23/17 09:22 97 Nasal Cannula 5.00 10/23/17 08:00 97.4 61 19 128/79 (95) 94 10/23/17 04:00 98.1 76 18 108/65 (79) 88 10/23/17 00:15 97.2 66 18 134/89 (104) 94 10/22/17 21:10 93 Nasal Cannula 6.00 10/22/17 19:25 98.2 94 18 94/63 (73) 90 10/22/17 19:19 Nasal Cannula 4.00 10/22/17 12:00 98.1 96 22 103/58 (73) 88 I/O 10/22/17 10/22/17 10/22/17 10/23/17 10/23/17 10/23/17 07:00 15:00 23:00 07:00 15:00 23:00 Intake Total 620 ml 900 ml Output Total 1600 ml Balance 620 ml -1600 ml 900 ml Intake Oral 620 ml 600 ml IV Total 300 ml Output Urine Total 1600 ml # Voids 4 8 6 Result Diagram: 10/23/17 0631 10/23/17 0631 Other Results Last Impressions Chest X-Ray 10/21/17 Signed Impressions: CONCLUSION: Marked increase in left greater than right on her parenchymal opacity. Differen tial diagnosis is asymmetric pulmonary edema versus infection. CT Angiography 10/20/17 Signed Impressions: CONCLUSION: 1. No evidence of pulmonary embolus. 2. Patchy mixed groundglass opacity and consolidation in the lungs bilaterally may represent infection or asymmetric edema. 3. Small bilateral pleural effusions. 4. Coronary artery calcifications. 5. Moderate-sized hiatal hernia nonspecific mild diffuse esophageal wall thick ening. Knee X-Ray 10/19/17 Signed Impressions: CONCLUSION: Severe tricompartmental osteoarthritis with a large joint effusion. No definite acute fracture identified. Extremity Arterial Study 10/18/17 Signed Impressions: CONCLUSION: 1. There is moderate vascular occlusive disease on the left and further charac terization with CT angiography and runoff is recommended. Head CT 10/17/171947 Signed Impressions: CONCLUSION: 1. No acute intracranial abnormalities. Foot X-Ray 10/17/17 0000 Signed Impressions: CONCLUSION: 1. Fifth toe proximal phalanx fracture again seen. 2. No significant interval change. Objective Remarks GENERAL: Patient is 61 yo on 5L oxygen SKIN: Warm and dry. HEAD: Normocephalic. EYES: No scleral icterus. No injection or drainage. NECK: Supple, trachea midline. No JVD or lymphadenopathy. CARDIOVASCULAR: Regular rate and rhythm without murmurs, gallops, or rubs. RESPIRATORY: Coarse BS, rhonchus GASTROINTESTINAL: Abdomen soft, non-tender, nondistended. MUSCULOSKELETAL: No cyanosis, or edema. Neuro: Awake and alert A/P Assessment and Plan 1)Resp Insuff 2)B/L pulm infiltrates 3)COPD 4)Tobacco use, ETOH use 5)Bipolar disorder Plan Wean down oxygen as eric keep sats >92% Bronchodilators ( Duoneb, Symbicort, Spiriva) Continue with IV steroids- Solumederol 60mg Q8 NIPPV PRN for resp distress CTA chest: No PE, B/L mixed ground glass opacity/consolidation Continue with abx- Levaquin- monitor for signs of infections ( Fever, WBC) Check strep pneumonia and Legionella urinary Ag Check Mycoplasma, CXR today If no improvements then will need bronch . Evaluate for home oxygen prior to discharge. PFT as outpatient Continue treatment plan Julia Cao MD Oct 23, 2017 10:19
--- NOTE | 2017-10-23 10:45 | RADRPT ---
EXAM DATE: 10/23/2017 10:40 AM EDT AGE/SEX: 61 years / Female INDICATIONS: Shortness of breath. CLINICAL DATA: This is the patient's subsequent encounter. Patient reports that signs and symptoms h ave been present for 4 - 6 days and indicates a pain score of 0/10. MEDICAL/SURGICAL HISTORY: . Hypertension. Chronic obstructive pulmonary disease None. COMPARISON: [facility] [place], CHEST SINGLE AP, 10/21/2017. . FINDINGS: Portable AP view of the chest demonstrate a normal-sized cardiac silhouette. Lungs are underinflated. There are interstitial and mild airspace opacities bilaterally, more prominent in the upper lung zon es. However, these have improved from the prior study. No pleural effusion or pneumothorax is identif ied. Bones demonstrate no acute finding. There are old left rib fractures that appear healed. Left pr oximal humerus hardware is partially visualized. CONCLUSION: Improved aeration of the lungs with partial clearing of the of bilateral consolidation documented pre viously. There is continued mild interstitial and airspace opacities bilaterally primarily in the upp er lung zones. Electronically signed by: Constantino Lee MD 10/23/2017 10:44 AM EDT
[2017-10-23] MEDS ORDERED: POTASSIUM CHLORIDE 20 MEQ CONTROLLED RELEASE TAB PO ONE (11:00)
[2017-10-23] MEDS: LEVOFLOXACIN 750 MG PREMIX INJ 150 ML IV SCH (12:00)
[2017-10-23] MEDS: ENOXAPARIN SODIUM 40 MG/0.4 ML SYRINGE SQ SCH (15:00)
[2017-10-23] MEDS: METOCLOPRAMIDE HCL 10 MG/2 ML VIAL IV PUSH PRN (20:03)
[2017-10-23] MEDS: OLANZapine 10 MG TAB PO SCH (22:51)
[2017-10-24] VITALS (7 sets, daily range): BP systolic 103–154; BP diastolic 67–96; PULSE 63–88; RESP 17–19; TEMP 97.9–98.1; O2SAT 93–99
[2017-10-24] MEDS: RESP: ALBUTEROL 2.5 MG/IPRATROPIUM 0.5 MG NEB (SCH) NEB (03:18)
[2017-10-24] MEDS: BACLOFEN 10 MG TAB PO SCH ×3 (05:57→20:42)
[2017-10-24] MEDS: methylPREDNISolone SOD SUCC 125 MG/2 ML VIAL IV PUSH SCH ×3 (05:59→20:14)
[2017-10-24 06:09] LABS: BICARBONATE 33.4 MEQ/L (21.0-32.0); CALCIUM 8.3 MG/DL (8.5-10.1); CREATININE 0.37 MG/DL (0.50-1.00)
[2017-10-24] MEDS: POTASSIUM CHLORIDE 20 MEQ CONTROLLED RELEASE TAB PO SCH (08:38)
[2017-10-24] MEDS: GABAPENTIN 300 MG CAP PO SCH ×3 (08:38→18:11)
[2017-10-24] MEDS: SODIUM CHLORIDE 0.9% FLUSH 10 ML FLUSH IV FLUSH SCH ×2 (08:38→19:55)
[2017-10-24] MEDS: FLUoxetine HCL 20 MG CAP PO SCH (08:38)
[2017-10-24] MEDS: DOCUSATE SODIUM 50 MG/SENNA 8.6 MG TAB PO SCH ×2 (08:38→19:56)
[2017-10-24] MEDS: PRAVASTATIN SOD 40 MG TAB PO SCH (08:38)
[2017-10-24] MEDS: LACTOBACILLUS ACIDOPHILUS TAB PO SCH (08:38)
[2017-10-24] MEDS: THIAMINE HCL 100 MG TAB PO SCH (08:38)
[2017-10-24] MEDS: guaiFENesin E.R. 600 MG TAB PO SCH ×2 (08:39→19:55)
[2017-10-24] MEDS: TIOTROPIUM BROMIDE 18 MCG INH INH SCH (08:39)
[2017-10-24] MEDS: BUDESONIDE-FORMOTEROL 160/4.5 MCG INHALER INH SCH ×2 (08:39→19:53)
--- NOTE | 2017-10-24 11:05 | HHI.PR ---
Subjective Remarks Patient feels somewhat better today on 4L oxygen. Afebrile. Objective Vital Signs Vital Signs Date Time Temp Pulse Resp B/P (MAP) Pulse Ox O2 Delivery O2 Flow Rate FiO2 10/24/17 09:32 95 Nasal Cannula 4.00 10/24/17 08:50 93 Nasal Cannula 4.00 Humidified 10/24/17 08:08 98.0 81 17 154/96 (115) 93 10/24/17 04:00 98.0 63 18 126/80 (95) 93 10/24/17 00:01 98.0 77 19 118/82 (94) 93 10/23/17 21:21 92 Nasal Cannula 4.00 10/23/17 20:00 98.2 90 18 134/91 (105) 93 10/23/17 19:15 Nasal Cannula 5.00 10/23/17 16:09 98.0 93 17 112/79 (90) 96 10/23/17 12:00 97.8 71 18 100/63 (75) 97 I/O 10/23/17 10/23/17 10/23/17 10/24/17 10/24/17 10/24/17 07:00 15:00 23:00 07:00 15:00 23:00 Intake Total 900 ml 1200 ml Balance 900 ml 1200 ml Intake Oral 600 ml 1200 ml IV Total 300 ml # Voids 6 5 4 # Bowel Movements 0 Result Diagram: 10/23/17 0631 10/24/17 0509 Other Results Last Impressions Chest X-Ray 10/23/17 0000 Signed Impressions: CONCLUSION: Improved aeration of the lungs with partial clearing of the of bilateral consol idation documented previously. There is continued mild interstitial and airspac e opacities bilaterally primarily in the upper lung zones. CT Angiography 10/20/17 0000 Signed Impressions: CONCLUSION: 1. No evidence of pulmonary embolus. 2. Patchy mixed groundglass opacity and consolidation in the lungs bilaterally may represent infection or asymmetric edema. 3. Small bilateral pleural effusions. 4. Coronary artery calcifications. 5. Moderate-sized hiatal hernia nonspecific mild diffuse esophageal wall thick ening. Knee X-Ray 10/19/17 0000 Signed Impressions: CONCLUSION: Severe tricompartmental osteoarthritis with a large joint effusion. No definite acute fracture identified. Extremity Arterial Study 10/18/17 0000 Signed Impressions: CONCLUSION: 1. There is moderate vascular occlusive disease on the left and further charac terization with CT angiography and runoff is recommended. Head CT 10/17/17 1948 Signed Impressions: CONCLUSION: 1. No acute intracranial abnormalities. Foot X-Ray 10/17/17 0000 Signed Impressions: CONCLUSION: 1. Fifth toe proximal phalanx fracture again seen. 2. No significant interval change. Objective Remarks GENERAL: Patient is 61 yo on 4L oxygen SKIN: Warm and dry. HEAD: Normocephalic. EYES: No scleral icterus. No injection or drainage. NECK: Supple, trachea midline. No JVD or lymphadenopathy. CARDIOVASCULAR: Regular rate and rhythm without murmurs, gallops, or rubs. RESPIRATORY: Coarse BS, GASTROINTESTINAL: Abdomen soft, non-tender, nondistended. MUSCULOSKELETAL: No cyanosis, or edema. Neuro: Awake and alert A/P Assessment and Plan 1)Resp Insuff 2)B/L pulm infiltrates 3)COPD 4)Tobacco use, ETOH use 5)Bipolar disorder Plan Continue to wean down oxygen as eric keep sats >92% Bronchodilators ( DuoNeb, Symbicort, Spiriva) Continue with IV steroids- Solumederol 60mg Q8 NIPPV PRN for resp distress CXR yesterday- Improved aeration of the lungs with partial clearing of the of bilateral consolidation documented previously. There is continued mild interstitial and airspace opacities bilaterally primarily in the upper lung zones. CTA chest: No PE, B/L mixed ground glass opacity/consolidation Continue with abx- Levaquin- monitor for signs of infections ( Fever, WBC) strep pneumonia and Legionella urinary Ag negative Follow up on Mycoplasma serology Evaluate for home oxygen prior to discharge. PFT as outpatient Continue treatment plan Julia Cao MD Oct 24, 2017 11:05
[2017-10-24] MEDS: LEVOFLOXACIN 750 MG PREMIX INJ 150 ML IV SCH (12:52)
--- NOTE | 2017-10-24 14:58 | HHI.PR ---
Subjective Remarks Pt states that she feels better. still has a cough and has trouble coughing up her sputum. Denies any CP/worsening SOB/n/v She tells me that she is on xanax 0.5mg po BID as needed and doesn't like the ativan given here. Objective Vitals Vital Signs Date Time Temp Pulse Resp B/P (MAP) Pulse Ox O2 Delivery O2 Flow Rate FiO2 10/24/17 12:19 97.9 66 18 127/86 (100) 99 10/24/17 09:32 95 Nasal Cannula 4.00 10/24/17 08:50 93 Nasal Cannula 4.00 Humidified 10/24/17 08:08 98.0 81 17 154/96 (115) 93 10/24/17 04:00 98.0 63 18 126/80 (95) 93 10/24/17 00:01 98.0 77 19 118/82 (94) 93 10/23/17 21:21 92 Nasal Cannula 4.00 10/23/17 20:00 98.2 90 18 134/91 (105) 93 10/23/17 19:15 Nasal Cannula 5.00 10/23/17 16:09 98.0 93 17 112/79 (90) 96 I/O 10/23/17 10/23/17 10/23/17 10/24/17 10/24/17 10/24/17 06:59 14:59 22:59 06:59 14:59 22:59 Intake Total 900 ml 1200 ml Balance 900 ml 1200 ml Intake Oral 600 ml 1200 ml IV Total 300 ml # Voids 6 5 4 # Bowel Movements 0 1 Result Diagram: 10/23/17 0631 10/24/17 0509 Imaging Last Impressions Chest X-Ray 10/23/17 0000 Signed Impressions: CONCLUSION: Improved aeration of the lungs with partial clearing of the of bilateral consol idation documented previously. There is continued mild interstitial and airspac e opacities bilaterally primarily in the upper lung zones. CT Angiography 10/20/17 0000 Signed Impressions: CONCLUSION: 1. No evidence of pulmonary embolus. 2. Patchy mixed groundglass opacity and consolidation in the lungs bilaterally may represent infection or asymmetric edema. 3. Small bilateral pleural effusions. 4. Coronary artery calcifications. 5. Moderate-sized hiatal hernia nonspecific mild diffuse esophageal wall thick ening. Knee X-Ray 10/19/17 0000 Signed Impressions: CONCLUSION: Severe tricompartmental osteoarthritis with a large joint effusion. No definite acute fracture identified. Extremity Arterial Study 10/18/17 0000 Signed Impressions: CONCLUSION: 1. There is moderate vascular occlusive disease on the left and further charac terization with CT angiography and runoff is recommended. Head CT 10/17/171947 Signed Impressions: CONCLUSION: 1. No acute intracranial abnormalities. Foot X-Ray 10/17/17 0000 Signed Impressions: CONCLUSION: 1. Fifth toe proximal phalanx fracture again seen. 2. No significant interval change. Objective Remarks GENERAL: sitting up on recliner chair, NC in place. appears comfortable. CARDIOVASCULAR: Regular rate and rhythm without murmurs RESPIRATORY: Coarse breath sounds, rhonchi. No wheezes GASTROINTESTINAL: Abdomen soft, non-tender, nondistended. MUSCULOSKELETAL: Mild bilateral lower extremity edema, Rt knee edema +2, Rt Foot dsg CDI NEUROLOGICAL: Awake and alert. Moves all extremities. Normal speech. Procedures status post right fifth toe, open, proximal phalanx fracture debridement and irrigation with laceration repair A/P Problem List: (1) Fall ICD Code: W19.XXXA - Unspecified fall, initial encounter Status: Acute (2) Open fracture of toe of right foot ICD Code: S92.911B - Unspecified fracture of right toe(s), initial encounter for open fracture Status: Acute (3) Alcohol intoxication ICD Code: F10.929 - Alcohol use, unspecified with intoxication, unspecified Status: Acute (4) Elevated LFTs ICD Code: R94.5 - Abnormal results of liver function studies Status: Acute Assessment and Plan 60-year-old female with a PMH of Anxiety, Depression, Bipolar Disorder, HTN, Hyperlipidemia, COPD and Alcohol Abuse who is brought to the ER by EMS after a fall with apparent toe injury Pneumonia, acute COPD exacerbation, patient is 2PPD smoker >20 years still requiring 4 L NC, continue to wean -Reports of shortness of breath -CT angio no evidence of pulmonary embolus. Patchy mild ground glass opacity and consolidation in the lungs bilaterally may represent infection or asymmetric edema. Small bilateral pleural effusions. Coronary artery calcifications. Moderate-sized hiatal hernia nonspecific mild diffuse esophageal wall thickening. -Chest x-ray showed marked increase in left greater than right on her parenchymal opacity. Differential diagnosis is asymmetric pulmonary edema versus infection. Follow-up repeat chest x-ray -Duo nebs, Symbicort. s.p Lasix IV. Switch to 40mg po daily. Systolic function mildly reduced EF 45%. per pulm continue Solu-Medrol to 60 mg IV every 8 hours. May need bronchoscopy -Ct Levaquin. pneumococcal/mycoplasma and Legionella urinary antigen pending -switched to xanax 0.5mg po BID prn per pt's request. d/c ativan Status post fall Open toe fracture Status post right proximal fifth toe ORIF, I&D and repair of the laceration by Dr. Benedict -Pain medication oxycodone 5 and 10mg, baclofen -Physical therapy to eval and treat -Discussed with patient plan for DC to rehab instead of home for maximum benefit Right knee pain Right knee effusion -Xray ordered, joint effusion -Orthopedic consulted, joint aspiration has been done. Appreciate recommendations. -Gram stain culture moderate WBCs no organisms seen. No acid-fast bacilli seen, no fungal elements seen -Aspirate showed calcium pyrophosphate crystals. Recommend NSAIDs -Continue knee elevation leg elevation. Pain management Alcohol abuse, acute alcohol intoxication Elevated LFTs -Patient is counseled on alcohol use. Patient states she lives in a not so good environment, naming it as "ghetto" that is why she drinks. -Continue CIWA Protocol -DC Librium. Patient does not appear to be in withdrawals -Trend LFTs improving Bipolar disorder -Continue Prozac, Zyprexa DVT prop SCDs. Lovenox Discharge Planning continue to wean steroids and transition to po per pulm recs. added acapella, encouraged IS use. walk test to be ordered close to d/c Problem Qualifiers (1) Fall: Qualified Codes: W19.XXXA - Unspecified fall, initial encounter (2) Open fracture of toe of right foot: Qualified Codes: S92.414B - Nondisplaced fracture of proximal phalanx of right great toe, initial encounter for open fracture Skylar Lake MD Oct 24, 2017 14:58
[2017-10-24] MEDS: ENOXAPARIN SODIUM 40 MG/0.4 ML SYRINGE SQ SCH (15:48)
[2017-10-24] MEDS: ALPRAZolam 0.5 MG TAB PO PRN (18:11)
[2017-10-24] MEDS: OLANZapine 10 MG TAB PO SCH (19:55)
[2017-10-24] MEDS: METOCLOPRAMIDE HCL 10 MG/2 ML VIAL IV PUSH PRN (20:02)
[2017-10-24] MEDS: CALCIUM CARBONATE 500 MG CHEWABLE TAB CHEW PRN (23:51)
[2017-10-25] VITALS (8 sets, daily range): BP systolic 88–159; BP diastolic 58–96; PULSE 65–72; RESP 15–27; TEMP 97.2–97.9; O2SAT 92–100
[2017-10-25] MEDS: methylPREDNISolone SOD SUCC 125 MG/2 ML VIAL IV PUSH SCH (05:24)
[2017-10-25] MEDS: BACLOFEN 10 MG TAB PO SCH ×3 (05:24→22:13)
[2017-10-25] MEDS: LACTOBACILLUS ACIDOPHILUS TAB PO SCH (07:54)
[2017-10-25] MEDS: DOCUSATE SODIUM 50 MG/SENNA 8.6 MG TAB PO SCH ×2 (07:55→20:23)
[2017-10-25] MEDS: ALPRAZolam 0.5 MG TAB PO PRN ×2 (07:55→22:12)
[2017-10-25] MEDS: PRAVASTATIN SOD 40 MG TAB PO SCH (07:55)
[2017-10-25] MEDS: guaiFENesin E.R. 600 MG TAB PO SCH ×2 (07:55→20:23)
[2017-10-25] MEDS: GABAPENTIN 300 MG CAP PO SCH ×3 (07:55→17:23)
[2017-10-25] MEDS: FLUoxetine HCL 20 MG CAP PO SCH (07:55)
[2017-10-25] MEDS: THIAMINE HCL 100 MG TAB PO SCH (07:55)
[2017-10-25] MEDS: FUROSEMIDE 40 MG TAB PO SCH (07:56)
[2017-10-25] MEDS: POTASSIUM CHLORIDE 20 MEQ CONTROLLED RELEASE TAB PO SCH (07:56)
[2017-10-25] MEDS: SODIUM CHLORIDE 0.9% FLUSH 10 ML FLUSH IV FLUSH SCH ×2 (07:56→20:24)
[2017-10-25] MEDS: BUDESONIDE-FORMOTEROL 160/4.5 MCG INHALER INH SCH ×2 (09:00→20:24)
[2017-10-25] MEDS: TIOTROPIUM BROMIDE 18 MCG INH INH SCH (09:00)
--- NOTE | 2017-10-25 09:45 | HHI.PR ---
Subjective Remarks Pt states she is feeling better, she coughing a lot and wheezing. no CP/N/V Objective Vitals Vital Signs Date Time Temp Pulse Resp B/P (MAP) Pulse Ox O2 Delivery O2 Flow Rate FiO2 10/25/17 08:00 97.6 67 27 158/92 (114) 92 10/25/17 00:01 97.9 69 19 159/96 (117) 93 10/24/17 21:38 Nasal Cannula 4.00 Humidified 10/24/17 20:00 97.9 84 19 103/67 (79) 96 10/24/17 15:56 98.1 88 17 132/94 (107) 98 10/24/17 12:19 97.9 66 18 127/86 (100) 99 I/O 10/24/17 10/24/17 10/24/17 10/25/17 10/25/17 10/25/17 07:00 15:00 23:00 07:00 15:00 23:00 Intake Total 1200 ml Balance 1200 ml Intake Oral 1200 ml # Voids 4 7 9 # Bowel Movements 1 3 3 Result Diagram: 10/23/17 0631 10/24/17 0509 Imaging Last Impressions Chest X-Ray 10/23/17 Signed Impressions: CONCLUSION: Improved aeration of the lungs with partial clearing of the of bilateral consol idation documented previously. There is continued mild interstitial and airspac e opacities bilaterally primarily in the upper lung zones. CT Angiography 10/20/17 Signed Impressions: CONCLUSION: 1. No evidence of pulmonary embolus. 2. Patchy mixed groundglass opacity and consolidation in the lungs bilaterally may represent infection or asymmetric edema. 3. Small bilateral pleural effusions. 4. Coronary artery calcifications. 5. Moderate-sized hiatal hernia nonspecific mild diffuse esophageal wall thick ening. Knee X-Ray 10/19/17 Signed Impressions: CONCLUSION: Severe tricompartmental osteoarthritis with a large joint effusion. No definite acute fracture identified. Extremity Arterial Study 10/18/17 Signed Impressions: CONCLUSION: 1. There is moderate vascular occlusive disease on the left and further charac terization with CT angiography and runoff is recommended. Head CT 10/17/171947 Signed Impressions: CONCLUSION: 1. No acute intracranial abnormalities. Foot X-Ray 10/17/17 Signed Impressions: CONCLUSION: 1. Fifth toe proximal phalanx fracture again seen. 2. No significant interval change. Objective Remarks GENERAL: sitting up on recliner chair, NC in place. appears comfortable. eating breakfast CARDIOVASCULAR: Regular rate and rhythm without murmurs RESPIRATORY: Coarse breath sounds, rhonchi. + mild exp wheezes GASTROINTESTINAL: Abdomen soft, non-tender, nondistended. MUSCULOSKELETAL: Mild bilateral lower extremity edema, Rt knee edema +2, Rt Foot dsg CDI NEUROLOGICAL: Awake and alert. Moves all extremities. Normal speech. Procedures status post right fifth toe, open, proximal phalanx fracture debridement and irrigation with laceration repair A/P Problem List: (1) Fall ICD Code: W19.XXXA - Unspecified fall, initial encounter Status: Acute (2) Open fracture of toe of right foot ICD Code: S92.911B - Unspecified fracture of right toe(s), initial encounter for open fracture Status: Acute (3) Alcohol intoxication ICD Code: F10.929 - Alcohol use, unspecified with intoxication, unspecified Status: Acute (4) Elevated LFTs ICD Code: R94.5 - Abnormal results of liver function studies Status: Acute Assessment and Plan 60-year-old female with a PMH of Anxiety, Depression, Bipolar Disorder, HTN, Hyperlipidemia, COPD and Alcohol Abuse who is brought to the ER by EMS after a fall with apparent toe injury Pneumonia, acute COPD exacerbation, patient is 2PPD smoker >20 years still requiring 4 L NC, continue to wean -Reports of shortness of breath -CT angio no evidence of pulmonary embolus. Patchy mild ground glass opacity and consolidation in the lungs bilaterally may represent infection or asymmetric edema. Small bilateral pleural effusions. Coronary artery calcifications. Moderate-sized hiatal hernia nonspecific mild diffuse esophageal wall thickening. -Chest x-ray showed marked increase in left greater than right on her parenchymal opacity. Differential diagnosis is asymmetric pulmonary edema versus infection. Follow-up repeat chest x-ray -Duo nebs, Symbicort. s.p Lasix IV. Switch to 40mg po daily. Systolic function mildly reduced EF 45%. On IV Solu-Medrol but will decrease to 40 mg IV every 8 hours. May need bronchoscopy -Ct Levaquin. pneumococcal/mycoplasma and Legionella urinary antigen pending -on xanax 0.5mg po BID prn per pt's request. d/c ativan Status post fall Open toe fracture Status post right proximal fifth toe ORIF, I&D and repair of the laceration by Dr. Benedict -Pain medication oxycodone 5 and 10mg, baclofen -Physical therapy to eval and treat -Discussed with patient plan for DC to rehab instead of home for maximum benefit Right knee pain Right knee effusion -Xray ordered, joint effusion -Orthopedic consulted, joint aspiration has been done. Appreciate recommendations. -Gram stain culture moderate WBCs no organisms seen. No acid-fast bacilli seen, no fungal elements seen -Aspirate showed calcium pyrophosphate crystals. Recommend NSAIDs -Continue knee elevation leg elevation. Pain management Alcohol abuse, acute alcohol intoxication Elevated LFTs -Patient is counseled on alcohol use. Patient states she lives in a not so good environment, naming it as "[place]hetto" that is why she drinks. -Continue CIWA Protocol -DC Librium. Patient does not appear to be in withdrawals -Trend LFTs improving Bipolar disorder -Continue Prozac, Zyprexa DVT prop SCDs. Lovenox Discharge Planning continue to wean steroids and transition to po per pulm recs. encourage acapella and IS use. walk test to be ordered close to d/c Problem Qualifiers (1) Fall: Qualified Codes: W19.XXXA - Unspecified fall, initial encounter (2) Open fracture of toe of right foot: Qualified Codes: S92.414B - Nondisplaced fracture of proximal phalanx of right great toe, initial encounter for open fracture Skylar Lake MD Oct 25, 2017 09:45
[2017-10-25] MEDS: methylPREDNISolone SOD SUCC 40 MG/1 ML VIAL IV PUSH SCH ×2 (13:33→22:13)
[2017-10-25] MEDS: LEVOFLOXACIN 750 MG PREMIX INJ 150 ML IV SCH (13:34)
[2017-10-25] MEDS: ENOXAPARIN SODIUM 40 MG/0.4 ML SYRINGE SQ SCH (13:35)
[2017-10-25] MEDS: RESP: ALBUTEROL 2.5 MG/IPRATROPIUM 0.5 MG NEB (SCH) NEB ×2 (13:55→19:03)
--- NOTE | 2017-10-25 19:42 | HHI.PR ---
Subjective Remarks Patient feels somewhat better today on 4L oxygen. Afebrile. Breathing better CXR improving infilt Objective Vital Signs Vital Signs Date Time Temp Pulse Resp B/P (MAP) Pulse Ox O2 Delivery O2 Flow Rate FiO2 10/25/17 16:00 97.8 71 15 94/58 (70) 94 10/25/17 15:37 99 21 10/25/17 14:01 99 21 10/25/17 12:07 98 Nasal Cannula 2.00 10/25/17 12:00 97.3 72 15 88/60 (69) 100 10/25/17 08:00 97.6 67 27 158/92 (114) 92 10/25/17 00:01 97.9 69 19 159/96 (117) 93 10/24/17 21:38 Nasal Cannula 4.00 Humidified 10/24/17 20:00 97.9 84 19 103/67 (79) 96 I/O 10/24/17 10/24/17 10/24/17 10/25/17 10/25/17 10/25/17 07:00 15:00 23:00 07:00 15:00 23:00 Intake Total 1200 ml 720 ml Balance 1200 ml 720 ml Intake Oral 1200 ml 720 ml # Voids 4 7 9 6 # Bowel Movements 1 3 3 4 Result Diagram: 10/23/17 0631 10/24/17 0509 Objective Remarks GENERAL: Patient is 61 yo on 4L oxygen SKIN: Warm and dry. HEAD: Normocephalic. EYES: No scleral icterus. No injection or drainage. NECK: Supple, trachea midline. No JVD or lymphadenopathy. CARDIOVASCULAR: Regular rate and rhythm without murmurs, gallops, or rubs. RESPIRATORY: Coarse BS, GASTROINTESTINAL: Abdomen soft, non-tender, nondistended. MUSCULOSKELETAL: No cyanosis, or edema. Neuro: Awake and alert A/P Assessment and Plan 1)Resp Insuff 2)B/L pulm infiltrates 3)COPD 4)Tobacco use, ETOH use 5)Bipolar disorder Plan Continue to wean down oxygen as eric keep sats >92% Bronchodilators ( DuoNeb, Symbicort, Spiriva) Continue with IV steroids- Solumederol 60mg Q8 Continue with abx- Levaquin- monitor for signs of infections ( Fever, WBC) strep pneumonia and Legionella urinary Ag negative Follow up on Mycoplasma serology Evaluate for home oxygen prior to discharge. Continue treatment plan James Turcios MD Oct 25, 2017 19:42
[2017-10-25] MEDS: OLANZapine 10 MG TAB PO SCH (20:22)
[2017-10-26] VITALS (8 sets, daily range): BP systolic 93–137; BP diastolic 66–91; PULSE 66–99; RESP 18–19; TEMP 97.3–98.1; O2SAT 95–98
[2017-10-26] MEDS: methylPREDNISolone SOD SUCC 40 MG/1 ML VIAL IV PUSH SCH (05:52)
[2017-10-26] MEDS: BACLOFEN 10 MG TAB PO SCH ×3 (05:52→23:30)
[2017-10-26] MEDS: RESP: ALBUTEROL 2.5 MG/IPRATROPIUM 0.5 MG NEB (SCH) NEB ×3 (07:35→19:15)
[2017-10-26] MEDS: FLUoxetine HCL 20 MG CAP PO SCH (08:54)
[2017-10-26] MEDS: PRAVASTATIN SOD 40 MG TAB PO SCH (08:54)
[2017-10-26] MEDS: guaiFENesin E.R. 600 MG TAB PO SCH ×2 (08:55→23:29)
[2017-10-26] MEDS: DOCUSATE SODIUM 50 MG/SENNA 8.6 MG TAB PO SCH ×2 (08:55→23:30)
[2017-10-26] MEDS: LACTOBACILLUS ACIDOPHILUS TAB PO SCH (08:55)
[2017-10-26] MEDS: POTASSIUM CHLORIDE 20 MEQ CONTROLLED RELEASE TAB PO SCH (08:55)
[2017-10-26] MEDS: GABAPENTIN 300 MG CAP PO SCH ×3 (08:55→17:02)
[2017-10-26] MEDS: THIAMINE HCL 100 MG TAB PO SCH (08:55)
[2017-10-26] MEDS: ALPRAZolam 0.5 MG TAB PO PRN (08:55)
[2017-10-26] MEDS: FUROSEMIDE 40 MG TAB PO SCH (08:55)
[2017-10-26] MEDS: SODIUM CHLORIDE 0.9% FLUSH 10 ML FLUSH IV FLUSH SCH ×2 (08:57→21:00)
[2017-10-26] MEDS: TIOTROPIUM BROMIDE 18 MCG INH INH SCH (08:57)
[2017-10-26] MEDS: BUDESONIDE-FORMOTEROL 160/4.5 MCG INHALER INH SCH ×2 (08:57→21:00)
--- NOTE | 2017-10-26 12:49 | HHI.PR ---
Subjective Remarks Patient reports breathing in much better C/O diarrhea 5-6 liquid BMs per day Objective Vitals Vital Signs Date Time Temp Pulse Resp B/P (MAP) Pulse Ox O2 Delivery O2 Flow Rate FiO2 10/26/17 08:00 97.4 68 19 128/68 (88) 98 10/26/17 07:37 97 Nasal Cannula 3.00 10/26/17 03:45 97.3 99 18 137/87 (104) 97 10/26/17 00:00 98.0 66 18 132/91 (105) 97 10/25/17 19:40 97.2 65 18 109/61 (77) 95 10/25/17 16:00 97.8 71 15 94/58 (70) 94 10/25/17 15:37 99 21 10/25/17 14:01 99 21 Result Diagram: 10/23/17 0631 10/24/17 0509 Other Results Laboratory Tests Test 10/24/17 05:09 Blood Urea Nitrogen 8 MG/DL Creatinine 0.37 MG/DL Random Glucose 135 MG/DL Calcium Level 8.3 MG/DL Magnesium Level 2.0 MG/DL Sodium Level 140 MEQ/L Potassium Level 3.9 MEQ/L Chloride Level 101 MEQ/L Carbon Dioxide Level 33.4 MEQ/L Anion Gap 6 MEQ/L Estimat Glomerular Filtration Rate 176 ML/MIN Imaging Last Impressions Chest X-Ray 10/23/17 0000 Signed Impressions: CONCLUSION: Improved aeration of the lungs with partial clearing of the of bilateral consol idation documented previously. There is continued mild interstitial and airspac e opacities bilaterally primarily in the upper lung zones. CT Angiography 10/20/17 0000 Signed Impressions: CONCLUSION: 1. No evidence of pulmonary embolus. 2. Patchy mixed groundglass opacity and consolidation in the lungs bilaterally may represent infection or asymmetric edema. 3. Small bilateral pleural effusions. 4. Coronary artery calcifications. 5. Moderate-sized hiatal hernia nonspecific mild diffuse esophageal wall thick ening. Knee X-Ray 10/19/17 0000 Signed Impressions: CONCLUSION: Severe tricompartmental osteoarthritis with a large joint effusion. No definite acute fracture identified. Extremity Arterial Study 10/18/17 0000 Signed Impressions: CONCLUSION: 1. There is moderate vascular occlusive disease on the left and further charac terization with CT angiography and runoff is recommended. Head CT 10/17/171947 Signed Impressions: CONCLUSION: 1. No acute intracranial abnormalities. Foot X-Ray 10/17/17 0000 Signed Impressions: CONCLUSION: 1. Fifth toe proximal phalanx fracture again seen. 2. No significant interval change. Objective Remarks GENERAL: This is a well-nourished, well-developed patient, in no apparent distress. CARDIOVASCULAR: Regular rate and rhythm RESPIRATORY: Clear to auscultation. Breath sounds equal bilaterally. GASTROINTESTINAL: Abdomen soft, non-tender, nondistended. Normal active bowel sounds MUSCULOSKELETAL: Extremities without clubbing, cyanosis, or edema. post-op dressing and surgical shoe RLE NEURO: Alert & Oriented x4 to person, place, time, situation. Moves all ext x4 A/P Problem List: (1) Fall ICD Codes: W19.XXXA - Unspecified fall, initial encounter Status: Acute (2) Open fracture of toe of right foot ICD Codes: S92.911B - Unspecified fracture of right toe(s), initial encounter for open fracture Status: Acute (3) Alcohol intoxication ICD Codes: F10.929 - Alcohol use, unspecified with intoxication, unspecified Status: Acute (4) Elevated LFTs ICD Codes: R94.5 - Abnormal results of liver function studies Status: Acute Assessment and Plan 60-year-old female with a PMH of Anxiety, Depression, Bipolar Disorder, HTN, Hyperlipidemia, COPD and Alcohol Abuse who is brought to the ER by EMS after a fall with apparent toe injury Pneumonia, acute COPD exacerbation, patient is 2PPD smoker >20 years still requiring 3 L NC, continue to wean -Reports of shortness of breath -CT angio no evidence of pulmonary embolus. Patchy mild ground glass opacity and consolidation in the lungs bilaterally may represent infection or asymmetric edema. Small bilateral pleural effusions. Coronary artery calcifications. Moderate-sized hiatal hernia nonspecific mild diffuse esophageal wall thickening. -Chest x-ray showed marked increase in left greater than right on her parenchymal opacity. Differential diagnosis is asymmetric pulmonary edema versus infection. Follow-up repeat chest x-ray -Duo nebs, Symbicort. s.p Lasix IV. Switch to 40mg po daily. Systolic function mildly reduced EF 45%. On IV Solu-Medrol but will transition to prednisone 30 mg PO BID. - Pulmonary also following, appreciate input -Ct Levaquin. pneumococcal/mycoplasma and Legionella urinary antigen pending -on xanax 0.5mg po BID prn per pt's request. d/c ativan Diarrhea -stool for C diff ordered and pending, patient is on Levaquin Status post fall Open toe fracture Status post right proximal fifth toe ORIF, I&D and repair of the laceration by Dr. Benedict -Pain medication oxycodone 5 and 10mg, baclofen -Physical therapy to eval and treat -Discussed with patient plan for DC to rehab instead of home for maximum benefit Right knee pain Right knee effusion -Xray ordered, joint effusion -Orthopedic consulted, joint aspiration has been done. Appreciate recommendations. -Gram stain culture moderate WBCs no organisms seen. No acid-fast bacilli seen, no fungal elements seen -Aspirate showed calcium pyrophosphate crystals. Recommend NSAIDs -Continue knee elevation leg elevation. Pain management Alcohol abuse, acute alcohol intoxication Elevated LFTs -Patient is counseled on alcohol use. Patient states she lives in a not so good environment, naming it as "[place]hetto" that is why she drinks. -Continue CIWA Protocol -DC Librium. Patient does not appear to be in withdrawals -Trend LFTs improving Bipolar disorder -Continue Prozac, Zyprexa Lower extremity edema with reports of pain - US BLE to r/o DVT ordered and pending TSH 52 in 01/2015. Patient not on supplementation -TSH and free T4 ordered for AM DVT prop SCDs. Lovenox Patient looking forward to DC to [facility] for strengthening Possible DC in the next 1-2 days Discussed the case with patient, nurse and Dr. Mccarthy (supervising Physician) Problem Qualifiers (1) Fall: Qualified Codes: W19.XXXA - Unspecified fall, initial encounter (2) Open fracture of toe of right foot: Qualified Codes: S92.414B - Nondisplaced fracture of proximal phalanx of right great toe, initial encounter for open fracture Sallie Wood Oct 26, 2017 12:49
[2017-10-26] MEDS: ENOXAPARIN SODIUM 40 MG/0.4 ML SYRINGE SQ SCH (13:06)
[2017-10-26] MEDS: LEVOFLOXACIN 750 MG PREMIX INJ 150 ML IV SCH (13:07)
[2017-10-26 14:28] LABS: MYCOPLASMA PNEUMONIAE IGG Positive (Negative); MYCOPLASMA PNEUMONIAE IGM Negative (Negative)
--- NOTE | 2017-10-26 19:35 | HHI.PR ---
Subjective Remarks Patient feels somewhat better today on 4L oxygen. Afebrile. Breathing better CXR improving infilt Still has cough Feels bloated Objective Vital Signs Vital Signs Date Time Temp Pulse Resp B/P (MAP) Pulse Ox O2 Delivery O2 Flow Rate FiO2 10/26/17 19:16 95 Nasal Cannula 3.00 10/26/17 16:00 98.1 90 18 123/66 (85) 95 10/26/17 12:00 98.1 74 19 108/75 (86) 98 10/26/17 08:00 97.4 68 19 128/68 (88) 98 10/26/17 07:37 97 Nasal Cannula 3.00 10/26/17 03:45 97.3 99 18 137/87 (104) 97 10/26/17 00:00 98.0 66 18 132/91 (105) 97 10/25/17 19:40 97.2 65 18 109/61 (77) 95 I/O 10/25/17 10/25/17 10/25/17 10/26/17 10/26/17 10/26/17 06:59 14:59 22:59 06:59 14:59 22:59 Intake Total 720 ml 680 ml 1800 ml Output Total 1700 ml Balance 720 ml 680 ml 100 ml Intake Oral 720 ml 680 ml 1800 ml Output Urine Total 1700 ml # Voids 9 6 6 # Bowel Movements 3 4 2 4 Result Diagram: 10/23/17 0631 10/24/17 0509 Objective Remarks GENERAL: Patient is 61 yo on 4L oxygen SKIN: Warm and dry. HEAD: Normocephalic. EYES: No scleral icterus. No injection or drainage. NECK: Supple, trachea midline. No JVD or lymphadenopathy. CARDIOVASCULAR: Regular rate and rhythm without murmurs, gallops, or rubs. RESPIRATORY: Coarse BS, GASTROINTESTINAL: Abdomen soft, non-tender, nondistended. MUSCULOSKELETAL: No cyanosis, or edema. Neuro: Awake and alert A/P Assessment and Plan 1)Resp Insuff 2)B/L pulm infiltrates 3)COPD 4)Tobacco use, ETOH use 5)Bipolar disorder Plan Continue to wean down oxygen as eric keep sats >92% Bronchodilators ( DuoNeb, Symbicort, Spiriva) Continue with abx- Levaquin- monitor for signs of infections ( Fever, WBC) strep pneumonia and Legionella urinary Ag negative Follow up on Mycoplasma serology Evaluate for home oxygen prior to discharge. Continue treatment plan Prednisone 30 mg bid James Turcios MD Oct 26, 2017 19:35
[2017-10-26] MEDS: CALCIUM CARBONATE 500 MG CHEWABLE TAB CHEW PRN (23:29)
[2017-10-26] MEDS: predniSONE 10 MG TAB PO SCH (23:30)
[2017-10-26] MEDS: OLANZapine 10 MG TAB PO SCH (23:30)
[2017-10-27] VITALS (9 sets, daily range): BP systolic 98–123; BP diastolic 53–77; PULSE 65–103; RESP 17–18; TEMP 97.7–98.9; O2SAT 93–98
[2017-10-27] MEDS: BACLOFEN 10 MG TAB PO SCH ×3 (06:00→22:29)
[2017-10-27] MEDS: RESP: ALBUTEROL 2.5 MG/IPRATROPIUM 0.5 MG NEB (SCH) NEB ×3 (07:18→19:25)
[2017-10-27 07:24] LABS: AUTOMATED NEUTROPHIL # 5.2 TH/MM3 (1.8-7.7); BASOPHIL % 0.3 % (0.0-2.0); EOSINOPHIL # 0.1 TH/MM3 (0-0.4); HEMATOCRIT 32.1 % (35.0-46.0); HEMOGLOBIN 10.8 GM/DL (11.6-15.3); LYMPH % 16.2 % (9.0-44.0); LYMPHOCYTE # 1.1 TH/MM3 (1.0-4.8); MEAN CELL VOLUME 104.6 FL (80.0-100.0); MEAN CORPUSCULAR HEMOGLOBIN 35.1 PG (27.0-34.0); MEAN CORPUSCULAR HGB CONC 33.5 % (32.0-36.0); MEAN PLATELET VOLUME 8.3 FL (7.0-11.0); MONO % 5.7 % (0.0-8.0); MONOCYTE # 0.4 TH/MM3 (0-0.9); NEUT % 76.8 % (16.0-70.0); PLATELET COUNT 243 TH/MM3 (150-450); RED BLOOD COUNT 3.07 MIL/MM3 (4.00-5.30); RED CELL DISTRIBUTION WIDTH 15.6 % (11.6-17.2); WHITE BLOOD COUNT 6.8 TH/MM3 (4.0-11.0)
[2017-10-27 07:43] LABS: BICARBONATE 36.9 MEQ/L (21.0-32.0); CALCIUM 8.9 MG/DL (8.5-10.1); CREATININE 0.48 MG/DL (0.50-1.00)
[2017-10-27 07:54] LABS: FREE T4 0.23 NG/DL (0.76-1.46)
--- NOTE | 2017-10-27 08:50 | HHI.DS ---
Discharge Summary Admission Date Oct 17, 2017 at 21:22 Discharge Date: Oct 28, 2017 Admitting Diagnosis Open toe fracture, alcohol intoxication (1) Community acquired pneumonia ICD Code: J18.9 - Pneumonia, unspecified organism Diagnosis: Secondary Status: Acute (2) Acute exacerbation of chronic obstructive pulmonary disease (COPD) ICD Code: J44.1 - Chronic obstructive pulmonary disease with (acute) exacerbation Diagnosis: Secondary Status: Acute (3) Fall ICD Code: W19.XXXA - Unspecified fall, initial encounter Status: Acute (4) Open fracture of toe of right foot ICD Code: S92.911B - Unspecified fracture of right toe(s), initial encounter for open fracture Diagnosis: Principal Status: Acute (5) Alcohol intoxication ICD Code: F10.929 - Alcohol use, unspecified with intoxication, unspecified Diagnosis: Secondary Status: Resolved (6) Elevated LFTs ICD Code: R94.5 - Abnormal results of liver function studies Status: Resolved Procedures status post right fifth toe, open, proximal phalanx fracture debridement and irrigation with laceration repair Brief History - From Admission This is a 60-year-old female with a PMH of Anxiety, Depression, Bipolar Disorder , HTN, Hyperlipidemia, COPD and Alcohol Abuse who is brought to the ER by EMS after a fall with apparent toe injury. Patient is acutely intoxicated. Per report patient was at a friend's house and had gone to the bathroom at which time she had a slip and fall. Reports hitting her head on bathtub. Denies LOC. Reports significant pain to right fifth toe. Pain is constant, severe, 8/ 10. On arrival, BP 108/62, HR 68, O2 sat 99% on RA, Afebrile. CBC at baseline. Chemistry essentially at baseline. LFTs elevated, improved in comparison to previous labs. Alcohol 269. Foot X-ray with fracture proximal phalanx right fifth toe. CT Head with no acute findings. Dr. Benedict consulted , plan is for surgical intervention this evening, pt will need at least 24hrs of IV Abx after surgery. CBC/BMP: 10/27/17 0544 10/27/17 0546 Significant Findings Laboratory Tests Test 10/27/17 05:44 10/27/17 05:46 Red Blood Count 3.07 MIL/MM3 (4.00-5.30) Hemoglobin 10.8 GM/DL (11.6-15.3) Hematocrit 32.1 % (35.0-46.0) Mean Corpuscular Volume 104.6 FL (80.0-100.0) Mean Corpuscular Hemoglobin 35.1 PG (27.0-34.0) Neutrophils (%) (Auto) 76.8 % (16.0-70.0) Creatinine 0.48 MG/DL (0.50-1.00) Chloride Level 95 MEQ/L (98-107) Carbon Dioxide Level 36.9 MEQ/L (21.0-32.0) Free Thyroxine 0.23 NG/DL (0.76-1.46) Thyroid Stimulating Hormone 3rd Gen 22.200 uIU/ML (0.358-3.740) Imaging Last Impressions Chest X-Ray 10/23/17 Signed Impressions: CONCLUSION: Improved aeration of the lungs with partial clearing of the of bilateral consol idation documented previously. There is continued mild interstitial and airspac e opacities bilaterally primarily in the upper lung zones. CT Angiography 10/20/17 Signed Impressions: CONCLUSION: 1. No evidence of pulmonary embolus. 2. Patchy mixed groundglass opacity and consolidation in the lungs bilaterally may represent infection or asymmetric edema. 3. Small bilateral pleural effusions. 4. Coronary artery calcifications. 5. Moderate-sized hiatal hernia nonspecific mild diffuse esophageal wall thick ening. Knee X-Ray 10/19/17 Signed Impressions: CONCLUSION: Severe tricompartmental osteoarthritis with a large joint effusion. No definite acute fracture identified. Extremity Arterial Study 10/18/17 Signed Impressions: CONCLUSION: 1. There is moderate vascular occlusive disease on the left and further charac terization with CT angiography and runoff is recommended. Head CT 10/17/171947 Signed Impressions: CONCLUSION: 1. No acute intracranial abnormalities. Foot X-Ray 10/17/17 Signed Impressions: CONCLUSION: 1. Fifth toe proximal phalanx fracture again seen. 2. No significant interval change. PE at Discharge GENERAL: sitting up on recliner chair, NC in place. appears comfortable. eating breakfast CARDIOVASCULAR: Regular rate and rhythm without murmurs RESPIRATORY: Coarse breath sounds, rhonchi. + mild exp wheezes GASTROINTESTINAL: Abdomen soft, non-tender, nondistended. MUSCULOSKELETAL: Mild bilateral lower extremity edema, Rt knee edema +2, Rt Foot dsg CDI NEUROLOGICAL: Awake and alert. Moves all extremities. Normal speech. Hospital Course These are the medical issues addressed during this hospitalization: 60-year-old female with a PMH of Anxiety, Depression, Bipolar Disorder, HTN, Hyperlipidemia, COPD and Alcohol Abuse who is brought to the ER by EMS after a fall with apparent toe injury Community-acquired pneumonia, acute - clinically improving and placed on Levaquin during hospitalization with oxygen support. Currently on 2 L of oxygen and continue weaning off at rehab COPD exacerbation, patient is 2PPD smoker >20 years - continue to wean Patient was placed on Duo nebs, Symbicort, Lasix IV. Switch to 40mg po daily upon discharge. Systolic function mildly reduced EF 45%. Patient was also placed on IV Solu-Medrol and transition to prednisone 40 daily - Pulmonary also following, appreciate input Status post fall Open toe fracture Status post right proximal fifth toe ORIF, I&D and repair of the laceration by Dr. Benedict -Pain medication given oxycodone 5 and 10mg, along with baclofen, patient underwent postoperative course -Physical therapy to eval and treat Right knee pain with right knee effusion -Xray ordered, joint effusion -Orthopedic consulted, joint aspiration has been done. Appreciate recommendations. -Gram stain culture moderate WBCs no organisms seen. No acid-fast bacilli seen, no fungal elements seen -Aspirate showed calcium pyrophosphate crystals. Recommend NSAIDs -Continue knee elevation leg elevation. Pain management Alcohol abuse, acute alcohol intoxication Elevated LFTs -Patient is counseled on alcohol use. -Placed on CIWA Protocol - Patient does not appear to be in withdrawals during hospitalization -Trend of LFTs improving Bipolar disorder -Continue Prozac, Zyprexa DVT prop SCDs. Lovenox At this time, patient has gained maximum benefit from consultation ready to be discharged to [facility] Pt Condition on Discharge: Stable Discharge Disposition: Discharge to SNF Discharge Time: <= 30 minutes Discharge Instructions DIET: Follow Instructions for: Heart Healthy Diet Activities you can perform: Weight Bearing as Leann Other Activity Instructions: Needs to wear postop shoe when out of bed Follow up Referrals: PCP Follow-up Podiatry - 1 Week with Idalmis Benedict DPM New Medications: Levofloxacin (Levaquin) 750 Mg Tablet 750 MG PO DAILY for Infection for 5 Days, #5 TAB 0 Refills Prednisone (Prednisone) 20 Mg Tab 20 MG PO DIRECTED for Inflammation, #9 TAB 0 Refills 40 MG a day x 2 days, then 20 MG daily x 2 days, then 10 MG daily x 3 days Prednisone (Prednisone) 20 Mg Tab 20 MG PO BID for COPD for 7 Days, #14 TAB 0 Refills Baclofen (Baclofen) 10 Mg Tab 10 MG PO Q8HR for Muscle Spasm, #15 TAB Folic Acid (Folic Acid) 1 Mg Tablet 1 MG PO DAILY for Nutritional Supplement, #30 TAB Furosemide (Furosemide) 40 Mg Tab 40 MG PO DAILY for decrease fluid, #7 TAB Multiple Vitamins W/ Minerals (Thera M Plus) 1 Tab 1 TAB PO DAILY for Nutritional Supplement, #30 TAB Oxycodone (Oxycodone) 5 Mg Tab 5 MG PO Q4H PRN for PAIN, #12 TAB Potassium Chloride Microencaps (Potassium Chloride Microencaps) 20 Meq Tab 40 MEQ PO DAILY for Electrolyte Replacement, #7 TAB Thiamine HCl (Gnp Vitamin B-1) 100 Mg Tab 100 MG PO DAILY for Nutritional Supplement, #30 TAB Tiotropium Inh (Spiriva Handihaler) 18 Mcg Cap 18 MCG INH DAILY for COPD, #30 CAP 1 capsule = 18 mcg [Albuterol-Ipratropium Neb] () 1 AMPULE NEBU 1 AMPULE NEB Q6HR NEB for Shortness of Breath, #30 [Albuterol-Ipratropium Neb] () 1 AMPULE NEBU 1 AMPULE NEB Q4HR NEB PRN for SOB/WHEEZING, #30 AMPULE [Budeson-Formot 160-4.5 Mcg Inh] () 60 PUFF AERO 1 PUFF INH Q12HR for COPD, #1 INHALER [guaiFENesin ER] () 600 MG TABCR 600 MG PO BID for Cough, #12 TAB Continued Medications: Bupropion HCl (Bupropion HCl) 75 Mg Tab 75 MG PO DAILY for Control Depression, TAB 0 Refills Fluoxetine (Fluoxetine) 40 Mg Cap 40 CAP PO DAILY, #30 CAP 0 Refills Gabapentin (Gabapentin) 600 Mg Tab 600 MG PO TID, #90 TAB 0 Refills Lactobacillus Acidophilus (Lactobacillus Acidophilus) 1 Tab Tab 1 TAB PO DAILY for Nutritional Supplement, #30 TAB 0 Refills Take with food Lovastatin (Lovastatin) 40 Mg Tab 40 MG PO DAILY for Cholesterol Management, #30 TAB 0 Refills Meloxicam (Mobic) 7.5 Mg Tab 7.5 MG PO DAILY for ARTHRITIS, TAB 0 Refills Olanzapine (Olanzapine) 20 Mg Tab 20 MG PO HS, #30 TAB 0 Refills Melanie Padgett MD Oct 27, 2017 08:50
[2017-10-27] MEDS ORDERED: POTA20TA5 PO (08:54)
[2017-10-27] MEDS ORDERED: PRED20 PO (08:54)
[2017-10-27] MEDS: guaiFENesin E.R. 600 MG TAB PO SCH ×2 (08:54→19:46)
[2017-10-27] MEDS ORDERED: FURO40TA PO (08:54)
[2017-10-27] MEDS: predniSONE 10 MG TAB PO SCH (08:54)
[2017-10-27] MEDS: PRAVASTATIN SOD 40 MG TAB PO SCH (08:54)
[2017-10-27] MEDS: THIAMINE HCL 100 MG TAB PO SCH (08:54)
[2017-10-27] MEDS: LACTOBACILLUS ACIDOPHILUS TAB PO SCH (08:54)
[2017-10-27] MEDS: FLUoxetine HCL 20 MG CAP PO SCH (08:54)
[2017-10-27] MEDS: DOCUSATE SODIUM 50 MG/SENNA 8.6 MG TAB PO SCH ×2 (08:55→19:46)
[2017-10-27] MEDS: POTASSIUM CHLORIDE 20 MEQ CONTROLLED RELEASE TAB PO SCH (08:55)
[2017-10-27] MEDS: FUROSEMIDE 40 MG TAB PO SCH (08:55)
[2017-10-27] MEDS: GABAPENTIN 300 MG CAP PO SCH ×3 (08:55→17:09)
[2017-10-27] MEDS: SODIUM CHLORIDE 0.9% FLUSH 10 ML FLUSH IV FLUSH SCH ×2 (08:58→19:47)
[2017-10-27] MEDS: BUDESONIDE-FORMOTEROL 160/4.5 MCG INHALER INH SCH ×2 (08:58→19:47)
[2017-10-27] MEDS: TIOTROPIUM BROMIDE 18 MCG INH INH SCH (08:59)
[2017-10-27] MEDS ORDERED: LEVOFLOXACIN 750 MG TAB PO ONE (10:15)
--- NOTE | 2017-10-27 12:36 | RADRPT ---
EXAM DATE: 10/27/2017 12:31 PM EDT AGE/SEX: 61 years / Female INDICATIONS: Bilateral leg edema. CLINICAL DATA: This is the patient's initial encounter. Patient reports that signs and symptoms have been present for 1 week and indicates a pain score of 3/10. MEDICAL/SURGICAL HISTORY: Hypercholesterolemia. Gastroesophageal reflux disease. Chronic obst ructive pulmonary disease. Syncope. Hiatal hernia. Bipolar disorder. Hyperlipidemia. Alcohol abuse. Hypothyroidism. Sleep apnea. Appendectomy. Total knee replacement, left. Right arm surgery. Hernia repair. COMPARISON: No prior exams available for comparison. TECHNIQUE: Venous ultrasound of both lower extremities was performed from the inguinal ligament to t he proximal calf. Real-time, color Doppler and spectral tracing, compression and augmentation techni ques were used. FINDINGS: Right Leg: Normal compression of the deep venous system from the inguinal region to the proximal candelaria f. No echogenic clot is seen. Normal response of the venous system to augmentation and respiration. Left Leg: Normal compression of the deep venous system from the inguinal region to the proximal calf . No echogenic clot is seen. Normal response of the venous system to augmentation and respiration. Other: There is superficial edema. CONCLUSION: No DVT. Electronically signed by: Constantino Santizo MD 10/27/2017 12:35 PM EDT
[2017-10-27] MEDS: ENOXAPARIN SODIUM 40 MG/0.4 ML SYRINGE SQ SCH (15:43)
[2017-10-27] MEDS: ALPRAZolam 0.5 MG TAB PO PRN (17:08)
[2017-10-27] MEDS: CALCIUM CARBONATE 500 MG CHEWABLE TAB CHEW PRN (19:46)
[2017-10-27] MEDS: predniSONE 20 MG TAB PO SCH (19:46)
[2017-10-27] MEDS: OLANZapine 10 MG TAB PO SCH (19:46)
--- NOTE | 2017-10-27 20:57 | HHI.PR ---
Subjective Remarks Patient feels somewhat better today on 4L oxygen. Afebrile. Breathing better CXR improving infilt Still has cough Overall feels better 'I am going to [facility]" Objective Vital Signs Vital Signs Date Time Temp Pulse Resp B/P (MAP) Pulse Ox O2 Delivery O2 Flow Rate FiO2 10/27/17 19:27 95 10/27/17 16:00 98.1 77 17 101/63 (76) 95 10/27/17 12:00 97.7 80 17 103/66 (78) 97 10/27/17 08:00 97.9 80 17 123/77 (92) 98 10/27/17 07:24 98 Nasal Cannula 2.00 10/27/17 07:00 Nasal Cannula 2.00 Humidified 10/27/17 04:00 97.7 65 18 113/66 (82) 97 10/27/17 00:00 98.9 76 18 104/53 (70) 96 I/O 10/26/17 10/26/17 10/26/17 10/27/17 10/27/17 10/27/17 07:00 15:00 23:00 07:00 15:00 23:00 Intake Total 680 ml 1800 ml 640 ml 600 ml Output Total 1700 ml Balance 680 ml 100 ml 640 ml 600 ml Intake Oral 680 ml 1800 ml 640 ml 600 ml Output Urine Total 1700 ml # Voids 6 8 5 # Bowel Movements 2 4 2 5 Result Diagram: 10/27/17 0544 10/27/17 0546 Objective Remarks GENERAL: Patient is 61 yo on 4L oxygen SKIN: Warm and dry. HEAD: Normocephalic. EYES: No scleral icterus. No injection or drainage. NECK: Supple, trachea midline. No JVD or lymphadenopathy. CARDIOVASCULAR: Regular rate and rhythm without murmurs, gallops, or rubs. RESPIRATORY: Coarse BS, GASTROINTESTINAL: Abdomen soft, non-tender, nondistended. MUSCULOSKELETAL: No cyanosis, or edema. Neuro: Awake and alert A/P Assessment and Plan 1)Resp Insuff 2)B/L pulm infiltrates 3)COPD 4)Tobacco use, ETOH use 5)Bipolar disorder Plan Continue to wean down oxygen as eric keep sats >92% Bronchodilators ( DuoNeb, Symbicort, Spiriva) Continue with abx- Levaquin- monitor for signs of infections ( Fever, WBC) strep pneumonia and Legionella urinary Ag negative Follow up on Mycoplasma serology Evaluate for home oxygen prior to discharge. Continue treatment plan Prednisone 30 mg bid DC plans underway James Turcios MD Oct 27, 2017 20:57
[2017-10-28] VITALS (10 sets, daily range): BP systolic 92–131; BP diastolic 57–97; PULSE 66–99; RESP 14–19; TEMP 97.2–98.3; O2SAT 94–98
[2017-10-28] MEDS: BACLOFEN 10 MG TAB PO SCH ×3 (06:21→21:48)
[2017-10-28] MEDS: ALPRAZolam 0.5 MG TAB PO PRN ×2 (06:23→19:00)
[2017-10-28] MEDS: RESP: ALBUTEROL 2.5 MG/IPRATROPIUM 0.5 MG NEB (SCH) NEB ×3 (08:45→20:00)
[2017-10-28] MEDS: SODIUM CHLORIDE 0.9% FLUSH 10 ML FLUSH IV FLUSH SCH ×2 (09:00→21:00)
[2017-10-28] MEDS: FUROSEMIDE 40 MG TAB PO SCH (09:00)
[2017-10-28] MEDS: DOCUSATE SODIUM 50 MG/SENNA 8.6 MG TAB PO SCH ×2 (09:00→21:00)
--- NOTE | 2017-10-28 09:33 | HHI.PR ---
Subjective Remarks Breathing better. Now off oxygen. No other concerns at this time. Objective Vitals Vital Signs Date Time Temp Pulse Resp B/P (MAP) Pulse Ox O2 Delivery O2 Flow Rate FiO2 10/28/17 08:48 94 21 10/27/17 23:12 97.7 70 18 98/60 (73) 93 10/27/17 20:28 98.0 103 18 104/57 (73) 93 10/27/17 19:27 95 10/27/17 16:00 98.1 77 17 101/63 (76) 95 10/27/17 12:00 97.7 80 17 103/66 (78) 97 I/O 10/27/17 10/27/17 10/27/17 10/28/17 10/28/17 10/28/17 07:00 15:00 23:00 07:00 15:00 23:00 Intake Total 640 ml 600 ml 720 ml Balance 640 ml 600 ml 720 ml Intake Oral 640 ml 600 ml 720 ml # Voids 8 5 9 # Bowel Movements 2 5 4 Result Diagram: 10/27/17 0544 10/27/17 0546 Objective Remarks GENERAL: This is a well-nourished, well-developed patient, in no apparent distress. CARDIOVASCULAR: Regular rate and rhythm. RESPIRATORY: Clear to auscultation. Breath sounds equal bilaterally. No wheezes , rales, or rhonchi. MUSCULOSKELETAL: Right foot bandage clean dry intact NEURO: Alert & Oriented x4 to person, place, time, situation. Moves all ext x4 Procedures status post right fifth toe, open, proximal phalanx fracture debridement and irrigation with laceration repair A/P Problem List: (1) Community acquired pneumonia ICD Code: J18.9 - Pneumonia, unspecified organism Status: Acute (2) Acute exacerbation of chronic obstructive pulmonary disease (COPD) ICD Code: J44.1 - Chronic obstructive pulmonary disease with (acute) exacerbation Status: Acute (3) Fall ICD Code: W19.XXXA - Unspecified fall, initial encounter Status: Acute (4) Open fracture of toe of right foot ICD Code: S92.911B - Unspecified fracture of right toe(s), initial encounter for open fracture Status: Acute (5) Alcohol intoxication ICD Code: F10.929 - Alcohol use, unspecified with intoxication, unspecified Status: Resolved (6) Elevated LFTs ICD Code: R94.5 - Abnormal results of liver function studies Status: Resolved Assessment and Plan 60-year-old female with a PMH of Anxiety, Depression, Bipolar Disorder, HTN, Hyperlipidemia, COPD and Alcohol Abuse who is brought to the ER by EMS after a fall with apparent toe injury Community-acquired pneumonia, acute - clinically improving and placed on Levaquin during hospitalization with oxygen support. Currently off oxygen on room air, 94 % COPD exacerbation, patient is 2PPD smoker >20 years - continue to wean Patient was placed on Duo nebs, Symbicort, Lasix IV. Switch to 40mg po daily upon discharge. Systolic function mildly reduced EF 45%. Patient was also placed on IV Solu-Medrol and transition to prednisone 40 daily with continued taper dosing - Status post fall Open toe fracture Status post right proximal fifth toe ORIF, I&D and repair of the laceration by Dr. Benedict -Pain medication given oxycodone 5 and 10mg, along with baclofen, patient underwent postoperative course -Physical therapy to eval and treat Right knee pain with right knee effusion -Xray ordered, joint effusion -Orthopedic consulted, joint aspiration has been done. Appreciate recommendations. -Gram stain culture moderate WBCs no organisms seen. No acid-fast bacilli seen, no fungal elements seen -Aspirate showed calcium pyrophosphate crystals. Recommend NSAIDs -Continue knee elevation leg elevation. Pain management Alcohol abuse, acute alcohol intoxication Elevated LFTs -Patient is counseled on alcohol use. -Placed on CIWA Protocol - Patient does not appear to be in withdrawals during hospitalization -Trend of LFTs improving Bipolar disorder -Continue Prozac, Zyprexa DVT prop SCDs. Lovenox Discharge Planning Await authorization from insurance company for halfway facility placement Problem Qualifiers (1) Fall: Qualified Codes: W19.XXXA - Unspecified fall, initial encounter (2) Open fracture of toe of right foot: Qualified Codes: S92.414B - Nondisplaced fracture of proximal phalanx of right great toe, initial encounter for open fracture Melanie Padgett MD Oct 28, 2017 09:33
[2017-10-28] MEDS: BUDESONIDE-FORMOTEROL 160/4.5 MCG INHALER INH SCH ×2 (09:53→21:00)
[2017-10-28] MEDS: predniSONE 20 MG TAB PO SCH ×2 (09:54→21:47)
[2017-10-28] MEDS: guaiFENesin E.R. 600 MG TAB PO SCH ×2 (09:54→21:47)
[2017-10-28] MEDS: GABAPENTIN 300 MG CAP PO SCH ×3 (09:54→19:00)
[2017-10-28] MEDS: POTASSIUM CHLORIDE 20 MEQ CONTROLLED RELEASE TAB PO SCH (09:54)
[2017-10-28] MEDS: FLUoxetine HCL 20 MG CAP PO SCH (09:54)
[2017-10-28] MEDS: THIAMINE HCL 100 MG TAB PO SCH (09:54)
[2017-10-28] MEDS: LACTOBACILLUS ACIDOPHILUS TAB PO SCH (09:55)
[2017-10-28] MEDS: LEVOFLOXACIN 750 MG TAB PO SCH (09:55)
[2017-10-28] MEDS: PRAVASTATIN SOD 40 MG TAB PO SCH (09:55)
[2017-10-28] MEDS: TIOTROPIUM BROMIDE 18 MCG INH INH SCH (09:59)
[2017-10-28] MEDS: ENOXAPARIN SODIUM 40 MG/0.4 ML SYRINGE SQ SCH (14:14)
--- NOTE | 2017-10-28 19:23 | HHI.PR ---
Subjective Remarks Patient feels somewhat better today on 4L oxygen. Afebrile. Breathing better CXR improving infilt Still has cough Overall feels better Up in chair Fell in the bathroom, no injury Objective Vital Signs Vital Signs Date Time Temp Pulse Resp B/P (MAP) Pulse Ox O2 Delivery O2 Flow Rate FiO2 10/28/17 15:44 98.3 84 18 106/70 (82) 98 10/28/17 11:44 97.8 76 19 92/61 (71) 96 10/28/17 10:44 97.4 69 18 103/59 (74) 96 10/28/17 09:44 97.2 85 14 98/60 (73) 95 10/28/17 08:48 94 21 10/28/17 08:45 97.3 90 18 96/62 (73) 96 10/28/17 08:44 97.3 79 18 96/62 (73) 96 10/28/17 08:00 97.9 66 18 112/80 (91) 95 10/27/17 23:12 97.7 70 18 98/60 (73) 93 10/27/17 20:28 98.0 103 18 104/57 (73) 93 10/27/17 19:27 95 I/O 10/27/17 10/27/17 10/27/17 10/28/17 10/28/17 10/28/17 07:00 15:00 23:00 07:00 15:00 23:00 Intake Total 640 ml 600 ml 720 ml Balance 640 ml 600 ml 720 ml Intake Oral 640 ml 600 ml 720 ml # Voids 8 5 9 6 # Bowel Movements 2 5 4 2 Result Diagram: 10/27/17 0544 10/27/17 0546 Objective Remarks GENERAL: Patient is 61 yo on 4L oxygen SKIN: Warm and dry. HEAD: Normocephalic. EYES: No scleral icterus. No injection or drainage. NECK: Supple, trachea midline. No JVD or lymphadenopathy. CARDIOVASCULAR: Regular rate and rhythm without murmurs, gallops, or rubs. RESPIRATORY: Coarse BS, GASTROINTESTINAL: Abdomen soft, non-tender, nondistended. MUSCULOSKELETAL: No cyanosis, or edema. Neuro: Awake and alert A/P Assessment and Plan 1)Resp Insuff 2)B/L pulm infiltrates 3)COPD 4)Tobacco use, ETOH use 5)Bipolar disorder Plan Continue to wean down oxygen as eric keep sats >92% Bronchodilators ( DuoNeb, Symbicort, Spiriva) Continue with abx- Levaquin- monitor for signs of infections ( Fever, WBC) strep pneumonia and Legionella urinary Ag negative Follow up on Mycoplasma serology Evaluate for home oxygen prior to discharge. Continue treatment plan DecreasePrednisone 30 mg Daily DC plans underway James Turcios MD Oct 28, 2017 19:23
[2017-10-28] MEDS ORDERED: ONDANSETRON ODT 4 MG TAB SL PRN (20:00)
[2017-10-28] MEDS: OLANZapine 10 MG TAB PO SCH (21:47)
[2017-10-28] MEDS: CALCIUM CARBONATE 500 MG CHEWABLE TAB CHEW PRN (21:47)
[2017-10-29] VITALS (11 sets, daily range): BP systolic 92–160; BP diastolic 57–93; PULSE 60–87; RESP 17–19; TEMP 97.1–98; O2SAT 93–97
--- NOTE | 2017-10-29 04:57 | RADRPT ---
EXAM DATE: 10/29/2017 4:32 AM EDT AGE/SEX: 61 years / Female INDICATIONS: Pain due to fall. CLINICAL DATA: This is the patient's initial encounter. Patient reports that signs and symptoms have been present for 1 day and indicates a pain score of 10/10. MEDICAL/SURGICAL HISTORY: . Hypercholesterolemia. Gastroesophageal reflux disease. Chronic obst ructive pulmonary disease. Syncope. Hiatal hernia. Bipolar disorder. Hyperlipidemia. Alcohol abuse. H ypothyroidism. Sleep apnea. . Appendectomy. Total knee replacement, left. Right arm surgery. Hernia repair. COMPARISON: No prior exams available for comparison. FINDINGS: AP and lateral views of the sacrum and coccyx were obtained and demonstrate no acute sacral fracture or malalignment. The presacral soft tissues are within normal limits. There is a grade 1 anterior spo ndylolisthesis of L5 on S1 of approximately 1 cm. Degenerative disc changes are present at the L5-S1 level with disc space narrowing and hypertrophic change. CONCLUSION: 1. The sacrum and coccyx are intact in appearance. 2. Grade 1 anterior spondylolisthesis of L5 on S1 of approximately 1 centimeter. There are degenerat oscar disc changes at this level. Electronically signed by: Dayne De Leon MD 10/29/2017 4:56 AM EDT
[2017-10-29] MEDS: BACLOFEN 10 MG TAB PO SCH ×3 (06:00→21:42)
[2017-10-29] MEDS: RESP: ALBUTEROL 2.5 MG/IPRATROPIUM 0.5 MG NEB (SCH) NEB (08:48)
[2017-10-29] MEDS: DOCUSATE SODIUM 50 MG/SENNA 8.6 MG TAB PO SCH ×2 (09:00→21:00)
[2017-10-29] MEDS: TIOTROPIUM BROMIDE 18 MCG INH INH SCH (09:00)
[2017-10-29] MEDS: SODIUM CHLORIDE 0.9% FLUSH 10 ML FLUSH IV FLUSH SCH ×2 (09:00→21:00)
[2017-10-29] MEDS: FUROSEMIDE 40 MG TAB PO SCH (09:00)
[2017-10-29] MEDS: GABAPENTIN 300 MG CAP PO SCH ×3 (09:31→17:57)
[2017-10-29] MEDS: PRAVASTATIN SOD 40 MG TAB PO SCH (09:31)
[2017-10-29] MEDS: LEVOFLOXACIN 750 MG TAB PO SCH (09:31)
[2017-10-29] MEDS: LACTOBACILLUS ACIDOPHILUS TAB PO SCH (09:31)
[2017-10-29] MEDS: guaiFENesin E.R. 600 MG TAB PO SCH ×2 (09:32→21:42)
[2017-10-29] MEDS: POTASSIUM CHLORIDE 20 MEQ CONTROLLED RELEASE TAB PO SCH (09:32)
[2017-10-29] MEDS: predniSONE 20 MG TAB PO SCH (09:32)
[2017-10-29] MEDS: THIAMINE HCL 100 MG TAB PO SCH (09:33)
[2017-10-29] MEDS: FLUoxetine HCL 20 MG CAP PO SCH (09:33)
[2017-10-29] MEDS: BUDESONIDE-FORMOTEROL 160/4.5 MCG INHALER INH SCH ×2 (09:33→21:42)
--- NOTE | 2017-10-29 09:39 | HHI.PR ---
Subjective Remarks States that he she fell this morning walking to the bathroom. Complaining of pain in the tailbone but much better now. Reports no active shortness of breath. No chest pains. Objective Vitals Vital Signs Date Time Temp Pulse Resp B/P (MAP) Pulse Ox O2 Delivery O2 Flow Rate FiO2 10/29/17 08:50 95 21 10/29/17 07:30 97.8 87 18 103/77 (86) 97 10/29/17 06:30 97.5 78 19 108/73 (85) 97 10/29/17 05:30 97.2 60 18 135/86 (102) 95 10/29/17 04:30 97.5 62 19 125/73 (90) 96 10/29/17 03:30 97.1 74 18 160/93 (115) 94 10/28/17 23:44 97.8 97 18 115/57 (76) 94 10/28/17 19:44 97.8 99 18 131/97 (108) 94 10/28/17 19:40 Room Air 10/28/17 15:44 98.3 84 18 106/70 (82) 98 10/28/17 11:44 97.8 76 19 92/61 (71) 96 10/28/17 10:44 97.4 69 18 103/59 (74) 96 10/28/17 09:44 97.2 85 14 98/60 (73) 95 I/O 10/28/17 10/28/17 10/28/17 10/29/17 10/29/17 10/29/17 07:00 15:00 23:00 07:00 15:00 23:00 Intake Total 720 ml 360 ml Balance 720 ml 360 ml Intake Oral 720 ml 360 ml # Voids 9 6 6 # Bowel Movements 4 2 2 Result Diagram: 10/27/17 0544 10/27/17 0546 Objective Remarks GENERAL: This is a well-nourished, well-developed patient, in no apparent distress. CARDIOVASCULAR: Regular rate and rhythm. RESPIRATORY: Clear to auscultation. Breath sounds equal bilaterally. No wheezes , rales, or rhonchi. MUSCULOSKELETAL: Right foot bandage clean dry intact, palpation of the back showed no focalized tenderness NEURO: Alert & Oriented x4 to person, place, time, situation. Moves all ext x4 Procedures status post right fifth toe, open, proximal phalanx fracture debridement and irrigation with laceration repair A/P Problem List: (1) Community acquired pneumonia ICD Code: J18.9 - Pneumonia, unspecified organism Status: Acute (2) Acute exacerbation of chronic obstructive pulmonary disease (COPD) ICD Code: J44.1 - Chronic obstructive pulmonary disease with (acute) exacerbation Status: Acute (3) Fall ICD Code: W19.XXXA - Unspecified fall, initial encounter Status: Acute (4) Open fracture of toe of right foot ICD Code: S92.911B - Unspecified fracture of right toe(s), initial encounter for open fracture Status: Acute (5) Alcohol intoxication ICD Code: F10.929 - Alcohol use, unspecified with intoxication, unspecified Status: Resolved (6) Elevated LFTs ICD Code: R94.5 - Abnormal results of liver function studies Status: Resolved Assessment and Plan 60-year-old female with a PMH of Anxiety, Depression, Bipolar Disorder, HTN, Hyperlipidemia, COPD and Alcohol Abuse who is brought to the ER by EMS after a fall with apparent toe injury 1. Community-acquired pneumonia, acute - clinically improving and placed on Levaquin during hospitalization with oxygen support. Currently off oxygen on room air, 94 % 2. COPD exacerbation, patient is 2PPD smoker >20 years - continue to wean Patient was placed on Duo nebs, Symbicort, initially on Lasix IV. Switch to 40mg po daily upon discharge. Systolic function mildly reduced EF 45%. Patient was also placed on IV Solu-Medrol and transition to prednisone 40 daily with continued taper dosing to prednisone 20 p.o. daily today - 3. Status post fall Open toe fracture Status post right proximal fifth toe ORIF, I&D and repair of the laceration by Dr. Benedict -Pain medication given oxycodone 5 and 10mg, along with baclofen, patient underwent postoperative course -Physical therapy to eval and treat 4. Right knee pain with right knee effusion -Xray ordered, joint effusion -Orthopedic consulted, joint aspiration has been done. Appreciate recommendations. -Gram stain culture moderate WBCs no organisms seen. No acid-fast bacilli seen, no fungal elements seen -Aspirate showed calcium pyrophosphate crystals. Recommend NSAIDs -Continue knee elevation leg elevation. Pain management 5.Alcohol abuse, acute alcohol intoxication Elevated LFTs -Patient is counseled on alcohol use. -Placed on CIWA Protocol - Patient does not appear to be in withdrawals during hospitalization -Trend of LFTs improving 6. Bipolar disorder -Continue Prozac, Zyprexa 7. DVT prop SCDs. Lovenox Discharge Planning Await authorization from insurance company for [facility] facility placement Problem Qualifiers (1) Fall: Qualified Codes: W19.XXXA - Unspecified fall, initial encounter (2) Open fracture of toe of right foot: Qualified Codes: S92.414B - Nondisplaced fracture of proximal phalanx of right great toe, initial encounter for open fracture Melanie Padgett MD Oct 29, 2017 09:39
[2017-10-29] MEDS: CALCIUM CARBONATE 500 MG CHEWABLE TAB CHEW PRN ×2 (11:07→14:46)
[2017-10-29] MEDS: ENOXAPARIN SODIUM 40 MG/0.4 ML SYRINGE SQ SCH (14:46)
--- NOTE | 2017-10-29 18:07 | HHI.PR ---
Subjective Remarks Patient feels somewhat better today on 4L oxygen. Afebrile. Breathing better CXR improving infilt Still has cough Overall feels better Up in chair Objective Vital Signs Vital Signs Date Time Temp Pulse Resp B/P (MAP) Pulse Ox O2 Delivery O2 Flow Rate FiO2 10/29/17 15:30 97.1 72 18 92/62 (72) 95 10/29/17 11:30 98.0 84 18 95/57 (70) 94 10/29/17 08:50 95 21 10/29/17 07:30 97.8 87 18 103/77 (86) 97 10/29/17 06:30 97.5 78 19 108/73 (85) 97 10/29/17 05:30 97.2 60 18 135/86 (102) 95 10/29/17 04:30 97.5 62 19 125/73 (90) 96 10/29/17 03:30 97.1 74 18 160/93 (115) 94 10/28/17 23:44 97.8 97 18 115/57 (76) 94 10/28/17 19:44 97.8 99 18 131/97 (108) 94 10/28/17 19:40 Room Air I/O 10/28/17 10/28/17 10/28/17 10/29/17 10/29/17 10/29/17 07:00 15:00 23:00 07:00 15:00 23:00 Intake Total 720 ml 360 ml Balance 720 ml 360 ml Intake Oral 720 ml 360 ml # Voids 9 6 6 4 # Bowel Movements 4 2 2 Result Diagram: 10/27/17 0544 10/27/17 0546 Objective Remarks GENERAL: Patient is 61 yo on 4L oxygen SKIN: Warm and dry. HEAD: Normocephalic. EYES: No scleral icterus. No injection or drainage. NECK: Supple, trachea midline. No JVD or lymphadenopathy. CARDIOVASCULAR: Regular rate and rhythm without murmurs, gallops, or rubs. RESPIRATORY: Coarse BS, GASTROINTESTINAL: Abdomen soft, non-tender, nondistended. MUSCULOSKELETAL: No cyanosis, or edema. Neuro: Awake and alert A/P Assessment and Plan 1)Resp Insuff 2)B/L pulm infiltrates 3)COPD 4)Tobacco use, ETOH use 5)Bipolar disorder Plan Continue to wean down oxygen as eric keep sats >92% Bronchodilators ( DuoNeb, Symbicort, Spiriva) Continue with abx- Levaquin- monitor for signs of infections ( Fever, WBC) strep pneumonia and Legionella urinary Ag negative Follow up on Mycoplasma serology Evaluate for home oxygen prior to discharge. Continue treatment plan Prednisone 20 mg Daily DC plans underway Available prn over weekend. James Turcios MD Oct 29, 2017 18:07
[2017-10-29] MEDS: RESP: ALBUTEROL 2.5 MG/IPRATROPIUM 0.5 MG NEB (PRN) NEB (19:34)
[2017-10-29] MEDS: OLANZapine 10 MG TAB PO SCH (21:42)
[2017-10-29] MEDS: ALPRAZolam 0.5 MG TAB PO PRN (21:42)
[2017-10-30 03:30] VITALS: BP 117/70; PULSE 71; RESP 18; TEMP 97.6; O2SAT 95
[2017-10-30 08:13] VITALS: BP 112/64; PULSE 75; RESP 20; TEMP 97.6; O2SAT 100
[2017-10-30] MEDS: DOCUSATE SODIUM 50 MG/SENNA 8.6 MG TAB PO SCH (09:00)
[2017-10-30] MEDS: FUROSEMIDE 40 MG TAB PO SCH (09:00)
[2017-10-30] MEDS: LACTOBACILLUS ACIDOPHILUS TAB PO SCH (09:50)
[2017-10-30] MEDS: FLUoxetine HCL 20 MG CAP PO SCH (09:51)
[2017-10-30] MEDS: POTASSIUM CHLORIDE 20 MEQ CONTROLLED RELEASE TAB PO SCH (09:51)
[2017-10-30] MEDS: THIAMINE HCL 100 MG TAB PO SCH (09:51)
[2017-10-30] MEDS: PRAVASTATIN SOD 40 MG TAB PO SCH (09:51)
[2017-10-30] MEDS: LEVOFLOXACIN 750 MG TAB PO SCH (09:51)
[2017-10-30] MEDS: ALPRAZolam 0.5 MG TAB PO PRN (09:51)
[2017-10-30] MEDS: guaiFENesin E.R. 600 MG TAB PO SCH (09:51)
[2017-10-30] MEDS: predniSONE 20 MG TAB PO SCH (09:52)
[2017-10-30] MEDS: GABAPENTIN 300 MG CAP PO SCH ×2 (09:52→14:05)
[2017-10-30] MEDS: BUDESONIDE-FORMOTEROL 160/4.5 MCG INHALER INH SCH (09:53)
[2017-10-30] MEDS: SODIUM CHLORIDE 0.9% FLUSH 10 ML FLUSH IV FLUSH SCH (09:53)
[2017-10-30] MEDS: TIOTROPIUM BROMIDE 18 MCG INH INH SCH (09:53)
--- NOTE | 2017-10-30 13:39 | HHI.PR ---
Subjective Remarks 60-year-old female with a PMH of Anxiety, Depression, Bipolar Disorder, HTN, Hyperlipidemia, COPD and Alcohol Abuse who is brought to the ER by EMS after a fall with apparent toe injury PATIENT AWAITS APPROVAL FOR SNF FROM INSURANCE COMPANY PATIENT NOW IS STATING SHE WANTS TO GO HOME WITH HHC WILL NEED A WALKER Objective Vitals Vital Signs Date Time Temp Pulse Resp B/P (MAP) Pulse Ox O2 Delivery O2 Flow Rate FiO2 10/30/17 09:45 Room Air 10/30/17 09:07 21 10/30/17 08:13 97.6 75 20 112/64 (80) 100 10/30/17 03:30 97.6 71 18 117/70 (86) 95 10/29/17 23:30 97.5 65 17 104/66 (79) 93 10/29/17 19:34 94 21 10/29/17 19:30 97.8 80 17 97/60 (72) 95 10/29/17 18:47 Room Air 10/29/17 15:30 97.1 72 18 92/62 (72) 95 I/O 10/29/17 10/29/17 10/29/17 10/30/17 10/30/17 10/30/17 07:00 15:00 23:00 07:00 15:00 23:00 Intake Total 360 ml 500 ml Balance 360 ml 500 ml Intake Oral 360 ml 500 ml # Voids 6 4 5 # Bowel Movements 2 Result Diagram: 10/27/17 0544 10/27/17 0546 Imaging Last Impressions Sacrum and Coccyx X-Ray 10/29/17 0000 Signed Impressions: CONCLUSION: 1. The sacrum and coccyx are intact in appearance. 2. Grade 1 anterior spondylolisthesis of L5 on S1 of approximately 1 centimete r. There are degenerative disc changes at this level. Lower Extremity Ultrasound 10/27/17 0000 Signed Impressions: CONCLUSION: No DVT. Chest X-Ray 10/23/17 0000 Signed Impressions: CONCLUSION: Improved aeration of the lungs with partial clearing of the of bilateral consol idation documented previously. There is continued mild interstitial and airspac e opacities bilaterally primarily in the upper lung zones. CT Angiography 10/20/17 0000 Signed Impressions: CONCLUSION: 1. No evidence of pulmonary embolus. 2. Patchy mixed groundglass opacity and consolidation in the lungs bilaterally may represent infection or asymmetric edema. 3. Small bilateral pleural effusions. 4. Coronary artery calcifications. 5. Moderate-sized hiatal hernia nonspecific mild diffuse esophageal wall thick ening. Knee X-Ray 10/19/17 0000 Signed Impressions: CONCLUSION: Severe tricompartmental osteoarthritis with a large joint effusion. No definite acute fracture identified. Extremity Arterial Study 10/18/17 0000 Signed Impressions: CONCLUSION: 1. There is moderate vascular occlusive disease on the left and further charac terization with CT angiography and runoff is recommended. Head CT 10/17/171947 Signed Impressions: CONCLUSION: 1. No acute intracranial abnormalities. Foot X-Ray 10/17/17 0000 Signed Impressions: CONCLUSION: 1. Fifth toe proximal phalanx fracture again seen. 2. No significant interval change. Objective Remarks GENERAL: SKIN: Warm and dry. HEAD: Atraumatic. Normocephalic. EYES: Pupils equal and round. No scleral icterus. No injection or drainage. ENT: No nasal bleeding or discharge. Mucous membranes pink and moist. NECK: Trachea midline. No JVD. CARDIOVASCULAR: Regular rate and rhythm. RESPIRATORY: No accessory muscle use. Clear to auscultation. Breath sounds equal bilaterally. GASTROINTESTINAL: Abdomen soft, non-tender, nondistended. Hepatic and splenic margins not palpable. MUSCULOSKELETAL: Extremities without clubbing, cyanosis, or edema. No obvious deformities. NEUROLOGICAL: Awake and alert. No obvious cranial nerve deficits. Motor grossly within normal limits. Five out of 5 muscle strength in the arms and legs. Normal speech. PSYCHIATRIC: Appropriate mood and affect; insight and judgment normal. Procedures status post right fifth toe, open, proximal phalanx fracture debridement and irrigation with laceration repair Medications and IVs Current Medications Tetanus/ Diphtheria Toxoids (Tetanus/ Diphtheria Tox Adult) 0.5 ml ONCE ONCE IM Last administered on 10/17/17at 20:36; Start 10/17/17 at 20:00; Stop 10/17/17 at 20:01; Status DC Lidocaine HCl (Xylocaine-Mpf 1% Inj) 30 ml ONCE ONCE INFIL ; Start 10/17/17 at 20:00; Stop 10/17/17 at 20:01; Status DC Cefazolin Sodium/ Dextrose 50 ml @ 100 mls/hr ONCE ONCE IV Last administered on 10/17/17at 20:34; Start 10/17/17 at 20:00; Stop 10/17/17 at 20:29; Status DC Dextrose (D50w (Syr) Inj) 25 ml ONCE ONCE IV PUSH Last administered on at 21:15; Start 10/17/17 at 20:30; Stop 10/17/17 at 20:33; Status DC Folic Acid (Folate) 1 mg DAILY PO Last administered on 10/22/17at 09:22; Start 10/18/17 at 09:00; Stop 10/23/17 at 08:59; Status DC Thiamine HCl (Vitamin B1) 100 mg DAILY PO Last administered on 10/30/17at 09:51 ; Start 10/17/17 at 21:30 Multivitamins/ Minerals Therapeutic (Theragran M Tab) 1 tab DAILY PO Last administered on 10/22/17at 09:18; Start 10/18/17 at 09:00; Stop 10/23/17 at 08:59 ; Status DC Flumazenil (Romazicon Inj) 0.2 mg Q1M PRN IV PUSH SEE LABEL COMMENTS; Start 02/24 at 21:30 Lorazepam (Ativan) 1 mg Q4H PRN PO CIWA 8 - 10; Start 10/17/17 at 21:30 Lorazepam (Ativan Inj) 1 mg Q4H PRN IV PUSH CIWA 8 - 10 Last administered on 03/27at 16:44; Start 10/17/17 at 21:30 Lorazepam (Ativan) 2 mg Q2H PRN PO CIWA 11-14; Start 10/17/17 at 21:30 Lorazepam (Ativan Inj) 2 mg Q2H PRN IV PUSH CIWA 11-14; Start 10/17/17 at 21:30 Lorazepam (Ativan Inj) 2 mg Q1H PRN IV PUSH CIWA 15-20; Start 10/17/17 at 21:30 Lorazepam (Ativan Inj) 2 mg Q15M PRN IV PUSH CIWA > 20; Start 10/17/17 at 21:30 Haloperidol Lactate (Haldol Inj) 2 mg Q15M PRN IM SEE LABEL COMMENTS; Start 02/24 at 21:30; Stop 10/20/17 at 02:10; Status DC Sodium Chloride 1,000 ml @ 100 mls/hr Q10H IV Last administered on 10/20/17at 09:35; Start 10/17/17 at 21:22; Stop 10/22/17 at 09:33; Status DC Sodium Chloride (NS Flush) 2 ml UNSCH PRN IV FLUSH FLUSH AFTER USING IV ACCESS Last administered on 10/24/17at 05:59; Start 10/17/17 at 21:30 Sodium Chloride (NS Flush) 2 ml BID IV FLUSH Last administered on 10/30/17at 09: 53; Start 10/18/17 at 09:00 Acetaminophen (Tylenol) 650 mg Q6H PRN PO FEVER Last administered on 10/18/17at 22:55; Start 10/17/17 at 21:30 Morphine Sulfate (Morphine Inj) 2 mg Q3H PRN IV PUSH BREAKTHROUGH PAIN; Start 10/17/17 at 21:30 Oxycodone HCl (Roxicodone) 5 mg Q4H PRN PO PAIN SCALE 3 TO 5 Last administered on 10/19/17at 15:38; Start 10/17/17 at 21:30 Senna/Docusate Sodium (Genny-Colace) 1 tab BID PO Last administered on at 19:46; Start 10/18/17 at 09:00 Magnesium Hydroxide (Milk Of Magnesia Liq) 30 ml Q12H PRN PO Mild constipation ; Start 10/17/17 at 21:30 Sennosides (Senokot) 17.2 mg Q12H PRN PO Moderate constipation; Start 10/17/17 at 21:30 Bisacodyl (Dulcolax Supp) 10 mg DAILY PRN RECTAL SEVERE CONSITIPATION/ IF NPO ; Start 10/17/17 at 21:30 Lactulose (Lactulose Liq) 30 ml DAILY PRN PO SEVERE CONSITIPATION/ IF PO; Start 10/17/17 at 21:30 Bupivacaine HCl (Marcaine Pf 0.5% Inj) 30 ml STK-MED ONCE .ROUTE ; Start at 22:16; Stop 10/17/17 at 22:17; Status DC Gentamicin Sulfate (Gentamicin Inj) 240 mg STK-MED ONCE .ROUTE ; Start 10/17/17 at 22:16; Stop 10/17/17 at 22:17; Status DC Miscellaneous Information (Misc Post-op Orders (for Pharmacy)) STAT ONCE XX ; Start 10/17/17 at 22:30; Stop 10/17/17 at 22:35; Status DC Cefazolin Sodium/ Dextrose 50 ml @ 100 mls/hr Q8H IV Last administered on 10/20at 04:24; Start 10/18/17 at 04:00; Stop 10/20/17 at 10:22; Status DC Clindamycin Phosphate 600 mg/ Sodium Chloride 54 ml @ 108 mls/hr Q8H IV Last administered on 10/20/17at 09:33; Start 10/18/17 at 00:00; Stop 10/20/17 at 10:22 ; Status DC Lidocaine HCl (Xylocaine 1% Inj (50 ml)) 50 ml STK-MED ONCE .ROUTE ; Start 10/17 at 22:45; Stop 10/17/17 at 22:46; Status DC Clindamycin Phosphate (Cleocin Inj) 600 mg STK-MED ONCE .ROUTE ; Start 10/17/17 at 22:52; Stop 10/17/17 at 22:53; Status DC Sugammadex Sodium (Bridion Inj) 200 mg STK-MED ONCE IV PUSH ; Start 10/17/17 at 23:09; Stop 10/17/17 at 23:10; Status DC Midazolam HCl (Versed Inj) 2 mg STK-MED ONCE .ROUTE ; Start 10/17/17 at 23:27; Stop 10/17/17 at 23:28; Status DC Fentanyl Citrate (fentaNYL INJ) 100 mcg STK-MED ONCE .ROUTE ; Start 10/17/17 at 23:27; Stop 10/17/17 at 23:28; Status DC Miscellaneous Information ([facility] Nursing Information) ALL NURSING DEPARTME... UNSCH PRN .XX SEE LABEL COMMENTS; Start 10/17/17 at 23:30; Stop 10/18/17 at 23: 29; Status DC Ondansetron HCl (Zofran Odt) 4 mg Q6H PRN SL NAUSEA OR VOMITING Last administered on 10/18/17at 04:51; Start 10/18/17 at 04:45; Stop 10/18/17 at 11:20 ; Status DC Fluoxetine HCl (PROzac) 40 mg DAILY PO Last administered on 10/30/17at 09:51; Start 10/19/17 at 09:00 Gabapentin (Neurontin) 600 mg TID PO Last administered on 10/30/17at 09:52; Start 10/18/17 at 13:00 Lactobacillus Acidophilus (Lactinex) 1 tab DAILY PO Last administered on at 09:50; Start 10/19/17 at 09:00 Pravastatin Sodium (Pravachol) 40 mg DAILY PO Last administered on 10/30/17at 09 :51; Start 10/19/17 at 09:00 Olanzapine (ZyPREXA) 20 mg HS PO Last administered on 10/29/17at 21:42; Start at 21:00 Metoclopramide HCl (Reglan Inj) 5 mg Q6H PRN IV PUSH NAUSEA Last administered on 10/24/17at 20:02; Start 10/18/17 at 11:00 Alprazolam (Xanax) 0.5 mg BID PO Last administered on 10/19/17at 08:11; Start at 21:00; Stop 10/19/17 at 16:55; Status DC Lidocaine HCl (Xylocaine-Mpf 1% Inj) 5 ml STK-MED ONCE OTHER ; Start 10/17/17 at 12:00; Stop 10/18/17 at 11:46; Status DC Rocuronium [place] (Zemuron Inj) 50 mg STK-MED ONCE IV PUSH ; Start 10/17/17 at 12:00; Stop 10/18/17 at 11:46; Status DC Ephedrine Sulfate (ePHEDrine/NS 25 MG/5 ML SYR) 25 mg STK-MED ONCE IV ; Start at 12:00; Stop 10/18/17 at 11:46; Status DC Dexamethasone Sodium Phosphate (Decadron Inj) 4 mg STK-MED ONCE IV ; Start 10/17 at 12:00; Stop 10/18/17 at 11:46; Status DC Ondansetron HCl (Zofran Inj) 4 mg STK-MED ONCE IV PUSH ; Start 10/17/17 at 12:00 ; Stop 10/18/17 at 11:46; Status DC Propofol (Diprivan 200 Mg/20 ml Inj) 200 mg STK-MED ONCE IV ; Start 10/17/17 at 12:00; Stop 10/18/17 at 11:46; Status DC Baclofen (Lioresal) 10 mg Q8HR PO Last administered on 10/29/17at 21:42; Start 10/19/17 at 09:00 Chlordiazepoxide (Librium) 10 mg TID PO Last administered on 10/21/17at 12:16; Start 10/19/17 at 13:00; Stop 10/21/17 at 16:34; Status DC Oxycodone HCl (Roxicodone) 10 mg Q4H PRN PO Pain 6-10 Last administered on 10/20at 20:18; Start 10/19/17 at 18:00 Albuterol/ Ipratropium (Duoneb Neb) 1 ampule Q4HR NEB PRN NEB SOB/WHEEZING Last administered on 10/29/17at 19:34; Start 10/19/17 at 22:15 Potassium Chloride (KCl) 40 meq ONCE ONCE PO Last administered on 10/19/17at 23 :38; Start 10/19/17 at 23:15; Stop 10/19/17 at 23:16; Status DC Iohexol (Omnipaque 350 Inj) 75 ml STK-MED ONCE IVCONTRAST Last administered on 10/20/17at 00:33; Start 10/20/17 at 00:33; Stop 10/20/17 at 00:34; Status DC Albuterol/ Ipratropium (Duoneb Neb) 1 ampule Q6HR NEB NEB Last administered on 10/24/17at 03:18; Start 10/20/17 at 04:00; Stop 10/24/17 at 03:59; Status DC Piperacillin Sod/ Tazobactam Sod 100 ml @ 200 mls/hr Q6H IV Last administered on 10/21/17at 08:34; Start 10/20/17 at 03:30; Stop 10/21/17 at 11:31; Status DC Azithromycin 500 mg/Sodium Chloride 250 ml @ 250 mls/hr Q24H IV Last administered on 10/21/17at 02:18; Start 10/20/17 at 02:15; Stop 10/21/17 at 11:31 ; Status DC Budesonide/ Formoterol Fumarate (Symbicort 160-4.5 Mcg Inh) 1 puff Q12HR INH Last administered on 10/30/17at 09:53; Start 10/20/17 at 10:30 Guaifenesin (Mucinex Er) 600 mg BID PO Last administered on 10/30/17at 09:51; Start 10/20/17 at 10:30 Furosemide (Lasix Inj) 40 mg ONCE ONCE IV PUSH Last administered on 10/21/17at 03:10; Start 10/21/17 at 03:00; Stop 10/21/17 at 03:01; Status DC Potassium Chloride 100 ml @ 50 mls/hr Q2H IV ; Start 10/21/17 at 03:00; Stop at 03:00; Status DC Vancomycin HCl 1000 mg/Sodium Chloride 250 ml @ 250 mls/hr ONCE ONCE IV ; Start 10/21/17 at 03:00; Stop 10/21/17 at 03:59; Status UNV Pharmacy Profile Note 0 ml @ 0 mls/hr UNSCH OTHER ; Start 10/21/17 at 03:00; Stop 10/21/17 at 13:24; Status DC Vancomycin HCl 1500 mg/Sodium Chloride 515 ml @ 257.5 mls/ hr ONCE ONCE IV Last administered on 10/21/17at 04:25; Start 10/21/17 at 03:15; Stop 10/21/17 at 05:14; Status DC Furosemide (Lasix Inj) 40 mg DAILY IV PUSH Last administered on 10/23/17at 09:49 ; Start 10/21/17 at 09:00; Stop 10/24/17 at 08:59; Status DC Potassium Chloride (KCl) 20 meq DAILY PO Last administered on 10/22/17at 09:18; Start 10/21/17 at 09:00; Stop 10/22/17 at 09:33; Status DC Methylprednisolone Sodium Succinate (SoluMEDROL INJ) 40 mg Q8HR IV PUSH Last administered on 10/22/17at 12:49; Start 10/21/17 at 07:45; Stop 10/22/17 at 13:17 ; Status DC Levofloxacin/ Dextrose 150 ml @ 100 mls/hr Q24H IV Last administered on at 13:07; Start 10/21/17 at 12:00; Stop 10/27/17 at 09:04; Status DC Tiotropium [place] (Spiriva Inh) 18 mcg DAILY INH Last administered on 09:53; Start 10/21/17 at 13:30 Lorazepam (Ativan) 0.5 mg Q6H PRN PO Anxiety Last administered on 10/22/17 09: 22; Start 10/21/17 at 16:45; Stop 10/24/17 at 14:49; Status DC Potassium Chloride (KCl) 40 meq DAILY PO Last administered on 10/30/17 09:51; Start 10/23/17 at 09:00 Potassium Chloride (KCl) 40 meq ONCE ONCE PO ; Start 10/22/17 at 09:30; Stop at 09:35; Status DC Methylprednisolone Sodium Succinate (SoluMEDROL INJ) 60 mg Q8HR IV PUSH Last administered on 10/25/17 05:24; Start 10/22/17 at 22:00; Stop 10/25/17 at 09:49 ; Status DC Enoxaparin Sodium (Lovenox Inj) 40 mg Q24H SQ Last administered on 10/29/17 14 :46; Start 10/22/17 at 15:00 Potassium Chloride (KCl) 20 meq ONCE ONCE PO Last administered on 10/23/17at 14 :39; Start 10/23/17 at 11:00; Stop 10/23/17 at 11:01; Status DC Alprazolam (Xanax) 0.5 mg Q12H PRN PO ANXIETY AND/OR AGITATION Last administered on 10/30/17 09:51; Start 10/24/17 at 15:00 Furosemide (Lasix) 40 mg DAILY PO Last administered on 10/27/17 08:55; Start 10/25/17 at 09:00 Calcium Carbonate (Tums Chew) 500 mg Q2H PRN CHEW INDIGESTION Last administered on 10/29/17 14:46; Start 10/24/17 at 23:30 Methylprednisolone Sodium Succinate (SoluMEDROL INJ) 40 mg Q8HR IV PUSH Last administered on 10/26/17 05:52; Start 10/25/17 at 14:00; Stop 10/26/17 at 12:41 ; Status DC Albuterol/ Ipratropium (Duoneb Neb) 1 ampule Q6HR WHILE AWAKE NEB NEB Last administered on 10/29/17at 08:48; Start 10/25/17 at 14:00; Stop 10/29/17 at 13:59 ; Status DC Prednisone (Deltasone) 30 mg BID PO Last administered on 10/27/17at 08:54; Start 10/26/17 at 21:00; Stop 10/27/17 at 09:04; Status DC Prednisone (Deltasone) 20 mg BID PO Last administered on 10/28/17at 21:47; Start 10/27/17 at 21:00; Stop 10/29/17 at 07:48; Status DC Levofloxacin (Levaquin) 750 mg ONCE ONCE PO Last administered on 10/27/17at 10: 34; Start 10/27/17 at 10:15; Stop 10/27/17 at 10:16; Status DC Levofloxacin (Levaquin) 750 mg DAILY PO Last administered on 10/30/17at 09:51; Start 10/28/17 at 09:00 Ondansetron HCl (Zofran Odt) 4 mg Q6H PRN SL nausea Last administered on at 20:07; Start 10/28/17 at 20:00 Prednisone (Deltasone) 20 mg DAILY PO Last administered on 10/30/17at 09:52; Start 10/29/17 at 09:00 A/P Problem List: (1) Community acquired pneumonia ICD Code: J18.9 - Pneumonia, unspecified organism Status: Acute (2) Acute exacerbation of chronic obstructive pulmonary disease (COPD) ICD Code: J44.1 - Chronic obstructive pulmonary disease with (acute) exacerbation Status: Acute (3) Fall ICD Code: W19.XXXA - Unspecified fall, initial encounter Status: Acute (4) Open fracture of toe of right foot ICD Code: S92.911B - Unspecified fracture of right toe(s), initial encounter for open fracture Status: Acute (5) Alcohol intoxication ICD Code: F10.929 - Alcohol use, unspecified with intoxication, unspecified Status: Resolved (6) Elevated LFTs ICD Code: R94.5 - Abnormal results of liver function studies Status: Resolved Assessment and Plan 60-year-old female with a PMH of Anxiety, Depression, Bipolar Disorder, HTN, Hyperlipidemia, COPD and Alcohol Abuse who is brought to the ER by EMS after a fall with apparent toe injury 1. Community-acquired pneumonia, acute - clinically improving and placed on Levaquin during hospitalization with oxygen support. Currently off oxygen on room air, 94 % 2. COPD exacerbation, patient is 2PPD smoker >20 years - continue to wean Patient was placed on Duo nebs, Symbicort, initially on Lasix IV. Switch to 40mg po daily upon discharge. Systolic function mildly reduced EF 45%. Patient was also placed on IV Solu-Medrol and transition to prednisone 40 daily with continued taper dosing to prednisone 20 p.o. daily today - 3. Status post fall Open toe fracture Status post right proximal fifth toe ORIF, I&D and repair of the laceration by Dr. Benedict -Pain medication given oxycodone 5 and 10mg, along with baclofen, patient underwent postoperative course -Physical therapy to eval and treat 4. Right knee pain with right knee effusion -Xray ordered, joint effusion -Orthopedic consulted, joint aspiration has been done. Appreciate recommendations. -Gram stain culture moderate WBCs no organisms seen. No acid-fast bacilli seen, no fungal elements seen -Aspirate showed calcium pyrophosphate crystals. Recommend NSAIDs -Continue knee elevation leg elevation. Pain management 5.Alcohol abuse, acute alcohol intoxication Elevated LFTs -Patient is counseled on alcohol use. -Placed on CIWA Protocol - Patient does not appear to be in withdrawals during hospitalization -Trend of LFTs improving 6. Bipolar disorder -Continue Prozac, Zyprexa 7. DVT prop SCDs. Lovenox WANTS TO GO HOME Problem Qualifiers (1) Fall: Qualified Codes: W19.XXXA - Unspecified fall, initial encounter (2) Open fracture of toe of right foot: Qualified Codes: S92.414B - Nondisplaced fracture of proximal phalanx of right great toe, initial encounter for open fracture Lamont Valdez DO Oct 30, 2017 13:39
--- NOTE | 2017-10-30 13:41 | HHI.FF ---
Face to Face Verification Diagnosis: (1) Alcohol abuse (2) Alcohol intoxication (3) Community acquired pneumonia (4) Acute exacerbation of chronic obstructive pulmonary disease (COPD) (5) PNA (pneumonia) (6) Arthritis of knee, right (7) Open fracture of toe of right foot (8) Fall (9) Anxiety and depression Physical Therapy Order: Evaluate and Treat, Improve ambulation, Strength and gait training Occupational Therapy Order: Evaluate and Treat, Improve ADL, Gross motor coordination, Fine motor coordination Home Health Nursing Order: Wound care and dressing changes Nursing assessment with vital signs Home Health Aide Order: To Assist In: Bathing and personal care, customer service associate and meal prep I have seen patient Negra Osorio on 10/30/17. My clinical findings support the need for the requested home health care services because: Ltd mobility - disease progression Patient has SOB Med compliance is questionable I certify that my clinical findings support that this patient is homebound because: Post-op weakness Hx COPD- exertion dyspnea/weakness Unsteady gait/balance Lamont Valdez DO Oct 30, 2017 13:41
--- NOTE | 2017-10-30 13:47 | HHI.DS ---
Discharge Summary Admission Date Oct 17, 2017 at 21:22 Discharge Date: Oct 30, 2017 Admitting Diagnosis Open toe fracture, alcohol intoxication (1) Community acquired pneumonia ICD Code: J18.9 - Pneumonia, unspecified organism Diagnosis: Principal Status: Acute (2) Acute exacerbation of chronic obstructive pulmonary disease (COPD) ICD Code: J44.1 - Chronic obstructive pulmonary disease with (acute) exacerbation Diagnosis: Principal Status: Acute (3) Fall ICD Code: W19.XXXA - Unspecified fall, initial encounter Diagnosis: Principal Status: Acute (4) Open fracture of toe of right foot ICD Code: S92.911B - Unspecified fracture of right toe(s), initial encounter for open fracture Diagnosis: Principal Status: Acute (5) Alcohol intoxication ICD Code: F10.929 - Alcohol use, unspecified with intoxication, unspecified Diagnosis: Secondary Status: Resolved (6) Elevated LFTs ICD Code: R94.5 - Abnormal results of liver function studies Diagnosis: Secondary Status: Resolved Procedures status post right fifth toe, open, proximal phalanx fracture debridement and irrigation with laceration repair Brief History - From Admission This is a 60-year-old female with a PMH of Anxiety, Depression, Bipolar Disorder , HTN, Hyperlipidemia, COPD and Alcohol Abuse who is brought to the ER by EMS after a fall with apparent toe injury. Patient is acutely intoxicated. Per report patient was at a friend's house and had gone to the bathroom at which time she had a slip and fall. Reports hitting her head on bathtub. Denies LOC. Reports significant pain to right fifth toe. Pain is constant, severe, 8/ 10. On arrival, BP 108/62, HR 68, O2 sat 99% on RA, Afebrile. CBC at baseline. Chemistry essentially at baseline. LFTs elevated, improved in comparison to previous labs. Alcohol 269. Foot X-ray with fracture proximal phalanx right fifth toe. CT Head with no acute findings. Dr. Benedict consulted , plan is for surgical intervention this evening, pt will need at least 24hrs of IV Abx after surgery. CBC/BMP: 10/27/17 0544 10/27/17 0546 Imaging Last Impressions Sacrum and Coccyx X-Ray 10/29/17 Signed Impressions: CONCLUSION: 1. The sacrum and coccyx are intact in appearance. 2. Grade 1 anterior spondylolisthesis of L5 on S1 of approximately 1 centimete r. There are degenerative disc changes at this level. Lower Extremity Ultrasound 10/27/17 Signed Impressions: CONCLUSION: No DVT. Chest X-Ray 10/23/17 Signed Impressions: CONCLUSION: Improved aeration of the lungs with partial clearing of the of bilateral consol idation documented previously. There is continued mild interstitial and airspac e opacities bilaterally primarily in the upper lung zones. CT Angiography 10/20/17 Signed Impressions: CONCLUSION: 1. No evidence of pulmonary embolus. 2. Patchy mixed groundglass opacity and consolidation in the lungs bilaterally may represent infection or asymmetric edema. 3. Small bilateral pleural effusions. 4. Coronary artery calcifications. 5. Moderate-sized hiatal hernia nonspecific mild diffuse esophageal wall thick ening. Knee X-Ray 10/19/17 Signed Impressions: CONCLUSION: Severe tricompartmental osteoarthritis with a large joint effusion. No definite acute fracture identified. Extremity Arterial Study 10/18/17 Signed Impressions: CONCLUSION: 1. There is moderate vascular occlusive disease on the left and further charac terization with CT angiography and runoff is recommended. Head CT 10/17/171947 Signed Impressions: CONCLUSION: 1. No acute intracranial abnormalities. Foot X-Ray 10/17/17 Signed Impressions: CONCLUSION: 1. Fifth toe proximal phalanx fracture again seen. 2. No significant interval change. PE at Discharge GENERAL: SKIN: Warm and dry. HEAD: Atraumatic. Normocephalic. EYES: Pupils equal and round. No scleral icterus. No injection or drainage. ENT: No nasal bleeding or discharge. Mucous membranes pink and moist. NECK: Trachea midline. No JVD. CARDIOVASCULAR: Regular rate and rhythm. RESPIRATORY: No accessory muscle use. Clear to auscultation. Breath sounds equal bilaterally. GASTROINTESTINAL: Abdomen soft, non-tender, nondistended. Hepatic and splenic margins not palpable. MUSCULOSKELETAL: Extremities without clubbing, cyanosis, or edema. No obvious deformities. NEUROLOGICAL: Awake and alert. No obvious cranial nerve deficits. Motor grossly within normal limits. Five out of 5 muscle strength in the arms and legs. Normal speech. PSYCHIATRIC: Appropriate mood and affect; insight and judgment normal. Hospital Course 60-year-old female with a PMH of Anxiety, Depression, Bipolar Disorder, HTN, Hyperlipidemia, COPD and Alcohol Abuse who is brought to the ER by EMS after a fall with apparent toe injury 1. Community-acquired pneumonia, acute - clinically improving and placed on Levaquin during hospitalization with oxygen support. Currently off oxygen on room air, 94 % 2. COPD exacerbation, patient is 2PPD smoker >20 years - continue to wean Patient was placed on Duo nebs, Symbicort, initially on Lasix IV. Switch to 40mg po daily upon discharge. Systolic function mildly reduced EF 45%. Patient was also placed on IV Solu-Medrol and transition to prednisone 40 daily with continued taper dosing to prednisone 20 p.o. daily today - 3. Status post fall Open toe fracture Status post right proximal fifth toe ORIF, I&D and repair of the laceration by Dr. Benedict -Pain medication given oxycodone 5 and 10mg, along with baclofen, patient underwent postoperative course -Physical therapy to eval and treat 4. Right knee pain with right knee effusion -Xray ordered, joint effusion -Orthopedic consulted, joint aspiration has been done. Appreciate recommendations. -Gram stain culture moderate WBCs no organisms seen. No acid-fast bacilli seen, no fungal elements seen -Aspirate showed calcium pyrophosphate crystals. Recommend NSAIDs -Continue knee elevation leg elevation. Pain management 5.Alcohol abuse, acute alcohol intoxication Elevated LFTs -Patient is counseled on alcohol use. -Placed on CIWA Protocol - Patient does not appear to be in withdrawals during hospitalization -Trend of LFTs improving 6. Bipolar disorder -Continue Prozac, Zyprexa 7. DVT prop SCDs. Lovenox DC TO HOME TODAY Pt Condition on Discharge: Stable Discharge Disposition: Disch w/ Home Health Serv Discharge Time: > 30 minutes Discharge Instructions DIET: Follow Instructions for: Heart Healthy Diet Speech Therapy-Diet Recommends: Regular Activities you can perform: Weight Bearing as Leann Other Activity Instructions: Needs to wear postop shoe when out of bed Follow up Referrals: PCP Follow-up PCP Follow-up - 2-3 Days with Fabricio Mcgrath MD Podiatry - 1 Week with Idalmis Benedict DPM New Medications: Levofloxacin (Levaquin) 750 Mg Tablet 750 MG PO DAILY for Infection for 5 Days, #5 TAB 0 Refills Prednisone (Prednisone) 20 Mg Tab 20 MG PO BID for COPD for 7 Days, #14 TAB 0 Refills Prednisone (Prednisone) 20 Mg Tab 20 MG PO DIRECTED for Inflammation, #9 TAB 0 Refills 40 MG a day x 2 days, then 20 MG daily x 2 days, then 10 MG daily x 3 days Baclofen (Baclofen) 10 Mg Tab 10 MG PO Q8HR for Muscle Spasm, #15 TAB Folic Acid (Folic Acid) 1 Mg Tablet 1 MG PO DAILY for Nutritional Supplement, #30 TAB Furosemide (Furosemide) 40 Mg Tab 40 MG PO DAILY for decrease fluid, #7 TAB Multiple Vitamins W/ Minerals (Thera M Plus) 1 Tab 1 TAB PO DAILY for Nutritional Supplement, #30 TAB Oxycodone (Oxycodone) 5 Mg Tab 5 MG PO Q4H PRN for PAIN, #12 TAB Potassium Chloride Microencaps (Potassium Chloride Microencaps) 20 Meq Tab 40 MEQ PO DAILY for Electrolyte Replacement, #7 TAB Thiamine HCl (Gnp Vitamin B-1) 100 Mg Tab 100 MG PO DAILY for Nutritional Supplement, #30 TAB Tiotropium Inh (Spiriva Handihaler) 18 Mcg Cap 18 MCG INH DAILY for COPD, #30 CAP 1 capsule = 18 mcg [Albuterol-Ipratropium Neb] () 1 AMPULE NEBU 1 AMPULE NEB Q6HR NEB for Shortness of Breath, #30 [Albuterol-Ipratropium Neb] () 1 AMPULE NEBU 1 AMPULE NEB Q4HR NEB PRN for SOB/WHEEZING, #30 AMPULE [Budeson-Formot 160-4.5 Mcg Inh] () 60 PUFF AERO 1 PUFF INH Q12HR for COPD, #1 INHALER [guaiFENesin ER] () 600 MG TABCR 600 MG PO BID for Cough, #12 TAB Continued Medications: Bupropion HCl (Bupropion HCl) 75 Mg Tab 75 MG PO DAILY for Control Depression, TAB 0 Refills Fluoxetine (Fluoxetine) 40 Mg Cap 40 CAP PO DAILY, #30 CAP 0 Refills Gabapentin (Gabapentin) 600 Mg Tab 600 MG PO TID, #90 TAB 0 Refills Lactobacillus Acidophilus (Lactobacillus Acidophilus) 1 Tab Tab 1 TAB PO DAILY for Nutritional Supplement, #30 TAB 0 Refills Take with food Lovastatin (Lovastatin) 40 Mg Tab 40 MG PO DAILY for Cholesterol Management, #30 TAB 0 Refills Meloxicam (Mobic) 7.5 Mg Tab 7.5 MG PO DAILY for ARTHRITIS, TAB 0 Refills Olanzapine (Olanzapine) 20 Mg Tab 20 MG PO HS, #30 TAB 0 Refills Lamont Valdez DO Oct 30, 2017 13:47
[2017-10-30] MEDS: BACLOFEN 10 MG TAB PO SCH (14:05)
== END 2017-10-30 15:50 | disposition home health service (06) | DRG 562 ==
LOC: NEPD 19:38 → NEDA 21:22 → N06A 10-18 00:05
PROVIDERS: ADMIT Hospitalist; ATTEND Hospitalist
PROC: 0HDMXZZ Extraction of Right Foot Skin, External Approach (ICD-10-PCS; 2017-10-17)
PROC: 3E10X8Z Irrigation of Skin and Mucous Membranes using Irrigating Substance (ICD-10-PCS; principal; 2017-10-17 22:27)
PROC: 0S9C3ZX Drainage of Right Knee Joint, Percutaneous Approach, Diagnostic (ICD-10-PCS; 2017-10-20)
DX: S92.511B Displaced fracture of proximal phalanx of right lesser toe(s), initial encounter for open fracture (principal); J18.9 Pneumonia, unspecified organism; S09.90XA Unspecified injury of head, initial encounter; S96.021A Laceration of muscle and tendon of long flexor muscle of toe at ankle and foot level, right foot, initial encounter; J44.0 Chronic obstructive pulmonary disease with (acute) lower respiratory infection; J44.1 Chronic obstructive pulmonary disease with (acute) exacerbation; I10 Essential (primary) hypertension; W01.198A Fall on same level from slipping, tripping and stumbling with subsequent striking against other object, initial encounter; Y93.89 Activity, other specified; Y92.002 Bathroom of unspecified non-institutional (private) residence as the place of occurrence of the external cause; F41.9 Anxiety disorder, unspecified; F31.9 Bipolar disorder, unspecified; F10.129 Alcohol abuse with intoxication, unspecified; E78.5 Hyperlipidemia, unspecified; F17.210 Nicotine dependence, cigarettes, uncomplicated; R94.5 Abnormal results of liver function studies; Y90.8 Blood alcohol level of 240 mg/100 ml or more; M17.11 Unilateral primary osteoarthritis, right knee; E66.9 Obesity, unspecified; Z68.30 Body mass index [BMI] 30.0-30.9, adult; Z90.49 Acquired absence of other specified parts of digestive tract; I25.10 Atherosclerotic heart disease of native coronary artery without angina pectoris; G47.30 Sleep apnea, unspecified; E03.9 Hypothyroidism, unspecified; K21.9 Gastro-esophageal reflux disease without esophagitis; K22.9 Disease of esophagus, unspecified; K44.9 Diaphragmatic hernia without obstruction or gangrene; R19.7 Diarrhea, unspecified; R79.89 Other specified abnormal findings of blood chemistry
CPT/HCPCS: 36600; 70450; 71045; 71275; 72220; 73564; 73630; 80048; 80053; 80307; 82805; 82948; 83605; 83735; 83880; 84439; 84443; 85025; 85027; 85610; 85730; 86738; 87015; 87070; 87102; 87116; 87205; 87206; 87449; 89051; 89060; 90471; 90714; 93005; 93306; 93922; 93970; 94150; 94640; 94664; 94667; 94668; 96365; 96375; J0456; J0690; J1100; J1580; J1650; J1940; J1956; J2060; J2250; J2270; J2405; J2543; J2765; J2920; J2930; J3010; J3370; J7030; J7040; J7050; J7512; L3260; Q9967

== ENCOUNTER 2018-06-27 11:47 | Inpatient (IN) ==
[2018-06-27] MEDS ORDERED: Lidocaine 1% Inj 50 ML Vial INFILTRATN ONE (12:30)
[2018-06-27] MEDS ORDERED: Tetanus/Diphtheria Toxoid Adult Vaccine Inj 0.5 ML Vial IM ONE (12:30)
[2018-06-27 12:36] LABS: Baso % (Auto) 0.3 % (0.0-2.0); Hematocrit 39.3 % (35.0-46.0); Hemoglobin 13.9 gm/dL (11.6-15.3); Lymph # (Auto) 0.8 th/mm3 (1.0-4.8); Lymph % (Auto) 9.4 % (9.0-44.0); Mean Corpuscular HGB Conc 35.3 % (32.0-36.0); Mean Corpuscular Hemoglobin 36.7 pg (27.0-34.0); Mean Corpuscular Volume 103.9 fL (80.0-100.0); Mean Platelet Volume 7.9 fL (7.0-11.0); Mono # (Auto) 0.2 th/mm3 (0.0-0.9); Mono % (Auto) 2.3 % (0.0-8.0); Neut # (Auto) 7.5 th/mm3 (1.8-7.7); Platelet Count 180 th/mm3 (150-450); Red Blood Count 3.79 mil/mm3 (4.00-5.30); White Blood Count 8.5 th/mm3 (4.0-11.0)
--- NOTE | 2018-06-27 12:44 | ED ---
HPI General Chief Complaint: Fall Stated Complaint: Fall Time Seen by Provider: 06/27/18 11:48 Source: patient and EMS Mode of arrival: EMS Limitations: no limitations History of Present Illness HPI Narrative: 62 year old female who presents to the ED today for evaluation of altered mental status and traumatic injury to the left eye. According to EMS patient was found altered with a black eye. When EMS asked the patient said she fell but when I asked her she denied falling or any head pain. She states she's been drinking and is intoxicated enough to be a poor historian. She reports chest pain, shortness of breath and abdominal pain but is unable to localize or explain her symptoms further. Patient does have a known history of alcohol use at this facility. She has been here for alcohol related events before. EVAC cannot really provide much information as it is unclear as to what medical conditions patient has. She does appear to answer some questions appropriately but is hard to get a good history from her. Related Data Home Medications Medication Instructions Recorded Confirmed Unable to Obtain Home Meds 06/27/18 06/27/18 Allergies Allergy/AdvReac Type Severity Reaction Status Date / Time hydroxyzine Allergy Severe HALLUCINATI Verified 06/27/18 11:57 ONS nortriptyline Allergy Severe UNKNOWN Verified 06/27/18 11:57 buspirone Allergy Intermediate UNKNOWN Verified 06/27/18 11:57 Review of Systems ROS Unobtainable ROS Unobtainable: unobtainable due to mental status [facility] Medical History Medical History Diabetes (Acute) Surgical history unknown (Acute) Social History Social History Smoking Status: Unknown if ever smoked How Often Do You Have a Drink Containing Alcohol: 4 or more times a week Recent Travel in [facility] within the Last 8 Weeks: No Recent Out of Country Travel within the Last 8 Weeks: No Immunization History Tetanus Immunization: Unable to Assess Exam Narrative Exam Narrative: GENERAL: Not well-groomed in no distress. SKIN: Focused skin assessment warm/dry. HEAD: Atraumatic. Normocephalic. Patient has a significant hematoma to the left eyelid on the upper and lower eyelid. She has a superficial abrasion to the left upper eyelid. EYES: Pupils equal and round. No scleral icterus. No injection or drainage. ENT: No nasal bleeding or discharge. Mucous membranes pink and moist. Tongue is midline. No uvula deviation. NECK: Trachea midline. No JVD. CARDIOVASCULAR: Regular rate and rhythm. No murmur appreciated. RESPIRATORY: No accessory muscle use. Clear to auscultation. Breath sounds equal bilaterally. GASTROINTESTINAL: Abdomen soft, non-tender, nondistended. Hepatic and splenic margins not palpable. MUSCULOSKELETAL: No obvious deformities. No clubbing. No cyanosis. No edema. Full range of motion of the upper and lower extremities bilaterally. 2+ pulses bilaterally. NEUROLOGICAL: Awake and alert. No obvious cranial nerve deficits. Motor grossly within normal limits. Normal speech. PSYCHIATRIC: Altered mood and affect; insight and judgment minimal Course Initial Documented Vital Signs Pulse Rate 94 H 06/27/18 12:34 Last Documented Vital Signs Pulse Rate 92 H 06/27/18 15:19 Respiratory Rate 24 06/27/18 15:19 Blood Pressure 122/91 H 06/27/18 15:19 Pulse Oximetry 91 L 06/27/18 15:19 Medical Decision Making [facility] Narrative Medical decision making narrative: 62-year-old female who presents to the ED for evaluation of altered mental status and head injury. Patient was properly examined and was found to have signs and symptoms consistent appears to be altered mental status. Unclear etiology at this time. Patient does have a known history of alcoholism. Labs and imaging were ordered. Labs and imaging were essentially unremarkable for acute disease other than elevated lactic acid. Patient does have significant head injury. Patient still altered. Patient had an episode where she stopped talking and it looks like she probably had a seizure. She did not had any movement of the arms or legs but she was unresponsive for some time. My attending himself Dr. Brownlee evaluate the patient at this time and recommend admission for further evaluation and treatment. Several was ordered by me. My attending spoke with Dr. Qureshi who agrees admission to his service. Medical Screen Exam Complete: Yes Emergency Medical Condition: Yes Differential Diagnosis Differential Diagnosis: Altered mental status versus alcoholism versus fall versus head injury versus ICH versus electrolyte normality Medical Records Medical records reviewed: Yes I reviewed the patient's medical records. Lab Data Lab results reviewed: Yes I reviewed the patient's lab results. Result diagrams: 06/27/18 12:10 06/27/18 12:10 Lab Results 06/27/18 06/27/18 06/27/18 Range/Units 12:10 12:10 12:10 WBC 8.5 (4.0-11.0) th/mm3 RBC 3.79 L (4.00-5.30) mil/mm3 Hgb 13.9 (11.6-15.3) gm/dL Hct 39.3 (35.0-46.0) % MCV 103.9 H (80.0-100.0) fL MCH 36.7 H (27.0-34.0) pg MCHC 35.3 (32.0-36.0) % RDW 15.0 (11.6-17.2) % Plt Count 180 (150-450) th/mm3 MPV 7.9 (7.0-11.0) fL Neut % (Auto) 88.0 H (16.0-70.0) % Lymph % (Auto) 9.4 (9.0-44.0) % Hughes % (Auto) 2.3 (0.0-8.0) % Eos % (Auto) 0.0 (0.0-4.0) % Baso % (Auto) 0.3 (0.0-2.0) % Neut # (Auto) 7.5 (1.8-7.7) th/mm3 Lymph # (Auto) 0.8 L (1.0-4.8) th/mm3 Hughes # (Auto) 0.2 (0.0-0.9) th/mm3 Eos # (Auto) 0.0 (0.0-0.4) th/mm3 Baso # (Auto) 0.0 (0.0-0.2) th/mm3 WBC Differential . Differential Comment Auto diff final PT (9.8-11.6) sec INR Ratio APTT (23.4-31.7) sec Sodium 138 (136-145) meq/L Potassium 2.9 L* (3.5-5.1) meq/L Chloride 104 (98-107) meq/L Carbon Dioxide 23.2 (21.0-32.0) meq/L Anion Gap 11 (5-15) meq/L BUN 5 L (7-18) mg/dL Creatinine 0.46 L (0.50-1.00) mg/dL Estimated GFR Greater than 89 (>89) mL/min Random Glucose 91 (74-106) mg/dL Lactic Acid (0.4-2.0) mmol/L Calcium 6.4 L* (8.5-10.1) mg/dL Calcium Adj for Albumin 7.7 L (8.5-10.1) mg/dL Total Bilirubin 1.4 H (0.2-1.0) mg/dL Direct Bilirubin 0.2 (0.0-0.2) mg/dL Indirect Bilirubin 1.2 H (0.0-0.8) mg/dL AST 452 H (15-37) U/L ALT 94 H (10-53) U/L Alkaline Phosphatase 118 H (45-117) U/L Ammonia (11-32) mcmol/L Total Creatine Kinase 1353 H Cancelled (26-192) U/L CK-MB (CK-2) 14.7 H (0.5-3.6) ng/mL CK-MB (CK-2) % 1.1 (0.0-4.0) % Troponin I Less than 0.02 L Cancelled (0.02-0.05) ng/mL Total Protein 5.5 L (6.4-8.2) g/dL Albumin 2.4 L (3.4-5.0) g/dL Urine Color (Yellw/Straw) Urine Clarity (Clear) Urine pH (5.0-8.5) Ur Specific [place] (1.002-1.035) Urine Protein (Neg-Trace) mg/dL Urine Glucose (UA) (Negative) mg/dL Urine Ketones (Negative) mg/dL Urine Occult Blood (Negative) Urine Nitrate (Negative) Urine Bilirubin (Negative) Urine Urobilinogen (Less than 2) mg/dL Ur Leukocyte Esterase (Negative) Urine RBC (0-3) /hpf Urine WBC (0-5) /hpf Ur Squamous Epith Cells (0-5) /hpf Hyaline Casts (0-3) /lpf Urine Mucus (Occasional) /lpf Micro UA Comment Ur Microscopic Review Urine Culture Comments Urine Opiates Screen (Neg) Ur Barbiturates Screen (Neg) Ur Amphetamines Screen (Neg) U Benzodiazepines Scrn (Neg) Urine Cocaine Screen (Neg) U Cannabinoids Screen (Neg) Serum Alcohol Less than 3 (0-5) mg/dL 06/27/18 06/27/1819 Range/Units 12:10 12:10 12:10 WBC (4.0-11.0) th/mm3 RBC (4.00-5.30) mil/mm3 Hgb (11.6-15.3) gm/dL Hct (35.0-46.0) % MCV (80.0-100.0) fL MCH (27.0-34.0) pg MCHC (32.0-36.0) % RDW (11.6-17.2) % Plt Count (150-450) th/mm3 MPV (7.0-11.0) fL Neut % (Auto) (16.0-70.0) % Lymph % (Auto) (9.0-44.0) % Hughes % (Auto) (0.0-8.0) % Eos % (Auto) (0.0-4.0) % Baso % (Auto) (0.0-2.0) % Neut # (Auto) (1.8-7.7) th/mm3 Lymph # (Auto) (1.0-4.8) th/mm3 Hughes # (Auto) (0.0-0.9) th/mm3 Eos # (Auto) (0.0-0.4) th/mm3 Baso # (Auto) (0.0-0.2) th/mm3 WBC Differential Differential Comment PT (9.8-11.6) sec INR Ratio APTT (23.4-31.7) sec Sodium (136-145) meq/L Potassium (3.5-5.1) meq/L Chloride (98-107) meq/L Carbon Dioxide (21.0-32.0) meq/L Anion Gap (5-15) meq/L BUN (7-18) mg/dL Creatinine (0.50-1.00) mg/dL Estimated GFR (>89) mL/min Random Glucose (74-106) mg/dL Lactic Acid 4.1 H* (0.4-2.0) mmol/L Calcium (8.5-10.1) mg/dL Calcium Adj for Albumin (8.5-10.1) mg/dL Total Bilirubin Cancelled (0.2-1.0) mg/dL Direct Bilirubin Cancelled (0.0-0.2) mg/dL Indirect Bilirubin Cancelled (0.0-0.8) mg/dL AST Cancelled (15-37) U/L ALT Cancelled (10-53) U/L Alkaline Phosphatase Cancelled (45-117) U/L Ammonia 29 (11-32) mcmol/L Total Creatine Kinase (26-192) U/L CK-MB (CK-2) (0.5-3.6) ng/mL CK-MB (CK-2) % (0.0-4.0) % Troponin I (0.02-0.05) ng/mL Total Protein Cancelled (6.4-8.2) g/dL Albumin Cancelled (3.4-5.0) g/dL Urine Color (Yellw/Straw) Urine Clarity (Clear) Urine pH (5.0-8.5) Ur Specific [place] (1.002-1.035) Urine Protein (Neg-Trace) mg/dL Urine Glucose (UA) (Negative) mg/dL Urine Ketones (Negative) mg/dL Urine Occult Blood (Negative) Urine Nitrate (Negative) Urine Bilirubin (Negative) Urine Urobilinogen (Less than 2) mg/dL Ur Leukocyte Esterase (Negative) Urine RBC (0-3) /hpf Urine WBC (0-5) /hpf Ur Squamous Epith Cells (0-5) /hpf Hyaline Casts (0-3) /lpf Urine Mucus (Occasional) /lpf Micro UA Comment Ur Microscopic Review Urine Culture Comments Urine Opiates Screen (Neg) Ur Barbiturates Screen (Neg) Ur Amphetamines Screen (Neg) U Benzodiazepines Scrn (Neg) Urine Cocaine Screen (Neg) U Cannabinoids Screen (Neg) Serum Alcohol (0-5) mg/dL 06/27/18 06/27/18 06/27/18 Range/Units 12:20 12:20 13:25 WBC (4.0-11.0) th/mm3 RBC (4.00-5.30) mil/mm3 Hgb (11.6-15.3) gm/dL Hct (35.0-46.0) % MCV (80.0-100.0) fL MCH (27.0-34.0) pg MCHC (32.0-36.0) % RDW (11.6-17.2) % Plt Count (150-450) th/mm3 MPV (7.0-11.0) fL Neut % (Auto) (16.0-70.0) % Lymph % (Auto) (9.0-44.0) % Hughes % (Auto) (0.0-8.0) % Eos % (Auto) (0.0-4.0) % Baso % (Auto) (0.0-2.0) % Neut # (Auto) (1.8-7.7) th/mm3 Lymph # (Auto) (1.0-4.8) th/mm3 Hughes # (Auto) (0.0-0.9) th/mm3 Eos # (Auto) (0.0-0.4) th/mm3 Baso # (Auto) (0.0-0.2) th/mm3 WBC Differential Differential Comment PT 16.5 H (9.8-11.6) sec INR 1.6 Ratio APTT 31.0 (23.4-31.7) sec Sodium (136-145) meq/L Potassium (3.5-5.1) meq/L Chloride (98-107) meq/L Carbon Dioxide (21.0-32.0) meq/L Anion Gap (5-15) meq/L BUN (7-18) mg/dL Creatinine (0.50-1.00) mg/dL Estimated GFR (>89) mL/min Random Glucose (74-106) mg/dL Lactic Acid (0.4-2.0) mmol/L Calcium (8.5-10.1) mg/dL Calcium Adj for Albumin (8.5-10.1) mg/dL Total Bilirubin (0.2-1.0) mg/dL Direct Bilirubin (0.0-0.2) mg/dL Indirect Bilirubin (0.0-0.8) mg/dL AST (15-37) U/L ALT (10-53) U/L Alkaline Phosphatase (45-117) U/L Ammonia (11-32) mcmol/L Total Creatine Kinase (26-192) U/L CK-MB (CK-2) (0.5-3.6) ng/mL CK-MB (CK-2) % (0.0-4.0) % Troponin I (0.02-0.05) ng/mL Total Protein (6.4-8.2) g/dL Albumin (3.4-5.0) g/dL Urine Color Yellow (Yellw/Straw) Urine Clarity Clear (Clear) Urine pH 6.0 (5.0-8.5) Ur Specific [place] 1.014 (1.002-1.035) Urine Protein Negative (Neg-Trace) mg/dL Urine Glucose (UA) Negative (Negative) mg/dL Urine Ketones Negative (Negative) mg/dL Urine Occult Blood Negative (Negative) Urine Nitrate Negative (Negative) Urine Bilirubin Negative (Negative) Urine Urobilinogen 0.2 (Less than 2) mg/dL Ur Leukocyte Esterase Negative (Negative) Urine RBC Less than 1 (0-3) /hpf Urine WBC 1 (0-5) /hpf Ur Squamous Epith Cells 2 (0-5) /hpf Hyaline Casts 3 (0-3) /lpf Urine Mucus Few H (Occasional) /lpf Micro UA Comment Culture not ind Ur Microscopic Review Not Reportable Urine Culture Comments Culture not ind Urine Opiates Screen Neg (Neg) Ur Barbiturates Screen Neg (Neg) Ur Amphetamines Screen Neg (Neg) U Benzodiazepines Scrn Neg (Neg) Urine Cocaine Screen Neg (Neg) U Cannabinoids Screen Neg (Neg) Serum Alcohol (0-5) mg/dL Imaging Data Attestation: I personally reviewed and interpreted this imaging study as follows : Radiologist's impression: Cervical Spine CT 06/27/18 12:00 CONCLUSION: 1. No acute fracture or subluxation of the cervical spine. 2. Degenerative changes as described. Face CT 06/27/18 12:00 CONCLUSION: 1. No acute facial fracture demonstrated. 2. Old fracturing of the nose. 3. Acute left periorbital preseptal soft tissue hematoma. Grossly intact globe. Post septal soft tissues within normal limits. Head CT 06/27/18 12:00 CONCLUSION: 1. No bleed or other acute intracranial abnormality demonstrated. 2. Left frontal scalp hematoma. No skull fracture. . . Chest X-Ray 06/27/18 12:01 CONCLUSION: No evidence of acute cardiopulmonary disease. Pelvis X-Ray 06/27/18 12:01 CONCLUSION: Intact pelvis. Abdomen/Pelvis CT 06/27/18 12:30 CONCLUSION: 1. No visceral organ injury, acute fracture or other acute abnormality demonstrated. 2. Chronic L5 pars defects. Grade 2 L5/S1 spondylolisthesis. 3. Aortoiliac atherosclerosis. No aneurysm. Chest CT 06/27/18 12:30 CONCLUSION: 1. No acute chest abnormality demonstrated. 2. There are old left rib fractures. 3. Coronary artery calcification. 4. Large hiatal hernia/intrathoracic stomach. 5. Clear lungs. ECG Data Attestation: I personally reviewed and interpreted this ECG as follows: Interpretation: EKG shows sinus rhythm with no sign of acute ischemia and arrhythmia. Ventricular rate of 76 bpm, NJ interval 174 ms. Read by me and attending. Discharge Plan Discharge Disposition Patient Disposition: ED Admit(ED Internal Use Only) Discharge Order Discharge Orders: ED Use Only Admit Order (Routine); Ordered 06/27/18 Ordered By: Marito Ordonez Discharge Details Diagnosis: Acute alteration in mental status, Seizure, Alcohol withdrawal Physicians Team ED Provider: Armani Brownlee ED Midlevel Provider: Marito Ordonez Primary Care Provider: UNKNOWN, Attending Provider: Erika Qureshi Discharge Interventions Interventions: Vital Signs Last Done: 06/27/18 15:19 Status ED Status: Admitted Patient
[2018-06-27 12:59] LABS: Bilirubin,Urine Negative (Negative); Clarity,Urine Clear (Clear); Color,Urine Yellow (Yellw/Straw); Glucose,Urine (UA) Negative (Negative); Hyaline Casts,Urine 3 /lpf (0-3); Leukocyte Esterase,Urine Negative (Negative); Mucus,Urine Few /lpf (Occasional); Nitrite,Urine Negative (Negative); Specific Gravity,Urine 1.014 (1.002-1.035); Squamous Epithelial Cell,Urine 2 /hpf (0-5)
[2018-06-27 13:08] LABS: Amphetamine Screen,Urine Neg (Neg); Barbiturate Screen,Urine Neg (Neg); Cannabinoid Screen,Urine Neg (Neg); Cocaine Screen,Urine Neg (Neg)
[2018-06-27 13:10] LABS: Opiate Screen,Urine Neg (Neg)
[2018-06-27 13:11] LABS: Urobilinogen,Urine 0.2 mg/dL (Less than 2)
[2018-06-27 13:11] LABS: Alanine Aminotransferase 94 U/L (10-53); Albumin 2.4 g/dL (3.4-5.0); Alkaline Phosphatase 118 U/L (45-117); Anion Gap 11 meq/L (5-15); Aspartate Aminotransferase 452 U/L (15-37); Blood Urea Nitrogen 5 mg/dL (7-18); Calcium 6.4 mg/dL (8.5-10.1); Carbon Dioxide 23.2 meq/L (21.0-32.0); Chloride 104 meq/L (98-107); Creatine Kinase 1353 U/L (26-192); Glomerular Filtration Rate Greater Than 89 mL/min (>89); Glucose,Random 91 mg/dL (74-106); Sodium 138 meq/L (136-145); Total Protein 5.5 g/dL (6.4-8.2)
[2018-06-27 13:26] LABS: CKMB Percent 1.1 % (0.0-4.0); Creatine Kinase MB 14.7 ng/mL (0.5-3.6)
[2018-06-27 13:28] LABS: Calcium-Albumin Corrected 7.7 mg/dL (8.5-10.1)
[2018-06-27 13:30] LABS: Potassium 2.9 meq/L (3.5-5.1)
[2018-06-27] MEDS: Sod Chloride 0.9% Inj 1,000 ML IV.SIG SCH ×2 (13:36→15:15)
--- NOTE | 2018-06-27 13:40 | XR ---
EXAM DATE: 06/27/2018 1:11 PM EST AGE/SEX: 62 years / Female INDICATIONS: Pain after fall. CLINICAL DATA: This is the patient's initial encounter. Patient reports that signs and symptoms have been present for 1 day and indicates a pain score of 10/10. MEDICAL/SURGICAL HISTORY: . Hypercholesterolemia. Gastroesophageal reflux disease. Chronic obst ructive pulmonary disease. Syncope. Hiatal hernia. Bipolar disorder. Hyperlipidemia. Alcohol abuse. H ypothyroidism. Sleep apnea. . Appendectomy. Total knee replacement, left. Right arm surgery. Hernia repair. COMPARISON: [facility] [place] [place] [facility] [place], 10/29/2017. . FINDINGS: Examination of the pelvis demonstrates no evidence of fracture or dislocation. Bony mineralization i s normal. There is no widening of the sacroiliac joints. No foreign body is identified. CONCLUSION: Intact pelvis. Electronically signed by: Constantino López MD Board Certified Radiologist 06/27/2018 1:39 PM EST
--- NOTE | 2018-06-27 13:41 | XR ---
EXAM DATE: 06/27/2018 1:10 PM EST AGE/SEX: 62 years / Female INDICATIONS: Pain after fall. CLINICAL DATA: This is the patient's initial encounter. Patient reports that signs and symptoms have been present for 1 day and indicates a pain score of 10/10. MEDICAL/SURGICAL HISTORY: . Hypercholesterolemia. Gastroesophageal reflux disease. Chronic obst ructive pulmonary disease. Syncope. Hiatal hernia. Bipolar disorder. Hyperlipidemia. Alcohol abuse. H ypothyroidism. Sleep apnea. . Appendectomy. Total knee replacement, left. Right arm surgery. Hernia repair. COMPARISON: [facility] – [place], CHEST SINGLE AP, 10/23/2017. . FINDINGS: A single AP view of the chest demonstrates the lungs to be symmetrically aerated without evidence of mass, infiltrate or effusion. The cardiomediastinal contours are unremarkable. Osseous structures a re intact. CONCLUSION: No evidence of acute cardiopulmonary disease. Electronically signed by: Constantino López MD Board Certified Radiologist 06/27/2018 1:40 PM EST
[2018-06-27] MEDS ORDERED: Lidocaine PF 1% Inj 30 ML Vial ONE (13:49)
[2018-06-27 14:07] LABS: INR 1.6 Ratio; Prothrombin Time 16.5 sec (9.8-11.6)
--- NOTE | 2018-06-27 14:58 | CT ---
EXAM DATE: 06/27/2018 2:52 PM EST AGE/SEX: 62 years / Female INDICATIONS: Altered mental status. Found on floor with left eye swelling. CLINICAL DATA: This is the patient's initial encounter. Patient reports that signs and symptoms have been present for 1 day and indicates a pain score of Nonresponsive. MEDICAL/SURGICAL HISTORY: Diabetes. Non-responsive. RADIATION DOSE: 66.34 CTDI (mGy) COMPARISON: [facility] – [place], CT BRAIN W/O CONTRAST, 10/17/2017. . TECHNIQUE: CT of the head without contrast. Using automated exposure control and adjustment of the mA and/or kV according to patient size, radiation dose was kept as low as reasonably achievable to ob tain optimal diagnostic quality images. DICOM format image data is available electronically for revi ew and comparison. FINDINGS: Study is motion degraded. No intracranial hemorrhage or hematoma demonstrated. No mass, mass effect o r midline shift seen. No evidence of an acute ischemic event. There is a left supraorbital soft tissue hematoma. Skull is intact. CONCLUSION: 1. No bleed or other acute intracranial abnormality demonstrated. 2. Left frontal scalp hematoma. No skull fracture. . . Electronically signed by: Constantino López MD Board Certified Radiologist 06/27/2018 2:57 PM EST
--- NOTE | 2018-06-27 15:01 | CT ---
EXAM DATE: 06/27/2018 2:55 PM EST AGE/SEX: 62 years / Female INDICATIONS: Trauma, possible fall. Found on floor with left eye swelling. CLINICAL DATA: This is the patient's initial encounter. Patient reports that signs and symptoms have been present for 1 day and indicates a pain score of Nonresponsive. MEDICAL/SURGICAL HISTORY: Diabetes. Non-responsive. RADIATION DOSE: 21.36 CTDI (mGy) COMPARISON: No prior exams available for comparison. TECHNIQUE: Contiguous axial images were obtained using helical multirow detector technique. The vol umetric data was post-processed with multiplanar reconstruction in oblique axial, sagittal, and coron al planes. Using automated exposure control and adjustment of the mA and/or kV according to patient s ize, radiation dose was kept as low as reasonably achievable to obtain optimal diagnostic quality neva ges. DICOM format image data is available electronically for review and comparison. FINDINGS: Cervical spine alignment is within normal limits. Chronic appearing mild loss of height and endplate irregularity seen of C6. No acute cortical break or trabecular disruption demonstrated. No periverteb ral soft tissue swelling. Moderate to severe disc space narrowing with mild bilateral uncovertebral and facet osteoarthritis se en at C5/C6 and C6/C7. There is mild disc space narrowing but more advanced right-sided uncovertebral and facet osteoarthritis and right foraminal encroachment at C3/C4 and C4/C5. CONCLUSION: 1. No acute fracture or subluxation of the cervical spine. 2. Degenerative changes as described. Electronically signed by: Constantino López MD Board Certified Radiologist 06/27/2018 3:00 PM EST
[2018-06-27] MEDS ORDERED: Haloperidol Inj 5 MG/ML Ampul IV.PUSH PRN ×2 (15:05→15:59)
[2018-06-27] MEDS ORDERED: LORazepam 1 MG Tablet PO PRN ×2 (15:05→15:59)
--- NOTE | 2018-06-27 15:05 | CT ---
EXAM DATE: 06/27/2018 2:58 PM EST AGE/SEX: 62 years / Female INDICATIONS: Trauma, possible fall. Found on floor with left eye swelling. CLINICAL DATA: This is the patient's initial encounter. Patient reports that signs and symptoms have been present for 1 day and indicates a pain score of Nonresponsive. MEDICAL/SURGICAL HISTORY: Diabetes. Non-responsive. RADIATION DOSE: 21.96 CTDI (mGy) COMPARISON: No prior exams available for comparison. TECHNIQUE: Contiguous images in the axial and coronal planes were obtained using helical multirow de tector technique. Using automated exposure control and adjustment of the mA and/or kV according to p atient size, radiation dose was kept as low as reasonably achievable to obtain optimal diagnostic gary lity images. DICOM format image data is available electronically for review and comparison. FINDINGS: Comminuted, nonacute appearing fracturing seen of both sides of the nasal arch and with slight rightw landry deviation of the nose. No acute facial bone fracture is demonstrated. No blood seen in the nasal cavity or paranasal sinuses. There is a left preseptal soft tissue hematoma. The globe is grossly intact. The post septal soft tis sues are within normal limits. CONCLUSION: 1. No acute facial fracture demonstrated. 2. Old fracturing of the nose. 3. Acute left periorbital preseptal soft tissue hematoma. Grossly intact globe. Post septal soft tis sues within normal limits. Electronically signed by: Constantino López MD Board Certified Radiologist 06/27/2018 3:03 PM EST
--- NOTE | 2018-06-27 15:09 | CT ---
EXAM DATE: 06/27/2018 3:01 PM EST AGE/SEX: 62 years / Female INDICATIONS: Trauma, possible fall. Found on floor with left eye swelling. CLINICAL DATA: This is the patient's initial encounter. Patient reports that signs and symptoms have been present for 1 day and indicates a pain score of Nonresponsive. MEDICAL/SURGICAL HISTORY: Diabetes. Non-responsive. RADIATION DOSE: 7.1 CTDI (mGy) ; Combined studies COMPARISON: [facility] – [place], CT PULMONARY ANGIOGRAM, 10/20/2017. . TECHNIQUE: Multiple contiguous axial images were obtained through the chest during bolus infusion of 96 ml Omnipaque 350 (iohexol) nonionic water-soluble contrast as a cumulative dose for multiple exa ms. Images were obtained in suspended respiration using multiple row detector helical technique. U sing automated exposure control and adjustment of the mA and/or kV according to patient size, radiati on dose was kept as low as reasonably achievable to obtain optimal diagnostic quality images. DICOM format image data is available electronically for review and comparison. FINDINGS: There are nonacute fractures posterolaterally of the left sixth, seventh and eighth ribs. I don't see an acute fracture of the visualized osseous structures. No infiltrate, effusion or pneumothorax. There is no lymphadenopathy. Normal heart size. No mediastinal hematoma. There is coronary artery calcification. Large hiatal leonardo ia/intrathoracic stomach. CONCLUSION: 1. No acute chest abnormality demonstrated. 2. There are old left rib fractures. 3. Coronary artery calcification. 4. Large hiatal hernia/intrathoracic stomach. 5. Clear lungs. Electronically signed by: Constantino López MD Board Certified Radiologist 06/27/2018 3:07 PM EST
--- NOTE | 2018-06-27 15:16 | CT ---
EXAM DATE: 06/27/2018 3:01 PM EST AGE/SEX: 62 years / Female INDICATIONS: Trauma, possible fall. Found on floor with left eye swelling. CLINICAL DATA: This is the patient's initial encounter. Patient reports that signs and symptoms have been present for 1 day and indicates a pain score of Nonresponsive. MEDICAL/SURGICAL HISTORY: Diabetes. Non-responsive. ORAL CONTRAST: No oral contrast ingested. RADIATION DOSE: 7.1 CTDI (mGy) ; Combined studies COMPARISON: No prior exams available for comparison. TECHNIQUE: Multiple contiguous axial images were obtained through the abdomen and pelvis following b olus infusion of 96 ml Omnipaque 350 (iohexol) nonionic water-soluble contrast as a cumulative dose for multiple exams. No oral contrast ingested. Using automated exposure control and adjustment of t he mA and/or kV according to patient size, radiation dose was kept as low as reasonably achievable to obtain optimal diagnostic quality images. DICOM format image data is available electronically for r eview and comparison. FINDINGS: The liver is fatty infiltrated but otherwise normal. No evidence of laceration of the liver, spleen, pancreas, adrenal glands or kidneys. The gastrointestinal tract is within normal limits. Tortuous and atherosclerotic abdominal aorta. No aneurysm. No free fluid or free air. No lymphadenopathy. I don't see any acute fractures of the visualized osseous structures. There are chronic L5 pars defec ts. There is grade 2 L5/S1 spondylolisthesis. CONCLUSION: 1. No visceral organ injury, acute fracture or other acute abnormality demonstrated. 2. Chronic L5 pars defects. Grade 2 L5/S1 spondylolisthesis. 3. Aortoiliac atherosclerosis. No aneurysm. Electronically signed by: Constantino López MD Board Certified Radiologist 06/27/2018 3:15 PM EST
[2018-06-27] MEDS ORDERED: Bisacodyl 10 MG Supp RECTAL PRN (15:59)
--- NOTE | 2018-06-27 16:07 | P.HPIM ---
History of Present Illness Service: Hospitalist Primary Care Physician: UNKNOWN History of Present Illness: Ms. Osorio is a 62-year-old female who was brought to the hospital due to altered mental status and traumatic injury to the left eye. Per EMS report, patient denied falling or having any head pain. However, she has been drinking and intoxicated. EMS found her with a black eye. Upon arrival, serum alcohol level was 3. Urine drug screen was negative. At the time of [facility] interview in the ICU room, patient is alert but speech is gargled and very difficult to understand. Unfortunately, it is also difficult to obtain proper history. She does admit to drinking alcohol and smoking but unable to quantify. Patient denies any chest pain, shortness of breath. Past medical history: Unable to obtain. Alcoholism is likely present. Past surgical history: Unable to obtain Social history: Smokes and drinks alcohol. Family history: Unable to obtain. Inpatient Certification Inpatient Certification: I certify that the inpatient services were ordered in accordance with Medicare regulations governing the order. This includes certification that hospital inpatient services are reasonable and necessary and in the case of services not specified as inpatient-only under 42 CFR 419.22(n), that they are appropriately provided as inpatient services in accordance to with the 2-midnight benchmark under 43 CFR 412.3(e) Estimated Total Length of Stay (Days): 3 Plans for Post Hospital Care: Home Review of Systems Review of Systems: all other systems reviewed are negative [facility] Medical History Medical History Diabetes (Acute) Surgical history unknown (Acute) Social History Social History Smoking Status: Cognitive impairment How Often Do You Have a Drink Containing Alcohol: Unable to Obtain Recent Travel in [facility] within the Last 8 Weeks: No Recent Out of Country Travel within the Last 8 Weeks: No Immunization History Tetanus Immunization: Unable to Assess Medications and Allergies Allergies Allergy/AdvReac Type Severity Reaction Status Date / Time hydroxyzine Allergy Severe HALLUCINATI Verified 06/27/18 11:57 ONS nortriptyline Allergy Severe UNKNOWN Verified 06/27/18 11:57 buspirone Allergy Intermediate UNKNOWN Verified 06/27/18 11:57 Home Medications Medication Instructions Recorded Confirmed Type Unable to Obtain Home Meds 06/27/18 06/27/18 History Active Medications: Active Medications Acetaminophen (Tylenol) 650 mg PO Q4H PRN PRN Reason: Headache, fever, pain 1-4 Bisacodyl (Dulcolax Supp) 10 mg RECTAL DAILY PRN PRN Reason: SEVERE CONSITIPATION Chlordiazepoxide (Librium) 10 mg PO Q8H ESVIN Flumazenil (Romazicon Inj) 0.2 mg IV.PUSH Q1M PRN PRN Reason: OVERSEDATION Flumazenil (Romazicon Inj) 0.2 mg IV.PUSH Q1M PRN PRN Reason: OVERSEDATION Folic Acid (Folic Acid) 1 mg PO DAILY ESVIN Haloperidol Lactate (Haldol Inj) 1 mg IV.PUSH Q15M PRN PRN Reason: for severe agitation Lorazepam (Ativan) 1 mg PO Q4H PRN PRN Reason: for CIWA 8-10 Lorazepam (Ativan) 2 mg PO Q2H PRN PRN Reason: for CIWA 11-14 Lorazepam (Ativan Inj) 2 mg IV.PUSH Q1H PRN PRN Reason: for CIWA 15-20 Lorazepam (Ativan Inj) 2 mg IV.PUSH Q15M PRN PRN Reason: for CIWA > 20 Lorazepam (Ativan Inj) 1 mg IV.PUSH Q4H PRN PRN Reason: for CIWA 8-10 Last Admin: 06/27/18 15:29 Dose: 1 mg Lorazepam (Ativan Inj) 2 mg IV.PUSH Q2H PRN PRN Reason: for CIWA 11-14 Physical Exam Vital signs: Vital Signs 06/27/18 12:34 06/27/18 13:12 06/27/18 15:19 Pulse Rate 94 H 108 H 92 H Respiratory Rate 22 24 Blood Pressure 136/86 122/91 H Pulse Oximetry 98 91 L Intake & Output 06/26/18 06/27/18 06/27/18 18:59 06:59 18:59 Intake Total 1000 / 1000 Balance 1000 / 1000 Weight 74.843 kg Intake: IV 1000 / 1000 NS Inj 1,000 ML @ 2000 mls/hr 1000 / 1000 IV.SIG Q30M ESVIN Rx#:[id number] Narrative: GENERAL: Disheveled appearance, Speech unclear. SKIN: No rashes, ecchymoses or lesions. Warm and dry. HEAD: Atraumatic. Normocephalic. No temporal or scalp tenderness. EYES: Pupils equal round and reactive. Left eye periorbital ecchymosis noted. ENT: Nose without bleeding, purulent drainage or septal hematoma. Airway patent. NECK: Trachea midline. No lymphadenopathy. Supple, nontender, no meningeal signs. CARDIOVASCULAR: Regular rate and rhythm without murmurs, gallops, or rubs. No JVD. RESPIRATORY: Clear to auscultation. Breath sounds equal bilaterally. No wheezes , rales, or rhonchi. GASTROINTESTINAL: Abdomen soft, non-tender, nondistended. No guarding. MUSCULOSKELETAL: Extremities without clubbing, cyanosis, or edema. NEUROLOGICAL: Awake and alert. Speech is gargled and difficult to understand. Results Labs CBC & Chem 7: 06/27/18 12:10 06/27/18 12:10 Imaging Impressions Cervical Spine CT 06/27/18 12:00 CONCLUSION: 1. No acute fracture or subluxation of the cervical spine. 2. Degenerative changes as described. Face CT 06/27/18 12:00 CONCLUSION: 1. No acute facial fracture demonstrated. 2. Old fracturing of the nose. 3. Acute left periorbital preseptal soft tissue hematoma. Grossly intact globe. Post septal soft tissues within normal limits. Head CT 06/27/18 12:00 CONCLUSION: 1. No bleed or other acute intracranial abnormality demonstrated. 2. Left frontal scalp hematoma. No skull fracture. . . Chest X-Ray 06/27/18 12:01 CONCLUSION: No evidence of acute cardiopulmonary disease. Pelvis X-Ray 06/27/18 12:01 CONCLUSION: Intact pelvis. Abdomen/Pelvis CT 06/27/18 12:30 CONCLUSION: 1. No visceral organ injury, acute fracture or other acute abnormality demonstrated. 2. Chronic L5 pars defects. Grade 2 L5/S1 spondylolisthesis. 3. Aortoiliac atherosclerosis. No aneurysm. Chest CT 06/27/18 12:30 CONCLUSION: 1. No acute chest abnormality demonstrated. 2. There are old left rib fractures. 3. Coronary artery calcification. 4. Large hiatal hernia/intrathoracic stomach. 5. Clear lungs. Caprini VTE Risk Assessment Caprini VTE Risk Assessment: No/Low Risk (score <= 1) Caprini Risk Assessment Model: Point Value = 1 Point Value = 2 Point Value = 3 Point Value = 5 Age 41-60 Minor surgery BMI > 25 kg/m2 Swollen legs Varicose veins or History of unexplained or recurrent spontaneous Oral contraceptives or hormone replacement Sepsis (< 1 month) Serious lung disease, including pneumonia (< 1 month) Abnormal pulmonary function Acute myocardial infarction Congestive heart failure (< 1 month) History of inflammatory bowel disease Medical patient at bed rest Age 61-74 Arthroscopic surgery Major open surgery (> 45 min) Laparoscopic surgery (> 45 min) Malignancy Confined to bed (> 72 hours) Immobilizing plaster cast Central venous access Age >= 75 History of VTE Family history of VTE Factor V Leiden Prothrombin [id number] Lupus anticoagulant Anticardiolipin antibodies Elevated serum homocysteine Heparin-induced thrombocytopenia Other congenital or acquired thrombophilia Stroke (< 1 month) Elective arthroplasty Hip, pelvis, or leg fracture Acute spinal cord injury (< 1 month) Prophylaxis Regimen: Total Risk Factor Score Risk Level Prophylaxis Regimen 0-1 Low Early ambulation 2 Moderate Order ONE of the following: *Sequential Compression Device (SCD) *Heparin 5000 units SQ BID 3-4 Higher Order ONE of the following medications: *Heparin 5000 units SQ TID *Enoxaparin/Lovenox 40 mg SQ daily (WT < 150 kg, CrCl > 30 mL/min) *Enoxaparin/Lovenox 30 mg SQ daily (WT < 150 kg, CrCl > 10-29 mL/min) *Enoxaparin/Lovenox 30 mg SQ BID (WT < 150 kg, CrCl > 30 mL/min) AND/OR *Sequential Compression Device (SCD) 5 or more Highest Order ONE of the following medications: *Heparin 5000 units SQ TID (Preferred with Epidurals) *Enoxaparin/Lovenox 40 mg SQ daily (WT < 150 kg, CrCl > 30 mL/min) *Enoxaparin/Lovenox 30 mg SQ daily (WT < 150 kg, CrCl > 10-29 mL/min) *Enoxaparin/Lovenox 30 mg SQ BID (WT < 150 kg, CrCl > 30 mL/min) AND *Sequential Compression Device (SCD) Assessment and Plan Plan Ms. Osorio is a 62 year old female who was brought to the hospital after she was found down on the floor at her place by her friend. She has a history of alcoholic intoxication. Alcohol level was less than 3. Acute delirium Toxic encephalopathy Likely alcohol intoxication -likely due to alcoholism. Imaging studies show no fracture, stroke -[facility] protocol. Also start Librium -Thiamine IV 500mg Qday 3 days then if patient tolerates PO, start Thiamine 100mg PO Qday -Folic acid 1mg Qday -IV NS 100cc/hour. Hypokalemia -Mg is 2.1. Will provide 40meQ of IV KCL. Alcoholic liver disease -AST(452), ALT(94), bilirubin as well as INR (1.6) elevated. -Maddrey's discrimination function score around 24. No need for steroid at this point. Mild rhabdomyolysis -CPK around 1300. Will re-check in the AM. -Continue IV fluid. Lactic acidosis - 4.1 --> 3.6. Full code. Lovenox for DVT. INR 1.6 is due to liver disease.
[2018-06-27] MEDS: Sod Chloride 0.9% Inj 1,000 ML IV.CONT SCH (17:31)
[2018-06-27] MEDS: Folic Acid 1 MG Tablet PO SCH (17:32)
[2018-06-27] MEDS: Thiamine Inj 500 MG in Sodium Chlor 0.9% Inj 500 ML IV.SIG SCH (18:57)
[2018-06-27] MEDS: Potassium Chlor 20 mEq Premix 20 MEQ/100 ML PIGGYBACK IV.SIG SCH ×2 (20:42→22:53)
[2018-06-28] MEDS ORDERED: Chlorhexidine Gluconate 2% 1 Pack (2 Cloths) TOPICAL PRN (04:00)
[2018-06-28] MEDS: Sod Chloride 0.9% Inj 1,000 ML IV.CONT SCH ×3 (05:37→23:17)
[2018-06-28] MEDS: Chlorhexidine Gluconate 2% 1 Pack (2 Cloths) TOPICAL SCH (05:38)
[2018-06-28 07:36] LABS: Baso # (Auto) 0.1 th/mm3 (0.0-0.2); Baso % (Auto) 0.7 % (0.0-2.0); Eos # (Auto) 0.1 th/mm3 (0.0-0.4); Eos % (Auto) 0.9 % (0.0-4.0); Hematocrit 36.5 % (35.0-46.0); Lymph # (Auto) 1.3 th/mm3 (1.0-4.8); Lymph % (Auto) 15.7 % (9.0-44.0); Mean Corpuscular HGB Conc 35.6 % (32.0-36.0); Mean Corpuscular Hemoglobin 36.7 pg (27.0-34.0); Mean Corpuscular Volume 103.3 fL (80.0-100.0); Mean Platelet Volume 8.1 fL (7.0-11.0); Mono # (Auto) 0.2 th/mm3 (0.0-0.9); Neut # (Auto) 6.5 th/mm3 (1.8-7.7); Neut % (Auto) 79.7 % (16.0-70.0); Platelet Count 150 th/mm3 (150-450); Red Blood Count 3.53 mil/mm3 (4.00-5.30); Red Cell Distribution Width 14.9 % (11.6-17.2); White Blood Count 8.2 th/mm3 (4.0-11.0)
[2018-06-28 08:06] LABS: Anion Gap 9 meq/L (5-15); Blood Urea Nitrogen 4 mg/dL (7-18); Calcium 7.5 mg/dL (8.5-10.1); Carbon Dioxide 27.8 meq/L (21.0-32.0); Chloride 98 meq/L (98-107); Glomerular Filtration Rate Greater Than 89 mL/min (>89); Glucose,Random 69 mg/dL (74-106); Magnesium 1.9 mg/dL (1.5-2.5); Potassium 3.1 meq/L (3.5-5.1); Sodium 135 meq/L (136-145)
[2018-06-28 08:15] LABS: Creatine Kinase 2974 U/L (26-192)
[2018-06-28 08:53] LABS: CKMB Percent 1.2 % (0.0-4.0); Creatine Kinase MB 34.9 ng/mL (0.5-3.6)
[2018-06-28] MEDS: Thiamine Inj 500 MG in Sodium Chlor 0.9% Inj 500 ML IV.SIG SCH (12:31)
[2018-06-28] MEDS: Potassium Chlor 20 mEq Premix 20 MEQ/100 ML PIGGYBACK IV.SIG SCH ×4 (12:31→23:16)
[2018-06-28] MEDS: Folic Acid 1 MG Tablet PO SCH (12:32)
--- NOTE | 2018-06-28 13:09 | P.PNIM ---
Subjective Interval history: Follow-up for likely alcohol intoxication and withdrawal. Patient is actually somewhat more alert and coherent today. Her speech is more clear. No fever or chills. Physical Exam Vital signs: Vital Signs 06/27/18 13:12 06/27/18 15:19 06/27/18 15:59 Temperature Pulse Rate 108 H 92 H Respiratory Rate 22 24 Blood Pressure 136/86 122/91 H Pulse Oximetry 98 91 L 91 L 06/27/18 17:00 06/27/18 17:11 06/27/18 18:00 Temperature 98.6 F Pulse Rate 83 78 Respiratory Rate 26 H 26 H Blood Pressure 128/83 127/84 Pulse Oximetry 98 97 92 L 06/27/18 18:30 06/27/18 19:00 06/27/18 19:38 Temperature Pulse Rate 75 96 H 82 Respiratory Rate 25 H 30 H 14 Blood Pressure 129/88 Pulse Oximetry 85 L 93 L 06/27/18 20:00 06/27/18 21:00 06/27/18 21:56 Temperature 98.2 F Pulse Rate 83 81 Respiratory Rate 36 H 26 H Blood Pressure 130/82 125/87 Pulse Oximetry 92 L 91 L 92 L 06/27/18 22:00 06/27/18 22:22 06/27/18 23:00 Temperature Pulse Rate 85 86 86 Respiratory Rate 33 H 30 H 28 H Blood Pressure 137/87 Pulse Oximetry 92 L 76 L 06/27/18 23:09 06/28/18 00:00 06/28/18 01:00 Temperature 98.1 F Pulse Rate 89 91 H 88 Respiratory Rate 31 H 23 44 H Blood Pressure 131/82 132/87 Pulse Oximetry 86 L 06/28/18 01:06 06/28/18 02:00 06/28/18 02:01 Temperature Pulse Rate 82 93 H 92 H Respiratory Rate 32 H 37 H 26 H Blood Pressure 142/95 H 150/98 H Pulse Oximetry 88 L 92 L 93 L 06/28/18 03:00 06/28/18 04:00 06/28/18 04:01 Temperature 98.2 F Pulse Rate 84 81 84 Respiratory Rate 34 H 28 H 27 H Blood Pressure 153/79 H 160/76 H Pulse Oximetry 81 L 06/28/18 05:00 06/28/18 06:00 06/28/18 07:00 Temperature Pulse Rate 83 107 H 81 Respiratory Rate 26 H 33 H 28 H Blood Pressure 168/90 H 166/75 H 123/80 Pulse Oximetry 06/28/18 08:00 06/28/18 10:00 Temperature Pulse Rate 80 85 Respiratory Rate 23 Blood Pressure Pulse Oximetry Intake & Output 06/27/18 06/28/18 06/28/18 18:59 06:59 18:59 Intake Total 1999 1805 / 1805 Output Total 300 / 300 Balance 1999 1505 / 1505 Weight 79 kg 80 kg Intake: IV 1999 1705 / 1705 NS Inj 1,000 ML @ 100 mls/hr IV 1000 / 1000 .CONT .Q10H ESVIN Rx#:[id number] KCl 20 mEq Premix Inj 20 meq In 200 / 200 100 ml @ 50 mls/hr IV.SIG Q2H ESVIN Rx#:[id number] NS Inj 1,000 ML @ 2000 mls/hr 1999 IV.SIG Q30M ESVIN Rx#:[id number] Thiamine Inj 500 MG In NS Inj 505 / 505 500 ML @ 125 mls/hr IV.SIG DAILY ESVIN Rx#:[id number] Oral 100 / 100 Output: Urine 300 / 300 Other: # Incontinent Voids 4 # Urine Diapers 1 # Incontinent Bowel Movements 0 Weight On Admission 79 kg Narrative: GENERAL: Alert, NAD. SKIN: Warm and dry. HEAD: Normocephalic. EYES: No scleral icterus. Left sided orbital ecchymosis noted. NECK: Supple, trachea midline. No JVD or lymphadenopathy. CARDIOVASCULAR: Regular rate and rhythm without murmurs, gallops, or rubs. RESPIRATORY: Breath sounds equal bilaterally. No accessory muscle use. GASTROINTESTINAL: Abdomen soft, non-tender, nondistended. MUSCULOSKELETAL: No cyanosis, or edema. BACK: Nontender without obvious deformity. No CVA tenderness. Results Labs CBC & Chem 7: 06/28/18 07:03 06/28/18 07:03 Labs: Microbiology 06/27/18 13:45 Blood - Peripheral Aerobic Blood Culture - Preliminary gram positive cocci 06/27/18 13:45 Blood - Peripheral Anaerobic Blood Culture - Preliminary No growth in 1 day 06/27/18 13:40 Blood - Peripheral Aerobic Blood Culture - Preliminary No growth in 1 day 06/27/18 13:40 Blood - Peripheral Anaerobic Blood Culture - Preliminary No growth in 1 day Imaging Imaging: Impressions Cervical Spine CT 06/27/18 12:00 CONCLUSION: 1. No acute fracture or subluxation of the cervical spine. 2. Degenerative changes as described. Face CT 06/27/18 12:00 CONCLUSION: 1. No acute facial fracture demonstrated. 2. Old fracturing of the nose. 3. Acute left periorbital preseptal soft tissue hematoma. Grossly intact globe. Post septal soft tissues within normal limits. Head CT 06/27/18 12:00 CONCLUSION: 1. No bleed or other acute intracranial abnormality demonstrated. 2. Left frontal scalp hematoma. No skull fracture. . . Chest X-Ray 06/27/18 12:01 CONCLUSION: No evidence of acute cardiopulmonary disease. Pelvis X-Ray 06/27/18 12:01 CONCLUSION: Intact pelvis. Abdomen/Pelvis CT 06/27/18 12:30 CONCLUSION: 1. No visceral organ injury, acute fracture or other acute abnormality demonstrated. 2. Chronic L5 pars defects. Grade 2 L5/S1 spondylolisthesis. 3. Aortoiliac atherosclerosis. No aneurysm. Chest CT 06/27/18 12:30 CONCLUSION: 1. No acute chest abnormality demonstrated. 2. There are old left rib fractures. 3. Coronary artery calcification. 4. Large hiatal hernia/intrathoracic stomach. 5. Clear lungs. Assessment and Plan Plan Ms. Osorio is a 62 year old female who was brought to the hospital after she was found down on the floor at her place by her friend. She has a history of alcoholic intoxication. Alcohol level was less than 3. Acute delirium Toxic encephalopathy Likely alcohol intoxication -likely due to alcoholism. Imaging studies show no fracture, stroke -[facility] protocol. continue Librium. -Thiamine IV 500mg Qday 3 days then if patient tolerates PO, start Thiamine 100mg PO Qday -Folic acid 1mg Qday -IV NS 100cc/hour. Gram-positive cocci bacteremia 1 out of 4 bottles positive. Very likely contamination. No leukocytosis, fever. We will continue to follow. If significant, will start IV antibiotics as well as possibly consult infectious disease. Hypokalemia -K+ improved to 3.1. Will provide more IV KCL. Alcoholic liver disease -AST(452), ALT(94), bilirubin as well as INR (1.6) elevated. -Maddrey's discrimination function score around 24. No need for steroid at this point. Mild rhabdomyolysis -CPK around 1300 --> 3000. -Continue IV fluid. Lactic acidosis - 4.1 --> 3.6. Full code. Lovenox for DVT. INR 1.6 is due to liver disease. Progress Note: Quality VTE Deep Vein Thrombosis/Pulmonary Embolism Present on Admission: No
[2018-06-28] MEDS: Enoxaparin Inj 40 MG/0.4 ML Syringe SQ SCH (15:19)
--- NOTE | 2018-06-28 17:00 | ECG ---
Date Performed: 06/27/2018 Time Performed: 13:08:33 PTAGE: 62 years EKG: Sinus rhythm LOW QRS VOLTAGE BASELINE ARTIFACT MAKES IT SUBSTANDARD FOR INTERPRETATION ABNORMAL ECG PREVIOUS TRACING : 10/17/2017 21.35 DOCTOR: Regino Naik Interpretating Date/Time 06/28/2018 16:58:17
[2018-06-29] MEDS: Sod Chloride 0.9% Inj 1,000 ML IV.CONT SCH ×3 (02:40→14:50)
[2018-06-29] MEDS: Chlorhexidine Gluconate 2% 1 Pack (2 Cloths) TOPICAL SCH (08:02)
[2018-06-29] MEDS: Folic Acid 1 MG Tablet PO SCH (08:34)
[2018-06-29] MEDS: Thiamine Inj 500 MG in Sodium Chlor 0.9% Inj 500 ML IV.SIG SCH (08:35)
[2018-06-29] MEDS: Enoxaparin Inj 40 MG/0.4 ML Syringe SQ SCH (08:35)
[2018-06-29] MEDS: KCL 20 mEq/D5W/NaCl 0.9% Inj 1,000 ML IV.CONT SCH (18:25)
--- NOTE | 2018-06-29 22:33 | P.PNIM ---
Subjective Interval history: Follow-up for likely alcohol intoxication and withdrawal. Patient was seen in the early afternoon. Son and a friend was present at bedside. Patient is much more coherent now. She does not want to go to a [facility] facility. She might consider local SNF. No fever, chills. Physical Exam Vital signs: Vital Signs 06/28/18 23:00 06/29/18 00:00 06/29/18 01:00 Temperature 98.1 F Pulse Rate 82 80 81 Respiratory Rate Blood Pressure 147/77 H 161/74 H 142/84 H Pulse Oximetry 90 L 97 96 06/29/18 02:00 06/29/18 03:00 06/29/18 04:00 Temperature 97.2 F L Pulse Rate 80 74 80 Respiratory Rate Blood Pressure 149/76 H 157/91 H 164/78 H Pulse Oximetry 92 L 92 L 94 L 06/29/18 05:00 06/29/18 06:00 06/29/18 07:00 Temperature Pulse Rate 70 73 76 Respiratory Rate 29 H 29 H 25 H Blood Pressure Pulse Oximetry 91 L 90 L 89 L 06/29/18 07:45 06/29/18 08:00 06/29/18 09:00 Temperature 97.6 F Pulse Rate 105 H 90 Respiratory Rate 26 H 33 H Blood Pressure 143/82 H 147/94 H Pulse Oximetry 95 94 L 92 L 06/29/18 10:00 06/29/18 11:04 06/29/18 12:00 Temperature 97.9 F Pulse Rate 74 69 80 Respiratory Rate 33 H 27 H 25 H Blood Pressure 145/77 H 132/78 148/77 H Pulse Oximetry 94 L 96 96 06/29/18 13:00 06/29/18 14:00 06/29/18 15:00 Temperature Pulse Rate 78 94 H 76 Respiratory Rate 29 H 34 H 30 H Blood Pressure 136/81 124/86 131/89 Pulse Oximetry 92 L 95 96 06/29/18 16:00 06/29/18 17:00 06/29/18 18:00 Temperature Pulse Rate 74 88 86 Respiratory Rate 28 H 32 H 31 H Blood Pressure 133/76 133/76 121/66 Pulse Oximetry 90 L 96 97 06/29/18 20:00 Temperature 98.1 F Pulse Rate 80 Respiratory Rate 20 Blood Pressure 125/81 Pulse Oximetry 98 Intake & Output 06/29/18 06/29/18 06/30/18 06:59 18:59 06:59 Intake Total 1077 / 1077 1855 / 1855 Output Total 1200 / 1200 800 / 800 Balance -123 / -123 1055 / 1055 Weight 79 kg Intake: IV 1077 / 1077 1855 / 1855 NS Inj 1,000 ML @ 100 mls/hr IV 977 / 977 1250 / 1250 .CONT .Q10H [facility] Rx#:[id number] KCl 20 mEq Premix Inj 20 meq In 100 / 100 100 ml @ 50 mls/hr IV.SIG Q2H [facility] Rx#:[id number] Thiamine Inj 500 MG In NS Inj 505 / 505 500 ML @ 125 mls/hr IV.SIG DAILY [facility] Rx#:[id number] Oral 0 / 0 Output: Urine 1200 / 1200 800 / 800 Other: # Bowel Movements 0 Narrative: GENERAL: Alert, NAD. Speech more coherent. SKIN: Warm and dry. HEAD: Normocephalic. EYES: No scleral icterus. Left sided orbital ecchymosis noted. NECK: Supple, trachea midline. No JVD or lymphadenopathy. CARDIOVASCULAR: Regular rate and rhythm without murmurs, gallops, or rubs. RESPIRATORY: Breath sounds equal bilaterally. No accessory muscle use. GASTROINTESTINAL: Abdomen soft, non-tender, nondistended. MUSCULOSKELETAL: No cyanosis, or edema. BACK: Nontender without obvious deformity. No CVA tenderness. Results Labs CBC & Chem 7: 06/28/18 07:03 06/29/18 20:31 Labs: Microbiology 06/27/18 13:45 Blood - Peripheral Aerobic Blood Culture - Preliminary Staphylococcus coag negative 06/27/18 13:45 Blood - Peripheral Anaerobic Blood Culture - Preliminary No growth in 2 days 06/27/18 13:40 Blood - Peripheral Aerobic Blood Culture - Preliminary No growth in 2 days 06/27/18 13:40 Blood - Peripheral Anaerobic Blood Culture - Preliminary No growth in 2 days Assessment and Plan Plan Ms. Osorio is a 62 year old female who was brought to the hospital after she was found down on the floor at her place by her friend. She has a history of alcoholic intoxication. Alcohol level was less than 3. Acute delirium Toxic encephalopathy Likely alcohol intoxication -likely due to alcoholism. Imaging studies show no fracture, stroke -[facility] protocol. continue Librium. -Thiamine IV 500mg Qday 3 days then if patient tolerates PO, start Thiamine 100mg PO Qday -Folic acid 1mg Qday Hypoglycemia -Possibly due to alcoholism, liver disease. -BG was in the low 50s today. Will switch IV fluid from NS to D5W+NS+KCL. Gram-positive cocci coag negative bacteremia 1 out of 4 bottles positive. Very likely contamination. No leukocytosis, fever. No further work up. Hypokalemia -K+ improved to 3.4. Continue D5W+NS+KCL. -Will check BMP, CPK tomorrow. IF K+ is corrected, we can adjust fluid as well. Alcoholic liver disease -AST(452), ALT(94), bilirubin as well as INR (1.6) elevated. -Maddrey's discrimination function score around 24. No need for steroid at this point. Mild rhabdomyolysis -CPK around 1300 --> 3000. -Continue IV fluid. Lactic acidosis - 4.1 --> 3.6. Full code. Lovenox for DVT. INR 1.6 is due to liver disease. Discharge plan: Anticipate discharge to SNF within 1-2 days. Progress Note: Quality VTE Deep Vein Thrombosis/Pulmonary Embolism Present on Admission: No
[2018-06-30] MEDS: Chlorhexidine Gluconate 2% 1 Pack (2 Cloths) TOPICAL SCH (03:17)
[2018-06-30] MEDS: KCL 20 mEq/D5W/NaCl 0.9% Inj 1,000 ML IV.CONT SCH ×2 (03:58→15:28)
[2018-06-30] MEDS: Enoxaparin Inj 40 MG/0.4 ML Syringe SQ SCH (09:12)
[2018-06-30] MEDS: Folic Acid 1 MG Tablet PO SCH (09:12)
[2018-06-30] MEDS: Thiamine Inj 500 MG in Sodium Chlor 0.9% Inj 500 ML IV.SIG SCH (09:13)
[2018-06-30 10:39] LABS: Anion Gap 9 meq/L (5-15); Blood Urea Nitrogen 2 mg/dL (7-18); Calcium 7.1 mg/dL (8.5-10.1); Carbon Dioxide 26.9 meq/L (21.0-32.0); Chloride 98 meq/L (98-107); Creatine Kinase 1808 U/L (26-192); Glomerular Filtration Rate Greater Than 89 mL/min (>89); Glucose,Random 78 mg/dL (74-106); Potassium 3.5 meq/L (3.5-5.1); Sodium 134 meq/L (136-145)
[2018-06-30 11:10] LABS: Calcium-Albumin Corrected 7.9 mg/dL (8.5-10.1); Creatine Kinase MB 17.3 ng/mL (0.5-3.6)
[2018-06-30] MEDS: Acetaminophen 325 MG Tablet PO PRN (11:50)
--- NOTE | 2018-06-30 21:51 | P.PNIM ---
Subjective Interval history: Follow-up for likely alcohol intoxication and withdrawal. Patient was seen this afternoon. Currently doing well. She is more alert and coherent than last two days. No fever, chills. She wants to go to rehab but locally not outside [place]. Physical Exam Vital signs: Vital Signs 06/30/18 00:00 06/30/18 04:00 06/30/18 08:00 Temperature 97.7 F 97.4 F L 97.5 F L Pulse Rate 83 77 68 Respiratory Rate 22 24 16 Blood Pressure 117/78 123/66 103/66 Pulse Oximetry 91 L 97 96 06/30/18 09:09 06/30/18 10:40 06/30/18 12:00 Temperature 97.8 F Pulse Rate 76 65 Respiratory Rate 18 18 Blood Pressure 117/58 L Pulse Oximetry 94 L 96 06/30/18 13:29 06/30/18 16:00 06/30/18 16:45 Temperature 97.6 F Pulse Rate 79 88 82 Respiratory Rate 16 Blood Pressure 87/58 L Pulse Oximetry 96 06/30/18 17:04 06/30/18 20:00 Temperature 98.4 F Pulse Rate 70 Respiratory Rate 18 Blood Pressure 100/53 L 126/61 Pulse Oximetry 93 L Intake & Output 06/30/18 06/30/18 07/01/18 06:59 18:59 06:59 Intake Total 1000 / 1000 805 / 805 Output Total 750 / 750 Balance 1000 / 1000 55 / 55 Weight 79 kg Intake: IV 1000 / 1000 805 / 805 D5W/NS + KCL 20 mEq Inj 1,000 1000 / 1000 300 / 300 ML @ 100 mls/hr IV.CONT .Q10H [facility] Rx#:[id number] Thiamine Inj 500 MG In NS Inj 505 / 505 500 ML @ 125 mls/hr IV.SIG DAILY [facility] Rx#:[id number] Output: Urine 750 / 750 Other: # Incontinent Voids 1 Date of Last Bowel Movement 06/30/18 # Incontinent Bowel Movements 1 Narrative: GENERAL: Alert, NAD. Speech more coherent. SKIN: Warm and dry. HEAD: Normocephalic. EYES: No scleral icterus. Left sided orbital ecchymosis noted, improved. NECK: Supple, trachea midline. No JVD or lymphadenopathy. CARDIOVASCULAR: Regular rate and rhythm without murmurs, gallops, or rubs. RESPIRATORY: Breath sounds equal bilaterally. No accessory muscle use. GASTROINTESTINAL: Abdomen soft, non-tender, nondistended. MUSCULOSKELETAL: No cyanosis, or edema. BACK: Nontender without obvious deformity. No CVA tenderness. Results Labs CBC & Chem 7: 06/28/18 07:03 06/30/18 07:49 Labs: Microbiology 06/27/18 13:45 Blood - Peripheral Aerobic Blood Culture - Preliminary Staphylococcus coag negative 06/27/18 13:45 Blood - Peripheral Anaerobic Blood Culture - Preliminary No growth in 3 days 06/27/18 13:40 Blood - Peripheral Aerobic Blood Culture - Preliminary No growth in 3 days 06/27/18 13:40 Blood - Peripheral Anaerobic Blood Culture - Preliminary No growth in 3 days Assessment and Plan Plan Ms. Osorio is a 62 year old female who was brought to the hospital after she was found down on the floor at her place by her friend. She has a history of alcoholic intoxication. Alcohol level was less than 3. Acute delirium Toxic encephalopathy Likely alcohol intoxication -likely due to alcoholism. Imaging studies show no fracture, stroke -[facility] protocol. continue Librium. -Received IV thiamine. Currently on Thiamine 100mg PO BID. -Folic acid 1mg Qday Hypoglycemia -Possibly due to alcoholism, liver disease. -Continue IV fluid from NS to D5W+NS+KCL. -BMP in the AM. IF K+ is improved, switch fluid without KCL. Gram-positive cocci coag negative bacteremia 1 out of 4 bottles positive. Very likely contamination. No leukocytosis, fever. No further work up. Hypokalemia -K+ improved to 3.5. Continue D5W+NS+KCL. -Will check BMP, CPK tomorrow. IF K+ is corrected, we can adjust fluid as well. Alcoholic liver disease -AST(452), ALT(94), bilirubin as well as INR (1.6) elevated. -Maddrey's discrimination function score around 24. No need for steroid at this point. Mild rhabdomyolysis -CPK around 1300 --> 3000 --> 1800 -Continue IV fluid. Lactic acidosis - 4.1 --> 3.6. Full code. Lovenox for DVT. INR 1.6 is due to liver disease. Discharge plan: Will consult CM to start looking into SNF in [facility]. Progress Note: Quality VTE Deep Vein Thrombosis/Pulmonary Embolism Present on Admission: No
[2018-07-01] MEDS: Chlorhexidine Gluconate 2% 1 Pack (2 Cloths) TOPICAL SCH (04:06)
[2018-07-01] MEDS: KCL 20 mEq/D5W/NaCl 0.9% Inj 1,000 ML IV.CONT SCH ×2 (06:28→10:18)
--- NOTE | 2018-07-01 08:07 | P.PNIM ---
Subjective Interval history: f/u; alcohol intoxication/ withdrawal in no acute distress. mildly lethargic but easily arousable. has generalized bodyache. Physical Exam Vital signs: Vital Signs 06/30/18 09:09 06/30/18 10:40 06/30/18 12:00 Temperature 97.8 F Pulse Rate 76 65 Respiratory Rate 18 18 Blood Pressure 117/58 L Pulse Oximetry 94 L 96 06/30/18 13:29 06/30/18 16:00 06/30/18 16:45 Temperature 97.6 F Pulse Rate 79 88 82 Respiratory Rate 16 Blood Pressure 87/58 L Pulse Oximetry 96 06/30/18 17:04 06/30/18 20:00 06/30/18 21:00 Temperature 97.9 F Pulse Rate 78 Respiratory Rate 18 Blood Pressure 100/53 L 86/55 L 102/70 Pulse Oximetry 99 07/01/18 00:00 07/01/18 04:00 Temperature 98.3 F 98.4 F Pulse Rate 80 78 Respiratory Rate 17 18 Blood Pressure 108/72 108/65 Pulse Oximetry 95 98 Intake & Output 06/30/18 07/01/18 07/01/18 18:59 06:59 18:59 Intake Total 805 / 805 Output Total 750 / 750 500 / 500 Balance 55 / 55 -500 / -500 Weight 79.5 kg Intake: IV 805 / 805 D5W/NS + KCL 20 mEq Inj 1,000 300 / 300 ML @ 100 mls/hr IV.CONT .Q10H [facility] Rx#:[id number] Thiamine Inj 500 MG In NS Inj 505 / 505 500 ML @ 125 mls/hr IV.SIG DAILY [facility] Rx#:[id number] Output: Urine 750 / 750 500 / 500 Other: # Incontinent Voids 1 Date of Last Bowel Movement 06/30/18 # Incontinent Bowel Movements 1 Constitutional no acute distress Routine HEENT Exam Comments: left periorbital ecchymosis. Routine Respiratory Exam Present CTA bilaterally Routine Cardiovascular Exam Present RRR Routine Abdominal Exam Present soft Routine Extremities Exam Comments: no pedal edema. Routine Neurological Exam mildly lethargic but easily arousable. Results Labs CBC & Chem 7: 06/28/18 07:03 06/30/18 07:49 Labs: Microbiology 06/27/18 13:45 Blood - Peripheral Aerobic Blood Culture - Preliminary Staphylococcus coag negative 06/27/18 13:45 Blood - Peripheral Anaerobic Blood Culture - Preliminary No growth in 3 days 06/27/18 13:40 Blood - Peripheral Aerobic Blood Culture - Preliminary No growth in 3 days 06/27/18 13:40 Blood - Peripheral Anaerobic Blood Culture - Preliminary No growth in 3 days Assessment and Plan Plan A/P Acute delirium Toxic encephalopathy Likely alcohol intoxication -likely due to alcoholism. Imaging studies show no fracture, stroke -[facility] protocol.will taper down the Librium. -Received IV thiamine. Currently on Thiamine 100mg PO BID. -Folic acid 1mg Qday Hypoglycemia -Possibly due to alcoholism, liver disease. -Continue IV fluid from NS to D5W+NS+KCL. Gram-positive cocci coag negative bacteremia 1 out of 4 bottles positive. Very likely contamination. No leukocytosis, fever. No further work up. Hypokalemia -improved. Alcoholic liver disease -AST(452), ALT(94), bilirubin as well as INR (1.6) elevated. -Maddrey's discrimination function score around 24. No need for steroid at this point. Mild rhabdomyolysis -Continue IV fluid. Lactic acidosis - 4.1 --> 3.6. Full code. INR 1.6 is due to liver disease. Discharge Planning: needs SNF. Progress Note: Quality VTE Deep Vein Thrombosis/Pulmonary Embolism Present on Admission: No
[2018-07-01] MEDS: Folic Acid 1 MG Tablet PO SCH (09:05)
[2018-07-01 10:29] LABS: Anion Gap 6 meq/L (5-15); Blood Urea Nitrogen 2 mg/dL (7-18); Calcium 6.6 mg/dL (8.5-10.1); Carbon Dioxide 29.8 meq/L (21.0-32.0); Chloride 102 meq/L (98-107); Glomerular Filtration Rate Greater Than 89 mL/min (>89); Glucose,Random 95 mg/dL (74-106); Sodium 138 meq/L (136-145)
[2018-07-01 10:30] LABS: Potassium 3.8 meq/L (3.5-5.1)
[2018-07-01 10:35] LABS: Albumin 2.6 g/dL (3.4-5.0); Calcium-Albumin Corrected 7.7 mg/dL (8.5-10.1)
[2018-07-01 13:47] LABS: CKMB Percent 0.9 % (0.0-4.0); Creatine Kinase MB 8.2 ng/mL (0.5-3.6)
[2018-07-02] MEDS: Chlorhexidine Gluconate 2% 1 Pack (2 Cloths) TOPICAL SCH (04:10)
--- NOTE | 2018-07-02 07:57 | P.PNIM ---
Subjective Interval history: f/u; alcohol intoxication/ withdrawal in no acute distress. more alert today. d/w the RN and no acute issues over night. Physical Exam Vital signs: Vital Signs 07/01/18 08:18 07/01/18 08:44 07/01/18 11:10 Temperature 98.5 F 97.2 F L Pulse Rate 75 76 66 Respiratory Rate 18 20 16 Blood Pressure 114/72 110/72 Pulse Oximetry 97 100 96 07/01/18 13:46 07/01/18 16:29 07/01/18 20:00 Temperature 97.7 F 97.1 F L Pulse Rate 66 80 71 Respiratory Rate 20 16 18 Blood Pressure 95/65 L 97/68 L Pulse Oximetry 96 97 07/02/18 00:00 07/02/18 04:00 07/02/18 04:24 Temperature 98.2 F 97.3 F L Pulse Rate 64 76 Respiratory Rate 18 17 Blood Pressure 99/65 L 120/83 Pulse Oximetry 94 L 92 L 94 L Intake & Output 07/01/18 07/02/18 07/02/18 18:59 06:59 18:59 Intake Total 700 / 700 660 / 660 Output Total 1050 / 1050 Balance 700 / 700 -390 / -390 Weight 79.9 kg Intake: IV 700 / 700 300 / 300 D5W/NS + KCL 20 mEq Inj 1,000 700 / 700 300 / 300 ML @ 100 mls/hr IV.CONT .Q10H [facility] Rx#:[id number] Oral 360 / 360 Output: Urine 1050 / 1050 Other: # Urine Diapers 2 Constitutional no acute distress Routine HEENT Exam Comments: left periorbital ecchymosis. Routine Respiratory Exam Present CTA bilaterally Routine Cardiovascular Exam Present RRR Routine Abdominal Exam Present soft Routine Extremities Exam Comments: no pedal edema. Routine Neurological Exam Present alert more alert today. Results Labs CBC & Chem 7: 06/28/18 07:03 07/01/18 07:56 Labs: Microbiology 06/27/18 13:45 Blood - Peripheral Aerobic Blood Culture - Final Staphylococcus warneri 06/27/18 13:45 Blood - Peripheral Anaerobic Blood Culture - Preliminary No growth in 4 days 06/27/18 13:40 Blood - Peripheral Aerobic Blood Culture - Preliminary No growth in 4 days 06/27/18 13:40 Blood - Peripheral Anaerobic Blood Culture - Preliminary No growth in 4 days Assessment and Plan Plan A/P Acute delirium Toxic encephalopathy Likely alcohol intoxication -likely due to alcoholism. Imaging studies show no fracture, stroke -[facility] protocol.will continue to taper down the Librium. - Currently on Thiamine 100mg PO BID. -Folic acid 1mg Qday Hypoglycemia -resolved -Possibly due to alcoholism, liver disease. -stopped the IV fluid -dc accu-checks Gram-positive cocci coag negative bacteremia 1 out of 4 bottles positive. Very likely contamination. No leukocytosis, fever. No further work up. Hypokalemia -improved. Alcoholic liver disease -AST(452), ALT(94), bilirubin as well as INR (1.6) elevated. -Maddrey's discrimination function score around 24. No need for steroid at this point. Mild rhabdomyolysis- improved. Lactic acidosis - improved. Full code. INR 1.6 is due to liver disease. Discharge Planning: needs SNF. Progress Note: Quality VTE Deep Vein Thrombosis/Pulmonary Embolism Present on Admission: No
[2018-07-02] MEDS: Folic Acid 1 MG Tablet PO SCH (09:53)
[2018-07-02] MEDS: OLANZapine 10 MG Tablet PO SCH (21:15)
--- NOTE | 2018-07-03 08:19 | P.PNIM ---
Subjective Interval history: f/u; alcohol intoxication/withdrawal in no acute distress. looks overall better today. denies pain. d/w the RN. Physical Exam Vital signs: Vital Signs 07/02/18 11:40 07/02/18 16:00 07/02/18 20:00 Temperature 97.8 F 98.3 F 98.4 F Pulse Rate 86 68 74 Respiratory Rate 23 16 18 Blood Pressure 101/74 121/69 90/55 L Pulse Oximetry 97 97 93 L 07/03/18 00:00 07/03/18 04:00 07/03/18 08:00 Temperature 98.3 F 97.6 F 97.7 F Pulse Rate 78 77 72 Respiratory Rate 18 18 20 Blood Pressure 113/80 130/72 120/91 H Pulse Oximetry 97 92 L 94 L Intake & Output 07/02/18 07/03/18 07/03/18 18:59 06:59 18:59 Intake Total 620 / 620 720 / 720 Output Total 700 / 700 Balance -80 / -80 720 / 720 Weight 80 kg Intake: Oral 620 / 620 720 / 720 Output: Urine Amount (Catheter) 700 / 700 Female External 700 / 700 Other: # Voids 3 Date of Last Bowel Movement 07/02/18 07/02/18 # Bowel Movements 1 Constitutional no acute distress Routine HEENT Exam Comments: left periorbital ecchymosis- improving. Routine Respiratory Exam Present CTA bilaterally Routine Cardiovascular Exam Present RRR Routine Abdominal Exam Present soft Routine Extremities Exam Comments: no pedal edema. Routine Neurological Exam Present alert more alert today. Urinary Catheter Management Female External: Cath placed during this visit: no Results Labs CBC & Chem 7: 06/28/18 07:03 07/01/18 07:56 Labs: Microbiology 06/27/18 13:45 Blood - Peripheral Aerobic Blood Culture - Final Staphylococcus warneri 06/27/18 13:45 Blood - Peripheral Anaerobic Blood Culture - Final No growth in 5 days 06/27/18 13:40 Blood - Peripheral Aerobic Blood Culture - Final No growth in 5 days 06/27/18 13:40 Blood - Peripheral Anaerobic Blood Culture - Final No growth in 5 days Assessment and Plan Plan A/P Acute delirium- improving. Toxic encephalopathy- improving. Likely alcohol intoxication -likely due to alcoholism. Imaging studies show no fracture, stroke -[facility] protocol.will continue to taper down the Librium. - Currently on Thiamine 100mg PO BID. -Folic acid 1mg Qday Hypoglycemia -resolved -Possibly due to alcoholism, liver disease. -stopped the IV fluid -dc'ed accu-checks Gram-positive cocci coag negative bacteremia 1 out of 4 bottles positive. Very likely contamination. No leukocytosis, fever. No further work up. Hypokalemia -improved. Alcoholic liver disease -AST(452), ALT(94), bilirubin as well as INR (1.6) elevated. -Maddrey's discrimination function score around 24. No need for steroid at this point. Mild rhabdomyolysis- improved. Lactic acidosis - improved. Full code. INR 1.6 is due to liver disease. Discharge Planning: needs SNF- possible discharge early this week. case management consulted. Progress Note: Quality VTE Deep Vein Thrombosis/Pulmonary Embolism Present on Admission: No
[2018-07-03] MEDS: Folic Acid 1 MG Tablet PO SCH (09:51)
[2018-07-03] MEDS: OLANZapine 10 MG Tablet PO SCH (20:04)
[2018-07-04] MEDS: Acetaminophen 325 MG Tablet PO PRN (02:23)
[2018-07-04] MEDS: Folic Acid 1 MG Tablet PO SCH (08:14)
--- NOTE | 2018-07-04 13:15 | P.DS ---
DS: Providers Date of admission: 06/27/18 15:49 Primary care physician: UNKNOWN Consults: 06/28/18 10:21 HUB Only Consult Order Routine Consulting Provider: Deepak Sotelo 07/02/18 15:28 HUB Only Consult Order Routine Consulting Provider: Judson Morel Brief History from admission: Ms. Osorio is a 62-year-old female who was brought to the hospital due to altered mental status and traumatic injury to the left eye. Per EMS report, patient denied falling or having any head pain. However, she has been drinking and intoxicated. EMS found her with a black eye. Upon arrival, serum alcohol level was 3. Urine drug screen was negative. At the time of [facility] interview in the ICU room, patient is alert but speech is gargled and very difficult to understand. Unfortunately, it is also difficult to obtain proper history. She does admit to drinking alcohol and smoking but unable to quantify. Patient denies any chest pain, shortness of breath. Past medical history: Unable to obtain. Alcoholism is likely present. Past surgical history: Unable to obtain Social history: Smokes and drinks alcohol. Family history: Unable to obtain. DS: Summary Mrs. Osorio is a 62-year-old female. She came in secondary to altered mental status related to alcohol withdrawal. She also had rhabdomyolysis. Rhabdomyolysis is improved. Altered mental status has trended back towards baseline. She is currently alert and oriented x3. No further alcohol withdrawal. She was weaned down with CIWA protocol and Librium. Currently she is off Librium and doing well. No signs of DTs. Global weakness remains. She is medically stable for discharge will need further physical therapy. She is cleared [facility] with [facility] when bed available. Time Spent with Patient Total time spent providing and/or coordinating discharge services: Greater than 30 minutes Quality: VTE Deep Vein Thrombosis/Pulmonary Embolism Present on Admission: No Results Impressions ITS Impressions Cervical Spine CT 06/27/18 12:00 CONCLUSION: 1. No acute fracture or subluxation of the cervical spine. 2. Degenerative changes as described. Face CT 06/27/18 12:00 CONCLUSION: 1. No acute facial fracture demonstrated. 2. Old fracturing of the nose. 3. Acute left periorbital preseptal soft tissue hematoma. Grossly intact globe. Post septal soft tissues within normal limits. Head CT 06/27/18 12:00 CONCLUSION: 1. No bleed or other acute intracranial abnormality demonstrated. 2. Left frontal scalp hematoma. No skull fracture. . . Chest X-Ray 06/27/18 12:01 CONCLUSION: No evidence of acute cardiopulmonary disease. Pelvis X-Ray 06/27/18 12:01 CONCLUSION: Intact pelvis. Abdomen/Pelvis CT 06/27/18 12:30 CONCLUSION: 1. No visceral organ injury, acute fracture or other acute abnormality demonstrated. 2. Chronic L5 pars defects. Grade 2 L5/S1 spondylolisthesis. 3. Aortoiliac atherosclerosis. No aneurysm. Chest CT 06/27/18 12:30 CONCLUSION: 1. No acute chest abnormality demonstrated. 2. There are old left rib fractures. 3. Coronary artery calcification. 4. Large hiatal hernia/intrathoracic stomach. 5. Clear lungs. Discharge Plan Discharge Disposition Patient Disposition: 03 Discharge to SNF Discharge Condition Condition: Stable Discharge Order Discharge Orders: Discharge Order (Routine); Ordered 07/04/18 Ordered By: Eddie Lewis Physicians Team Primary Care Provider: UNKNOWN, Attending Provider: Eddie Lewis Other Providers: Deepak Sotelo ; [facility] Rxs /Orders / Referrals /Forms Prescriptions: Continue hydroxyzine HCl 10 mg Tablet 10 mg PO BID PRN (Reason: Anxiety) RF: 0 olanzapine 20 mg Tablet 20 mg PO HS RF: 0 olanzapine 5 mg Tablet 5 mg PO DAILY RF: 0 folic acid 1 mg Tablet 1 mg PO DAILY RF: 0 Discontinued alprazolam [Xanax] 0.25 mg Tablet 0.25 mg PO BID RF: 0 [facility] [Agency] - See Instructions UNKNOWN, [Primary Care Provider] - See Instructions Status ED Status: Left Department
[2018-07-04] MEDS ORDERED: Ondansetron Liq 4 MG/5 ML UDC PO PRN (18:19)
[2018-07-04] MEDS: OLANZapine 10 MG Tablet PO SCH (20:03)
[2018-07-05] MEDS: Acetaminophen 325 MG Tablet PO PRN ×2 (03:22→09:11)
[2018-07-05] MEDS: Folic Acid 1 MG Tablet PO SCH (09:11)
[2018-07-05 10:38] VITALS: BP 109/71; PULSE 66; TEMP 98; O2SAT 99
[2018-07-05 11:03] VITALS: RESP 19
--- NOTE | 2018-07-05 12:31 | P.PNIM ---
Subjective Interval history: Patient discharged 07/04/2018. halfway facility arrangements in process and patient will be transferred to [facility] facility today. Physical Exam Vital signs: Vital Signs 07/04/18 16:00 07/04/18 19:20 07/05/18 00:00 Temperature 97.5 F L 98.6 F 97.6 F Pulse Rate 69 73 69 Respiratory Rate 18 19 19 Blood Pressure 92/64 L 94/64 L 119/69 Pulse Oximetry 99 96 95 07/05/18 04:20 07/05/18 08:00 07/05/18 09:41 Temperature 97.6 F 98 F Pulse Rate 73 66 Respiratory Rate 17 18 19 Blood Pressure 105/64 109/71 Pulse Oximetry 100 99 Intake & Output 07/04/18 07/05/18 07/05/18 18:59 06:59 18:59 Intake Total 360 / 360 Output Total 1000 / 1000 500 / 500 Balance -640 / -640 -500 / -500 Weight 79.2 kg Intake: Oral 360 / 360 Output: Urine 1000 / 1000 500 / 500 Other: # Voids 2 # Incontinent Voids 4 Date of Last Bowel Movement 07/04/18 07/04/18 Urinary Catheter Management Female External: Cath placed during this visit: no Results Labs CBC & Chem 7: 06/28/18 07:03 07/01/18 07:56 Progress Note: Quality VTE Deep Vein Thrombosis/Pulmonary Embolism Present on Admission: No
== END 2018-07-05 11:25 | DRG 896 ==
LOC: NEPD 11:47 → NEDA 15:49 → HIMC 16:55 → H7ONC 06-29 18:37
PROVIDERS: ADMIT Hospitalist; ATTEND Hospitalist
CPT/HCPCS: 70450; 70486; 71010; 71045; 71260; 72125; 72170; 74177; 80048; 80076; 80307; 81001; 82040; 82140; 82550; 82552; 82948; 82962; 83605; 83735; 84132; 84484; 85025; 85610; 85730; 87040; 87077; 87149; 87186; 87205; 87641; 90471; 90702; 90714; 90718; 90774; 90775; 90784; 93005; 94640; 94664; 94665; 96374; 96375; 97110; 97116; 97162; 97167; 97530; 97535; 99285; C8952; J1650; J2060; J2405; J3411; J3480; J7030; J7040; Q9967